=== PATIENT | male | born 1945 | race Caucasian/White ===

== ENCOUNTER → 2022-11-15 14:57 | Outpatient (BNVA) | payer OTHER, SELFPAY | PROVIDERS: PCP Internal Medicine; Visit Provider Psychiatry & Neurology Neurology | DX: G20 Parkinson's disease (principal) ==

== ENCOUNTER → 2023-02-14 16:01 | Outpatient (BNVA) | payer OTHER, SELFPAY | PROVIDERS: PCP Internal Medicine; Visit Provider Psychiatry & Neurology Neurology | DX: Z13.89 Encounter for screening for other disorder (principal) ==

== ENCOUNTER 2023-06-13 15:02 | Outpatient (AMB) | payer OTHER, SELFPAY ==
[2023-06-13 15:06] VITALS: BP 110/74; PULSE 60; O2SAT 99; BMI 26.1
--- NOTE | 2023-06-13 15:06 | MHC.OFFVIS ---
Intake Vital Signs 06/13/23 15:06 Height 5 ft 10 in Weight 182 lb 2 oz BMI 26.1 BP 110/74 Blood Pressure Location Rt brachial Position Sitting Pulse 60 Pulse Source Pulse Oximeter Pulse Oximetry (%) 99 Intake Visit Reasons: 3m f/u parkinsons-confirmed Intake Note: Patient presents for 3 month follow up parkinsons Allergies No Known Allergies Allergy (Mild, Unverified 06/13/23 15:07) N/A Medication List - Last Reconciled 06/13/23 by Raven Cade MD allopurinol 300 mg PO DAILY amantadine HCl 100 mg PO BID apixaban (Eliquis) 5 mg PO BID B-complex with vitamin C 1 cap PO DAILY calcium citrate 200 mg PO DAILY carbidopa-levodopa 25-100 mg 1 tab PO .5 times a day donepezil 1.5 tabs orally daily; finasteride 5 mg PO DAILY flu vac 2020 [id number](PF) 60 mcg (15 mcg x 4)/0.5 mL IM levothyroxine 125 mcg PO DAILY melatonin 3 mg PO BEDTIME PRN melatonin 1 mg PO BEDTIME PRN metoprolol tartrate 25 mg PO BID polyethylene glycol 3350 (Miralax) 17 grams PO DAILY rasagiline 1 mg PO DAILY tamsulosin 0.4 mg PO DAILY HPI HPI Comments History of Present Illness Details 78y/o Right handed male comes for follow up of Parkinsons disease. He is accompanied by his Adele.He is more fatigued . He is exercising 2 days a week and drinking 60 oz per day .His is not sure if amantadine 100 mg bid helped or not. He stopped nuplazid - his did not feel it helped. He has episodes of panic attacks- he talks about not being safe in the house . His plays some music and it helps . He denies visual hallucinations. History-He noticed shuffling about 6 years ago and it has progressively worsened since then and was diagnosed with parkinsons disease by Dr. Judge .He also has tremors are mostly at rest . He reports mild memory issues. Sleep is ok . He frequently talks in his sleep. No screaming or acting out dreams . He takes occasional daytime naps. He has mild depression and less motivated. He speech is softer or he has occasional drooling . He has difficulty with hand writing, using utensils, needs help with dressing , needs help with shower. He has trouble turning in bed, has trouble lifting his legs. He has trouble getting out of car. He goes to [facility] for 2 classes/week His gait is slow and mildly off balance No falls. No dizziness , no double vision . He has loose stools and mild urgency . [facility] Medical History (Updated 06/13/23 @ 15:33 by Raven Cade MD) Anxiety Arthritis Atrial fibrillation Borderline hyperlipidemia Neck pain ODILIA on CPAP Prediabetes Prostate enlargement Spasmodic torticollis Surgical History H/O lithotripsy H/O neck surgery Status post cryoablation Social History Alcohol intake: never Patient Tobacco Use Status: Never used Tobacco Physical Exam Vital Signs: Last Vital Signs Pulse 60 06/13/23 15:06 BP 110/74 06/13/23 15:06 Pulse Ox 99 06/13/23 15:06 BMI result Body Mass Index 26.1 Const Orientation/consciousness: patient oriented x3 Neuro Other: antecollis, right laterocollis, left torticollis Right UE rest tremors Moderately decreased facial expression , blink Tongue movements are slow Cogwheel rigidity 2+ RUE 1 + LUE FFM and foot taps moderately decreased R>L Gait - slow, stooped , tilted to right , decreased arm swings r>L Hypophonia General: patient oriented x3 Cranial nerves: Yes Facial sensation intact/muscles of mastication intact, Yes Bilaterally intact EOM present, Yes Nystagmus not present, Yes Normal facial strength present, Yes Midline tongue present and Yes Symmetric palate elevation present Motor exam (neuro): 5/5 motor strength present throughout Deep tendon reflexes (DTR's): Right triceps reflex intensity grade: 1+, Left triceps reflex intensity grade: 1+, Rt Biceps (C5, C6): 1+, Left biceps reflex intensity grade: 1+, Right brachioradialis reflex intensity grade: 1+, Left brachioradialis reflex intensity grade: 1+, Right patellar reflex intensity grade: 1+ and Left patellar reflex intensity grade: 1+ Coordination: [id number] test normal Psych Affect: Depressed mood present Assessment & Plan Assessment & Plan (1) Parkinson's disease: Code(s): G20 - Parkinson's disease (2) Spasmodic torticollis: Code(s): G24.3 - Spasmodic torticollis (3) Anxiety: Code(s): F41.9 - Anxiety disorder, unspecified Plan Continue sinemet 25/100 1tab 1-2-1-2-1 AMantadine 100mg bid rasagiline 1mg qd donepezil 10mg qd discussed botox for neck Medications: Changed From carbidopa-levodopa 25-100 mg 1 tab PO .5 times a day To carbidopa-levodopa 25-100 mg 1 tab tid and 2 bid ( 1-2-1-2-1) orally 5 TIMES A DAY; 210 tabs 6RF Coding Level of Care Code Est Pt Level 5 (16378) Diagnoses Parkinson's disease G20 Spasmodic torticollis G24.3 Anxiety F41.9 Time Spent (min) 33
== END 2023-06-13 15:43 | disposition home or self-care (01) ==
PROVIDERS: Visit Provider Psychiatry & Neurology Neurology
DX: G20 Parkinson's disease (principal); G24.3 Spasmodic torticollis; F41.9 Anxiety disorder, unspecified
CPT/HCPCS: 99214

== ENCOUNTER → 2023-06-13 15:02 | Outpatient (BNVA) | payer OTHER, SELFPAY | PROVIDERS: Visit Provider Psychiatry & Neurology Neurology | DX: G20 Parkinson's disease (principal); R44.3 Hallucinations, unspecified; G24.3 Spasmodic torticollis ==

== ENCOUNTER 2023-09-04 12:30 | Outpatient (AMB) | payer OTHER, SELFPAY ==
--- NOTE | 2023-09-04 12:40 | A.OFFVIS_ITS ---
Intake Vital Signs 09/04/23 12:41 Height 5 ft 10 in BP 118/68 Blood Pressure Location Rt brachial Position Sitting Respiration 15 Pulse 53 Pulse Source Pulse Oximeter Pulse Oximetry (%) 96 Oxygen Delivery Method Room Air Intake Visit Reasons: Botox appt - LVM Intake Note: Pt presents to the office for Botox injections. 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: No Allergies No Known Allergies Allergy (Mild, Unverified 09/04/23 12:41) N/A Medication List - Last Reconciled 09/04/23 by Raven Cade MD allopurinol 300 mg PO DAILY amantadine HCl 100 mg PO BID apixaban (Eliquis) 5 mg PO BID B-complex with vitamin C 1 cap PO DAILY calcium citrate 200 mg PO DAILY carbidopa-levodopa 25-100 mg 1 tab tid and 2 bid ( 1-2-1-2-1) orally 5 TIMES A DAY; donepezil 1.5 tabs orally daily; finasteride 5 mg PO DAILY flu vac 2020 [id number](PF) 60 mcg (15 mcg x 4)/0.5 mL IM levothyroxine 125 mcg PO DAILY melatonin 3 mg PO BEDTIME PRN melatonin 1 mg PO BEDTIME PRN metoprolol tartrate 25 mg PO BID polyethylene glycol 3350 (Miralax) 17 grams PO DAILY rasagiline 1 mg PO DAILY 90 days tamsulosin 0.4 mg PO DAILY HPI HPI Comments History of Present Illness Details 78Y/o male comes for treatment of his cervical dystonia. ? Side effects including spread of toxin effect, dysphagia, breathing difficulties , bronchitis etc was discussed in detail and the patient agreed to the procedure.An informed consent was obtained ??? Botulinum toxin type A 100units X 1 -was diluted with 2 cc of normal saline at a concentration of 25 units in 0.5cc saline. Lot number [id number] expiration 11/2025 ??? Muscles injected ??? mayur Splenius - 25 units each ??? right levator 25 units each ??? left semispinalis 25units each ??? Total used 100 units PFS Medical History Anxiety Spasmodic torticollis Neck pain ODILIA on CPAP Atrial fibrillation Arthritis Borderline hyperlipidemia Prostate enlargement Prediabetes Surgical History H/O neck surgery Status post cryoablation H/O lithotripsy Social History Alcohol intake: never Patient Tobacco Use Status: Never used Tobacco Physical Exam Vital Signs: Last Vital Signs Pulse 53 09/04/23 12:41 Resp 15 09/04/23 12:41 BP 118/68 09/04/23 12:41 Pulse Ox 96 09/04/23 12:41 Oxygen Delivery Method Room Air 09/04/23 12:41 Const Orientation/consciousness: patient oriented x3 Neuro Other: antecollis, right laterocollis, left torticollis Right UE rest tremors Moderately decreased facial expression , blink Tongue movements are slow Cogwheel rigidity 2+ RUE 1 + LUE FFM and foot taps moderately decreased R>L Gait - slow, stooped , tilted to right , decreased arm swings r>L Hypophonia General: patient oriented x3 Cranial nerves: Yes Facial sensation intact/muscles of mastication intact, Yes Bilaterally intact EOM present, Yes Nystagmus not present, Yes Normal facial strength present, Yes Midline tongue present and Yes Symmetric palate elevation present Motor exam (neuro): 5/5 motor strength present throughout Coordination: [id number] test normal Psych Affect: Depressed mood present Office Procedures Botulinum toxin Injection 88329 - Dystonia Procedure code (CPT) selection complete Office Meds onabotulinumtoxinA 100 unit solution for injection Performing Provider: Raven Cade MD Performing Location: [facility] [place] [facility] Administered by: Raven Cade MD on 09/04/23 13:23 Dose Route Admin Location Dispensed Lot Number Expiration Date [facility] [place] 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 100 unit IM 100 units [id number] 11/29/25 6662-8855-12 ALLERGAN/BOTOX Comments: see HPI Assessment & Plan Assessment & Plan (1) Spasmodic torticollis: Code(s): G24.3 - Spasmodic torticollis (2) Parkinson's disease: Code(s): G20 - Parkinson's disease Plan Patient tolerated the procedure well He will call with any side effects Increase melatonin 10mg qhs add caffiene to improve fatigue Orders: Orders AMB Botulinum toxin Injection Today G24.3 - Spasmodic torticollis Coding Level of Care Code Est Pt Level 1 (51261) Diagnoses Spasmodic torticollis G24.3 Parkinson's disease G20 CPT Codes Botox Injection - Botox 4: 34174 - Dystonia ([id number])
[2023-09-04 12:41] VITALS: BP 118/68; PULSE 53; RESP 15; O2SAT 96
== END 2023-09-04 13:23 | disposition home or self-care (01) ==
PROVIDERS: PCP Internal Medicine; Visit Provider Psychiatry & Neurology Neurology
DX: G24.3 Spasmodic torticollis (principal)
CPT/HCPCS: 64616

== ENCOUNTER → 2023-09-04 12:30 | Outpatient (BNVA) | payer OTHER, SELFPAY | PROVIDERS: PCP Internal Medicine; Visit Provider Psychiatry & Neurology Neurology | DX: G24.3 Spasmodic torticollis (principal); G20.C Parkinsonism, unspecified | CPT/HCPCS: 64616; 99211; J0585 ==

== ENCOUNTER 2023-11-15 11:30 | Emergency (ER) | payer OTHER, SELFPAY ==
[2023-11-15 11:44] VITALS: BP 128/56; PULSE 64; RESP 18; TEMP 37.1; O2SAT 99; BMI 25.1
--- NOTE | 2023-11-15 12:00 | ECG_ITS ---
Test Reason : fall Blood Pressure : / mmHG Vent. Rate : 061 BPM Atrial Rate : 000 BPM P-R Int : 000 ms QRS Dur : 084 ms QT Int : 406 ms P-R-T Axes : 000 -03 001 degrees QTc Int : 408 ms Atrial fibrillation with frequent ventricular-paced complexes Abnormal ECG When compared with ECG of 10-SEP-2018 21:12, Electronic ventricular pacemaker has replaced Atrial fibrillation Vent. rate has decreased BY 47 BPM Referred By: Mai Palmer Electronically Signed By:JUANPABLO MURRY
[2023-11-15 12:23] LABS: MANUAL DIFF FLAG NO
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
[2023-11-15 12:28] LABS: Basophils Percent Auto 1.1 % (0-2); Eosinophils Absolute Auto 0.1 X10*3/uL (0.0-0.4); Eosinophils Percent Auto 3.8 % (0-4); Hematocrit 33.4 % (42.0-52.0); Hemoglobin 11.1 g/dl (14.0-18.0); Imm Gran Abs Auto 0.01 X10*3/uL (0.00-0.03); Imm Gran Pct Auto 0.4 % (0.0-0.4); Lymphocytes Absolute Auto 0.5 X10*3/uL (1.2-4.9); Lymphocytes Percent Auto 17.7 % (20-40); Mean Corpuscular HGB Conc 33.2 g/dl (31.0-36.0); Mean Corpuscular Hemoglobin 33.6 pg (27.0-33.0); Mean Corpuscular Volume 101.2 fL (80.0-98.0); Mean Platelet Volume 8.6 fL (9.4-12.4); Monocytes Absolute Auto 0.3 X10*3/uL (0.1-1.2); Monocytes Percent Auto 11.3 % (2-11); Neutrophils Absolute Auto 1.7 x10*3/uL (2.0-8.3); Neutrophils Percent Auto 65.7 % (45-73); Platelet Count 210 X10*3/uL (160-400); Red Cell Distribution Width 13.2 % (11.0-16.0); White Blood Count 2.7 X10*3/uL (4.8-10.8)
[2023-11-15 12:47] LABS: Troponin-I High Sensitivity 3.3 ng/L (<3.5-35.0)
[2023-11-15 12:50] LABS: Alanine Aminotransferase < 5 U/L (0-40); Albumin Level 3.8 g/dL (3.5-5.0); Alkaline Phosphatase 82 U/L (39-117); Anion Gap 12 (12-20); Aspartate Amino Transferase 17 U/L (5-37); Bilirubin Direct 0.4 mg/dL (0.0-0.5); Blood Urea Nitrogen 18 mg/dL (9-16); Calcium 9.3 mg/dL (8.4-10.2); Carbon Dioxide 27 mmol/L (22-29); Chloride 109 mmol/L (96-108); Creatinine Clr Calc Pharmacy 62.8; Estimated Glomerular Filt Rate > 60; Glucose Random 93 mg/dL (60-115); Lipase 23 U/L (8-78); Magnesium 2.1 mg/dL (1.6-2.6); Potassium 3.5 mmol/L (3.3-5.1); Sodium 144 mmol/L (135-145); Total Protein 6.4 g/dL (6.5-8.0)
[2023-11-15 12:54] LABS: COVID-19 Test Negative (Negative); IDNOW Serial# 9DB6401D
[2023-11-15 14:04] LABS: Free T4 (Free Thyroxine) 1.16 ng/dL (0.71-1.85)
== END 2023-11-15 13:37 | disposition home or self-care (01) ==
PROVIDERS: Emergency Provider Emergency Medicine; PCP Internal Medicine
DX: S80.211A Abrasion, right knee, initial encounter (principal); G20.A1 Parkinson's disease without dyskinesia, without mention of fluctuations; F03.C11 Unspecified dementia, severe, with agitation; F05 Delirium due to known physiological condition; G47.33 Obstructive sleep apnea (adult) (pediatric); F41.1 Generalized anxiety disorder; F43.0 Acute stress reaction; I48.91 Unspecified atrial fibrillation; W01.10XA Fall on same level from slipping, tripping and stumbling with subsequent striking against unspecified object, initial encounter; Y93.9 Activity, unspecified; Y92.000 Kitchen of unspecified non-institutional (private) residence as the place of occurrence of the external cause; Y99.9 Unspecified external cause status; Z79.01 Long term (current) use of anticoagulants; Z79.899 Other long term (current) drug therapy; Z11.52 Encounter for screening for COVID-19; Z20.828 Contact with and (suspected) exposure to other viral communicable diseases
CPT/HCPCS: 80048; 80076; 83690; 83735; 84439; 84443; 84484; 85025; 87635; 93005; 99283; 99284

== ENCOUNTER → 2023-11-15 12:00 | Outpatient (BNV) | payer MEDICARE, SELFPAY | PROVIDERS: Emergency Provider Emergency Medicine; PCP Internal Medicine; Visit Provider Internal Medicine | DX: I48.91 Unspecified atrial fibrillation (principal) | CPT/HCPCS: 93010 ==

== ENCOUNTER 2023-11-23 13:49 | Inpatient (IN) | payer OTHER, MEDICARE, SELFPAY ==
--- NOTE | ~2023-11-23 | XR_ITS ---
EXAMINATION: XR CHEST CLINICAL INFORMATION: Abdominal pain and cough. Rule out pneumonia. COMPARISON: Previous chest x-ray most recent October 2019 TECHNIQUE: Frontal view of the chest was obtained. FINDINGS: The cardiac silhouette is slightly enlarged but stable. There is a left subclavian single chamber pacemaker with tip projecting over the ventricular apex. The lungs are clear. There is slight elevation of the right hemidiaphragm unchanged from previous exam. There is blunting at the right lateral costophrenic angle questionable for small right pleural effusion. No left pleural effusion. No pneumothorax Bony structures are unremarkable. XR/XR chest 1V IMPRESSION: No evidence of pneumonia.
--- NOTE | ~2023-11-23 | US_ITS ---
EXAMINATION: US ABDOMEN LIMITED, limited CLINICAL INFORMATION: Right upper quadrant pain. COMPARISON: 09/11/2018 TECHNIQUE: Real-time imaging of the right upper quadrant abdominal viscera. FINDINGS: The order states only to evaluate for gallstones, cholecystitis, dilated duct, duct stone. Therefore this is a limited exam. The liver and pancreas are not imaged. Right kidney is not imaged The gallbladder does demonstrate a large 2.9 x 1.4 x 2.5 cm gallstone. The gallbladder appears distended. There is some evidence of wall thickening and edema versus pericholecystic fluid at the interface with the liver. The common duct is 4 mm. US/US abdomen limited IMPRESSION: Limited exam as described. Cholelithiasis with gallbladder wall thickening and possible areas of gallbladder wall edema versus pericholecystic fluid. The common duct is not appear dilated. Cholecystitis cannot be excluded. If further evaluation is warranted recommend HIDA scan
--- NOTE | ~2023-11-23 | NM_ITS ---
EXAMINATION: JUANA BILIARY TRACT CLINICAL INFORMATION: Gallstones with wall thickening on ultrasound limited abdomen exam. COMPARISON: 11/23/2023.. TECHNIQUE: Following intravenous administration of 5 mCi of 90 9M technetium mebrofenin, imaging over the right upper quadrant was obtained up to 60 minutes. At 60 minutes 2 mg of CCK was administered and imaging was obtained over 30 minutes FINDINGS: Following injection of mebrofenin there is normal hepatic uptake without focal defects. There is prompt excretion of isotope with visualization of common bile duct by 10 to 12 minutes and gallbladder by 14-16 minutes. Small bowel is visualized by 18 minutes. Post-CCK the gallbladder ejection fraction at 30 minutes shows no emptying. NM/NM hepatobiliary w pharm IMPRESSION: Findings suggestive of dyskinetic gallbladder with no emptying seen post-CCK at 30 minutes. Normal hepatic uptake. Patent CBD and cystic duct.
--- NOTE | 2023-11-23 14:03 | ED.ABDPAIN ---
HPI - Abdominal Pain General Chief Complaint: Abdominal Pain Stated Complaint: ABD PAIN, DIZZINESS Time Seen by Provider: 11/23/23 13:50 Source: patient and EMS Limitations: other (Dementia) History of Present Illness HPI narrative: 78-year-old male with a history of dementia, atrial fibrillation on Eliquis, arthritis, hyperlipidemia, BPH, pre diabetes, anxiety, ODILIA on CPAP who was brought to emergency department by ambulance for evaluation of dyspnea, abdominal pain and low blood pressure. The patient has dementia and is an unreliable informant. Information came from the paramedics. The patient may have history of gallbladder disease and was complaining of abdominal pain which may have been relieved after the patient had a bowel movement. The patient called the patient's PCP. The patient was panting and sounded short of on the phone, therefore the PCP recommended calling an ambulance. The patient had no complaint of abdominal pain when the paramedics arrived but the patient's blood pressure was low 85/50. Patient had just received his metoprolol 1-2 hours prior to getting this blood pressure checked by the paramedics. The paramedics gave the patient normal saline 250 cc IV bolus and the patient's blood pressure on arrival was 110/50. At the time my evaluation the patient has no complaints, does not appear to be dyspneic or tachypneic , he lacks insight as to why he is here in the emergency department. 15:00 Patient's came to the emergency department. She states the patient was seen recently [facility] of her right upper quadrant pain, the patient had CT scan of the abdomen pelvis which revealed a common bile duct and the patient was instructed to get an outpatient ultrasound and return to the emergency department if he developed right upper quadrant pain again. 17:24 CT abdomen pelvis without IV contrast dated 11/16/2023 obtained from [facility]. Findings: Liver: Limited evaluation of the solid organ without IV contrast. Diffuse hepatic steatosis. There is a partially calcified low density lesion seen in segment 6 of the liver series. This measures up to 1.6 x 1.3 cm and is most likely a peripherally calcified hepatic cyst. Gallbladder: Cholelithiasis. No evidence of acute inflammation Bile ducts: Mild prominence of the upper common bile duct up to 1.2 cm. Impression: Cholelithiasis. There is dilatation of the common bile duct up to 1.2 cm which is new from the previous exam of 11/22/2022. No pericholecystic inflammatory stranding or additional findings to indicate acute inflammation. Related Data Home Medications Medication Instructions Recorded Confirmed allopurinol 300 mg tablet 300 mg PO DAILY 11/10/22 09/04/23 finasteride 5 mg tablet 5 mg PO DAILY 11/10/22 09/04/23 flu vacc (65yr IM 11/10/22 09/04/23 up)-[id number](PF) 60 mcg(15 mcgx4)/0.5 mL IM syringe levothyroxine 125 mcg tablet 125 mcg PO DAILY 11/10/22 09/04/23 metoprolol tartrate 25 mg tablet 25 mg PO BID 11/10/22 09/04/23 tamsulosin 0.4 mg capsule 0.4 mg PO DAILY 11/10/22 09/04/23 B-complex with vitamin C 1 cap PO DAILY 11/15/22 09/04/23 apixaban 5 mg tablet (Eliquis) 5 mg PO BID 11/15/22 09/04/23 calcium citrate 200 mg (950 mg) 200 mg PO DAILY 11/15/22 09/04/23 tablet melatonin 1 mg tablet 1 mg PO BEDTIME PRN 11/15/22 09/04/23 melatonin 3 mg capsule 3 mg PO BEDTIME PRN 11/15/22 09/04/23 polyethylene glycol 3350 17 17 g PO DAILY 11/15/22 09/04/23 gram/dose oral powder (Miralax) Previous Rx's Medication Instructions Recorded donepezil 10 mg tablet See Rx Instructions PO DAILY #45 02/14/23 tabs carbidopa 25 mg-levodopa 100 mg See Rx Instructions PO .5 times a 06/13/23 tablet day #210 tabs rasagiline 1 mg tablet 1 mg PO DAILY 90 days #90 tabs 08/26/23 quetiapine 25 mg tablet See Rx Instructions PO BEDTIME #30 10/18/23 tabs Allergies Allergy/AdvReac Type Severity Reaction Status Date / Time No Known Allergies Allergy Mild N/A Verified 11/23/23 14:19 Review of Systems Review of Systems Yes all other systems are reviewed and are negative [facility] Past Medical History [facility] Narrative: Social history: He lives at home with his . He does not smoke cigarettes drink alcohol or use drugs. Medical History Anxiety Spasmodic torticollis Neck pain ODILIA on CPAP Atrial fibrillation Arthritis Borderline hyperlipidemia Prostate enlargement Prediabetes Surgical History H/O neck surgery Status post cryoablation H/O lithotripsy Social History Social History Alcohol intake: current Alcohol intake frequency: holidays/special occasions only Patient Tobacco Use Status: Never used Tobacco Smoked in Last 30 Days: No Use of substances other than those prescribed or required for medical reasons: No Advance Directives: Yes Advance Directives Information Provided: No Advance Directives on File: No Physical Exam ED Vital Signs: Vital Signs - 24 hr 11/23/23 14:19 11/23/23 15:41 Temperature 98.6 F 98.5 F Pulse Rate 73 89 Respiratory Rate 20 15 Blood Pressure 144/69 H 165/63 H Pulse Oximetry 96 92 Oxygen Delivery Method Room Air Room Air BMI result Body Mass Index 25.7 Exam: General: Awake, alert in no distress, oriented to person, lacks insight as to why he is here Head: Normocephalic, atraumatic EENT: PERRL, Lids normal, sclera normal, conjunctiva normal, nose normal , ears normal, throat without erythema or exudates Neck: Supple, no adenopathy Lung: breath sounds symmetric, no wheezing, rales or rhonchi Chest: symmetric movement, nontender Heart: regular rate and rhythm, normal S1, S2 no murmurs or rubs Abdomen: soft, mild diffuse abdominal tenderness, increased tenderness in the right upper quadrant, no rebound, no voluntary or involuntary guarding, normoactive bowel sounds Back: no vertebral tenderness, no CVAT Extremities: no deformities, moves all extremities symmetrically Neuro: Awake, alert, oriented to person, normal speech, cranial nerves intact, moves all extremities symmetrically Psych: Pleasant, cooperative Medical Decision Making Medical Decision Making MDM Narrative: 78-year-old male with a history of dementia, atrial fibrillation on Eliquis, arthritis, hyperlipidemia, BPH, pre diabetes, anxiety, ODILIA on CPAP who was brought to emergency department by ambulance for evaluation of dyspnea, abdominal pain and low blood pressure. Information came from the paramedics, patient was having abdominal pain which may have improved after having a bowel movement, patient has a history of right upper quadrant pain seen at [facility] and CT scan revealed dilatation of the common bile duct 1.2 cm-new compared to 11/22/2022. Patient's was talking the PCP and they were concerned about the patient's presentation and ask the to call an ambulance. Paramedics state that the patient's blood pressure was low 85/50 but the patient had just received his metoprolol 1-2 hours prior to this blood pressure. Examination is consistent with the patient's dementia, he does have mild diffuse abdominal tenderness with increased tenderness in the right upper quadrant, exam is otherwise unremarkable I ordered the following evaluation: CBC, CMP, lipase, PTT, urinalysis, chest x-ray, O2 saturation monitor, laboratory monitor, IV insertion Differential diagnosis includes but is not limited to biliary colic, gallbladder disease, diverticulitis, pancreatitis, urinary tract infection, constipation, pneumonia 17:10 My interpretation patient's laboratory evaluation as follows: Low WBC 2300-chronic. Macrocytic anemia with an H&H of 11 and 33.2 with an MCV of 100.9-chronic BUN elevated 23. LFTs were normal including alk-phos and bilirubin. Lipase was normal. Ultrasound is concerning for acute cholecystitis, common bile duct is normal in size at this time I did discuss the patient's presentation with the covering surgeon, Dr. Kyle. Given the fact that the patient had a dilated common bile duct on the CT scan at [facility] (see my HPI). Dr. Kyle recommended that the patient be admitted to the hospitalist service, patient's Eliquis be stopped, GI consult be obtained to rule out choledocholithiasis. He also recommended treating with Zosyn IV Patient's presentation was discussed over tiger text with the covering hospitalist, physician assistant manager retail Mariza Crowe the patient will be admitted for further management. Admission/Observation Consideration of admission/observation: Escalation of care including admission/observation considered Consult Healthcare Provider Management of the patient was discussed with: Hospitalist and Director Of Category Management (Surgeon on-call, Dr. Kyle) Lab Data MDM Lab Attestation statement: I reviewed the patient's lab results. 11/23/23 14:18 11/23/23 14:18 Labs: Lab Results 11/23/23 11/23/23 Range/Units 14:18 14:58 WBC 2.3 L (4.8-10.8) X10*3/uL RBC 3.29 L (4.60-5.80) X10*6/uL Hgb 11.0 L (14.0-18.0) g/dl Hct 33.2 L (42.0-52.0) % MCV 100.9 H (80.0-98.0) fL MCH 33.4 H (27.0-33.0) pg MCHC 33.1 (31.0-36.0) g/dl RDW 13.2 (11.0-16.0) % Plt Count 188 (160-400) X10*3/uL MPV 8.3 L (9.4-12.4) fL Immature Gran % (Auto) 0.0 (0.0-0.4) % Neut % (Auto) 54.1 (45-73) % Lymph % (Auto) 25.8 (20-40) % [place] % (Auto) 14.0 H (2-11) % Eos % (Auto) 5.2 H (0-4) % Baso % (Auto) 0.9 (0-2) % Lymph # (Auto) 0.6 L (1.2-4.9) X10*3/uL [place] # (Auto) 0.3 (0.1-1.2) X10*3/uL Eos # (Auto) 0.1 (0.0-0.4) X10*3/uL Baso # (Auto) 0.0 (0.0-0.2) X10*3/uL Abs Immat Gran (auto) 0.00 (0.00-0.03) X10*3/uL Absolute Neuts (auto) 1.2 L (2.0-8.3) x10*3/uL Absolute Nucleated RBC 0.000 (0.0-0.012) X10*3/uL Nucleated RBC % (auto) 0.0 (0.0-0.2) /100WBC Sodium 143 (135-145) mmol/L Potassium 3.7 (3.3-5.1) mmol/L Chloride 109 H (96-108) mmol/L Carbon Dioxide 28 (22-29) mmol/L Anion Gap 10 L (12-20) BUN 23 H (9-16) mg/dL Creatinine 1.05 (0.5-1.4) mg/dL Estim Creat Clear Calc 57.9 Estimated GFR > 60 Random Glucose 96 (60-115) mg/dL Calcium 9.4 (8.4-10.2) mg/dL Total Bilirubin 0.9 (0.0-1.0) mg/dL AST 18 (5-37) U/L ALT 7 (0-40) U/L Alkaline Phosphatase 80 (39-117) U/L Total Protein 6.4 L (6.5-8.0) g/dL Albumin 3.8 (3.5-5.0) g/dL Lipase 21 (8-78) U/L Urine Color Yellow Urine Appearance Cloudy Urine pH 6.0 (5.0-9.0) Ur Specific [place] 1.015 (1.005-1.025) Urine Protein 30 (1+) H (Neg-Trace) mg/dL Urine Glucose (UA) Negative (Negative) mg/dL Urine Ketones Negative (Negative) mg/dL Urine Blood Large (3+) H (Negative) Urine Nitrite Negative (Negative) Ur Leukocyte Esterase Moderate (2+) H (Negative) Urine RBC >20 H (0-2) /HPF Urine WBC 11-20 H (0-5) /HPF Ur Squamous Epith Cells 3-5 (0-2) /HPF Calcium Oxalate Crystal Present Urine Bacteria None Seen (None Seen) Hyaline Casts 0-2 (0-2) /LPF Radiology Impression Discussion of test interpretation with radiology: I have reviewed the radiologist's reading. Radiologist Impression: EXAMINATION: US ABDOMEN LIMITED, limited CLINICAL INFORMATION: Right upper quadrant pain. COMPARISON: 09/11/2018 TECHNIQUE: Real-time imaging of the right upper quadrant abdominal viscera. FINDINGS: The order states only to evaluate for gallstones, cholecystitis, dilated duct, duct stone. Therefore this is a limited exam. The liver and pancreas are not imaged. Right kidney is not imaged The gallbladder does demonstrate a large 2.9 x 1.4 x 2.5 cm gallstone. The gallbladder appears distended. There is some evidence of wall thickening and edema versus pericholecystic fluid at the interface with the liver. The common duct is 4 mm. IMPRESSION: Limited exam as described. Cholelithiasis with gallbladder wall thickening and possible areas of gallbladder wall edema versus pericholecystic fluid. The common duct is not appear dilated. Cholecystitis cannot be excluded. If further evaluation is warranted recommend HIDA scan Dictated By: Wojciech Corbin MD Independent Historian Clinical information obtained from an independent historian. History obtained from or confirmed by: Spouse External Record Review External record reviewed: Outpatient record (CT scan from [facility]) Chronic Conditions Patient?s care impacted by: Other (Dementia) Discharge Plan Discharge Patient Disposition: Admitted As Inpatient Prescriptions: No Action rasagiline 1 mg tablet 1 mg PO DAILY 90 Days Qty: 90 0RF quetiapine 25 mg tablet See Rx Instructions PO BEDTIME Qty: 30 3RF Rx Instructions: 1/2 to 1 tab orally bedtime; allopurinol 300 mg tablet 300 mg PO DAILY finasteride 5 mg tablet 5 mg PO DAILY levothyroxine 125 mcg tablet 125 mcg PO DAILY metoprolol tartrate 25 mg tablet 25 mg PO BID tamsulosin 0.4 mg capsule 0.4 mg PO DAILY flu vac 2020 [id number](PF) 60 mcg (15 mcg x 4)/0.5 mL syringe IM Eliquis 5 mg tablet 5 mg PO BID melatonin 3 mg capsule 3 mg PO BEDTIME PRN B-complex with vitamin C Capsule 1 cap PO DAILY calcium citrate 200 mg (950 mg) tablet 200 mg PO DAILY polyethylene glycol 3350 [Miralax] 17 gram/dose powder 17 g PO DAILY melatonin 1 mg tablet 1 mg PO BEDTIME PRN donepezil 10 mg tablet See Rx Instructions PO DAILY Qty: 45 6RF Rx Instructions: 1.5 tabs orally daily; carbidopa-levodopa 25-100 mg tablet See Rx Instructions PO .5 times a day Qty: 210 6RF Rx Instructions: 1 tab tid and 2 bid ( 1-2-1-2-1) orally 5 TIMES A DAY;
[2023-11-23 14:19] VITALS: BP 144/69; PULSE 73; RESP 20; TEMP 37; O2SAT 96; BMI 25.7
[2023-11-23 14:23] LABS: MANUAL DIFF FLAG NO
[2023-11-23 14:26] LABS: Basophils Percent Auto 0.9 % (0-2); Eosinophils Absolute Auto 0.1 X10*3/uL (0.0-0.4); Eosinophils Percent Auto 5.2 % (0-4); Hematocrit 33.2 % (42.0-52.0); Lymphocytes Absolute Auto 0.6 X10*3/uL (1.2-4.9); Lymphocytes Percent Auto 25.8 % (20-40); Mean Corpuscular HGB Conc 33.1 g/dl (31.0-36.0); Mean Corpuscular Hemoglobin 33.4 pg (27.0-33.0); Mean Corpuscular Volume 100.9 fL (80.0-98.0); Mean Platelet Volume 8.3 fL (9.4-12.4); Monocytes Absolute Auto 0.3 X10*3/uL (0.1-1.2); Neutrophils Absolute Auto 1.2 x10*3/uL (2.0-8.3); Neutrophils Percent Auto 54.1 % (45-73); Platelet Count 188 X10*3/uL (160-400); Red Blood Count 3.29 X10*6/uL (4.60-5.80); Red Cell Distribution Width 13.2 % (11.0-16.0); SCAN SMEAR FLAG 1
[2023-11-23 14:29] LABS: White Blood Count 2.3 X10*3/uL (4.8-10.8)
--- NOTE | 2023-11-23 14:34 | PC.NURSE ---
patient a&ox2, c/o abd discomfort, iv previously inserted by ems, labs drawn, check embosser applied-afib with pvcs, vss, pt awaiting provider, call olivarez within reach, will continue to monitor
[2023-11-23 14:42] LABS: Alanine Aminotransferase 7 U/L (0-40); Albumin Level 3.8 g/dL (3.5-5.0); Alkaline Phosphatase 80 U/L (39-117); Anion Gap 10 (12-20); Aspartate Amino Transferase 18 U/L (5-37); Bilirubin Total 0.9 mg/dL (0.0-1.0); Blood Urea Nitrogen 23 mg/dL (9-16); Calcium 9.4 mg/dL (8.4-10.2); Carbon Dioxide 28 mmol/L (22-29); Chloride 109 mmol/L (96-108); Creatinine Clr Calc Pharmacy 57.9; Estimated Glomerular Filt Rate > 60; Glucose Random 96 mg/dL (60-115); Lipase 21 U/L (8-78); Potassium 3.7 mmol/L (3.3-5.1); Sodium 143 mmol/L (135-145); Total Protein 6.4 g/dL (6.5-8.0)
[2023-11-23 15:09] LABS: Appearance Urine Cloudy; Color Urine Yellow; Glucose Urine UA Negative (Negative); Leukocyte Esterase Urine Moderate (2+) (Negative); Nitrite Urine Negative (Negative); Specific Gravity - Urine 1.015 (1.005-1.025); UMIC TRIGGER UACC YES; Urine Blood Large (3+) (Negative); Urine Ketones Negative (Negative); Urine Protein 30 (1+) mg/dL (Neg-Trace)
[2023-11-23 15:24] LABS: Bacteria Urine None Seen (None Seen); Calcium Oxalate Crystals Urine Present; Hyaline Casts Urine 0-2 /LPF (0-2); RBC Urine >20 /HPF (0-2); UACC Culture Trigger YES
[2023-11-23 15:41] VITALS: BP 165/63; PULSE 89; RESP 15; TEMP 36.9; O2SAT 92
--- NOTE | 2023-11-23 17:14 | ECG_ITS ---
Test Reason : ABD PAIN Blood Pressure : / mmHG Vent. Rate : 073 BPM Atrial Rate : 000 BPM P-R Int : 000 ms QRS Dur : 084 ms QT Int : 376 ms P-R-T Axes : 000 -07 001 degrees QTc Int : 414 ms Atrial fibrillation with frequent ventricular-paced complexes Abnormal ECG When compared with ECG of 15-NOV-2023 12:05, Vent. rate has increased BY 12 BPM Referred By: Reggie James Electronically Signed By:Hipolito Shannon
[2023-11-23 18:00] VITALS: BP 143/74; PULSE 67; RESP 14; TEMP 36.8; O2SAT 98
[2023-11-23 18:03] LABS: INTERNATIONAL NORM RATIO 1.3 (0.9-1.1)
[2023-11-23 18:05] LABS: Lactic Acid 1.2 mmol/L (0.5-2.0)
[2023-11-23 18:06] LABS: Partial Thromboplastin Time 34.7 SEC (26.0-36.4)
[2023-11-23] MEDS: Piperacillin Sodium/Tazobactam 4.5 GM in 0.9 % Sodium Chloride 100 ML IV (18:42)
--- NOTE | 2023-11-23 18:51 | PM.IMHP ---
History of Present Illness Date of Service: 11/23/23 Attending physician on admission: Lawrence Florentino Chief Complaint: possible acute cholecystitis 78 y/o M with pmhx atrial fibrillation on Eliquis, arthritis, hyperlipidemia, BPH, pre diabetes, anxiety, ODILIA on CPAP came for abdominal pain and low blood pressure. The patient has dementia and unable to provide much hx. hx was taken from ed physician and patient . The patient may have history of gallbladder disease and was complaining of abdominal pain which may have been relieved after the patient had a bowel movement. said that abdominal pain started after eating ice cream and food. called paramedics-as per are his blood pressure was on borderline to low, he received his metoprolol 1-2 hours prior to getting this blood pressure checked by the paramedics-subsequently received normal saline 250 cc IV bolus and the patient's blood pressure on arrival was 110/50. When we saw the patient and even the ED physician report: Patient was not having any abdominal pain or any low blood pressure on arrival. patient was seen recently [facility] of her right upper quadrant pain,cta bd was done -please see below. labs ,imaging reviewed: Chronic leukopenia, BMP seems fine except BUN is 23 and creatinine is 1.05. Lactic acid 1.2, no fever: Abdominal ultrasound:ILimited exam as described. Cholelithiasis with gallbladder wall thickening and possible areas of gallbladder wall edema versus pericholecystic fluid. The common duct is not appear dilated. Cholecystitis cannot be excluded. he also had ct abd in [facility]: Diffuse hepatic steatosis. There is a partially calcified low density lesion seen in segment 6 of the liver series. This measures up to 1.6 x 1.3 cm and is most likely a peripherally calcified hepatic cyst. Gallbladder: Cholelithiasis. No evidence of acute inflammation,Bile ducts: Mild prominence of the upper common bile duct up to 1.2 cm. ED physician: Discussed the case with surgery recommended admission for possible cholecystitis -IV antibiotics, hold Eliquis for until surgery evaluation. Denies any new complaint of chest pain or shortness of breath or abdominal pain or fever or chills or nausea or vomiting or cough or weakness or numbness. Review of Systems Review of Systems: Yes all other systems are reviewed and are negative [facility] Medical History Anxiety Spasmodic torticollis Neck pain ODILIA on CPAP Atrial fibrillation Arthritis Borderline hyperlipidemia Prostate enlargement Prediabetes Surgical History H/O neck surgery Status post cryoablation H/O lithotripsy Social History Alcohol intake: current Alcohol intake frequency: holidays/special occasions only Patient Tobacco Use Status: Never used Tobacco Smoked in Last 30 Days: No Use of substances other than those prescribed or required for medical reasons: No Advance Directives: Yes Advance Directives Information Provided: No Advance Directives on File: No Meds Allergies Allergy/AdvReac Type Severity Reaction Status Date / Time No Known Allergies Allergy Mild N/A Verified 11/23/23 14:19 Active Medications: Current Medications Piperacillin Sod/Tazobactam (Sod 3.375 gm/ Sodium Chloride) 50 mls @ 100 mls/hr IV Q6H COLLINS Lactated Ringer's (Lr) 1,000 mls @ 80 mls/hr IVCONT .[id number] COLLINS Sodium Chloride (0.9 % Sodium Chloride Flush 3 Ml Syringe) 3 ml IVFLUSH QSHIFT COLLINS Home Medications Medication Instructions Recorded Confirmed Last Taken Type allopurinol 300 mg tablet 300 mg PO DAILY@1030 11/10/22 11/23/23 Unknown History finasteride 5 mg tablet 5 mg PO DAILY@1800 11/10/22 11/23/23 Unknown History levothyroxine 125 mcg tablet 125 mcg PO DAILY@0600 11/10/22 11/23/23 Unknown History metoprolol tartrate 25 mg tablet 37.5 mg PO BID 11/10/22 11/23/23 Unknown History tamsulosin 0.4 mg capsule 0.4 mg PO DAILY@199911/10/22 11/23/23 Unknown History B-complex with vitamin C 1 cap PO DAILY@1800 11/15/22 11/23/23 Unknown History apixaban 5 mg tablet (Eliquis) 5 mg PO BID 11/15/22 11/23/23 Unknown History polyethylene glycol 3350 17 17 g PO DAILY@0830 11/15/22 11/23/23 Unknown History gram/dose oral powder (Miralax) Bifidobacterium infantis 4 mg 4 mg PO BEDTIME 11/23/23 11/23/23 Unknown History capsule (Align) calcium citrate 250 mg PO DAILY@1500 11/23/23 11/23/23 Unknown History carbidopa 25 mg-levodopa 100 mg 1 tab PO BID@1200,1800 11/23/23 11/23/23 Unknown History tablet carbidopa 25 mg-levodopa 100 mg 1 tab PO TID@0900,1500,2100 11/23/23 11/23/23 Unknown History tablet donepezil 10 mg tablet 15 mg PO DAILY 11/23/23 11/23/23 Unknown History melatonin 10 mg tablet 10 mg PO BEDTIME 11/23/23 11/23/23 Unknown History multivitamin with minerals 1 tab PO DAILY@1500 11/23/23 11/23/23 Unknown History potassium chloride 20 mEq/15 mL 20 meq PO BEDTIME 11/23/23 11/23/23 Unknown History oral liquid quetiapine 25 mg tablet 25 mg PO BEDTIME 11/23/23 11/23/23 Unknown History rasagiline 1 mg tablet 1 mg PO DAILY@199911/23/23 11/23/23 Unknown History Physical Exam Vital Signs and Narrative: Vital Signs: Last Vital Signs Temp 98.3 F 11/23/23 18:00 Pulse 67 11/23/23 18:00 Resp 14 11/23/23 18:00 BP 143/74 H 11/23/23 18:00 Pulse Ox 98 11/23/23 18:00 O2 Del Method Room Air 11/23/23 18:00 BMI result Body Mass Index 25.7 Appearance: Alert.? Oriented X3.? not in distress.? Eyes: Pupils equal, round and reactive to light.? Sclera nonicteric.? ENT: Pharynx normal.? Moist mucous membranes. cvs: rrr, [id number] , no murmur res: clear to auscultation ,no rhonchii or wheezing abd: no rebound or guarding ,nt, bs present. ext pulses present , no cyanosis . neuro: axo3 , right laterocollis, left torticollis(please see neuro note from 09/04/23 for detailinfo) Results Labs 11/23/23 14:18 11/23/23 14:18 Labs: Laboratory Results - last 24 hr 11/23/23 11/23/23 11/23/23 14:18 14:58 17:49 MCV 100.9 H MCH 33.4 H MCHC 33.1 RDW 13.2 Plt Count 188 MPV 8.3 L Immature Gran % (Auto) 0.0 Neut % (Auto) 54.1 Lymph % (Auto) 25.8 [place] % (Auto) 14.0 H Eos % (Auto) 5.2 H Baso % (Auto) 0.9 Lymph # (Auto) 0.6 L [place] # (Auto) 0.3 Eos # (Auto) 0.1 Baso # (Auto) 0.0 Abs Immat Gran (auto) 0.00 Absolute Neuts (auto) 1.2 L Absolute Nucleated RBC 0.000 Nucleated RBC % (auto) 0.0 PT 16.0 H INR 1.3 H APTT 34.7 Anion Gap 10 L Estim Creat Clear Calc 57.9 Estimated GFR > 60 Random Glucose 96 Lactic Acid 1.2 Calcium 9.4 Total Bilirubin 0.9 AST 18 ALT 7 Alkaline Phosphatase 80 Total Protein 6.4 L Albumin 3.8 Lipase 21 Urine Color Yellow Urine Appearance Cloudy Urine pH 6.0 Ur Specific [place] 1.015 Urine Protein 30 (1+) H Urine Glucose (UA) Negative Urine Ketones Negative Urine Blood Large (3+) H Urine Nitrite Negative Ur Leukocyte Esterase Moderate (2+) H Urine RBC >20 H Urine WBC 11-20 H Ur Squamous Epith Cells 3-5 Calcium Oxalate Crystal Present Urine Bacteria None Seen Hyaline Casts 0-2 Blood Type Antibody Screen 11/23/23 17:50 MCV MCH MCHC RDW Plt Count MPV Immature Gran % (Auto) Neut % (Auto) Lymph % (Auto) [place] % (Auto) Eos % (Auto) Baso % (Auto) Lymph # (Auto) [place] # (Auto) Eos # (Auto) Baso # (Auto) Abs Immat Gran (auto) Absolute Neuts (auto) Absolute Nucleated RBC Nucleated RBC % (auto) PT INR APTT Anion Gap Estim Creat Clear Calc Estimated GFR Random Glucose Lactic Acid Calcium Total Bilirubin AST ALT Alkaline Phosphatase Total Protein Albumin Lipase Urine Color Urine Appearance Urine pH Ur Specific [place] Urine Protein Urine Glucose (UA) Urine Ketones Urine Blood Urine Nitrite Ur Leukocyte Esterase Urine RBC Urine WBC Ur Squamous Epith Cells Calcium Oxalate Crystal Urine Bacteria Hyaline Casts Blood Type O Positive Antibody Screen NEGATIVE Imaging Radiologist's Impressions: Impressions Chest X-Ray 11/23/23 14:35 IMPRESSION: No evidence of pneumonia. Abdomen Ultrasound 11/23/23 15:42 IMPRESSION: Limited exam as described. Cholelithiasis with gallbladder wall thickening and possible areas of gallbladder wall edema versus pericholecystic fluid. The common duct is not appear dilated. Cholecystitis cannot be excluded. If further evaluation is warranted recommend HIDA scan Assessment and Plan (1) Abdominal pain, acute, right upper quadrant: Status: Acute (2) Nausea: Status: Acute Plan 78 y/o M with pmhx atrial fibrillation on Eliquis, arthritis, hyperlipidemia, BPH, pre diabetes, anxiety, ODILIA on CPAP came for abdominal pain and low blood pressure. Possible acute cholecystitis ? ruq pain -resolved ct abd in [facility] shows cholelithiasis and mild bile ductal dilation NPO hold Eliquis IV hydration, pain management, IV Zosyn, surgery and GI evaluation AFib: Rate controlled Monitor on tele Blood pressure stable Medical reconciliation is pending Borderline blood pressure: Seems to be improved Monitor blood pressure closely, hold blood pressure medications for today. Medication reconciliation still pending BPH: Continue home medication but medical reconciliation is pending ODILIA: Continue CPAP Hyperlipidemia/anxiety: Home medication continue, medication reconciliation still pending DVT prophylaxis with SCD. In in my clinical judgment patient will benefit from 24-48 hour stay due to possible acute cholecystitis-need IV antibiotics, med monitoring clinically as well as need expert opinion. Patient management discussed with the patient in detail she understand and in agreement with the above plan, time spent 70 minute patient is full code. Quality Stroke Does the patient have a stroke diagnosis?: No VTE Prior VTE?: No VTE Risk Level:: Medical - moderate - high VTE Device Contraindication: N/A - Device Ordered VTE Drug Contraindication: N/A - Med Ordered
--- NOTE | 2023-11-23 19:14 | PHA.MEDREC ---
Pharmacy Consult ? Medication Reconciliation Pharmacy has completed the medication reconciliation. Confirmed medication with list brought from home. Dejah Pantoja CPht
[2023-11-23] MEDS: Lactated Ringers 1,000 ML 80 ML IVCONT (19:29)
[2023-11-23 19:32] VITALS: BP 149/80; PULSE 70; RESP 18; TEMP 36.8; O2SAT 98
--- NOTE | 2023-11-23 19:36 | MHC.EDTECH ---
This tech took over care at 1900, hourly rounds and vitals completed, patient is resting comfortably at this time, at bedside. Belonging list completed,and copy placed in chart. Patient urinated 250MLS of yellow urine in urinal. Patient is clean and dry at this time. Call olivarez in reach
--- NOTE | 2023-11-23 20:13 | MHC.EDTECH ---
Patient urinated 100MLS in urinal
[2023-11-23] MEDS: QUEtiapine Fumarate 25 MG TABLET PO (20:58)
[2023-11-23] MEDS: Potassium Chloride Packet 20 MEQ PACKET PO (20:58)
[2023-11-23] MEDS: Metoprolol Tartrate 12.5 MG HALFTAB 37.5 MG PO (20:59)
[2023-11-23] MEDS: Carbidopa/Levodopa 25/100 TABLET 1 TAB PO (20:59)
[2023-11-23] MEDS: Melatonin 3 MG TABLET 9 MG PO (20:59)
--- NOTE | 2023-11-23 21:00 | PC.NURSE ---
pt left bedside to let dogs out at home states will be returning pt increasily anxious and attempting to get out of bed after left bedside. when pt attempts to get up HR increasing to 100-130s hospitalist made aware awaiting home medications to be continued
--- NOTE | 2023-11-23 22:22 | MHC.EDTECH ---
Hourly rounds completed patient urinated 200MLS in urinal,patient is resting comfortably at this time. at bedside and was giving a recliner for comfort. call olivarez in reach
--- NOTE | 2023-11-23 23:00 | PC.NURSE ---
pt returned to bedside. pt states will be staying overnight. provided with recliner. pt calm and cooperative allowed to sleep
[2023-11-24 00:20] VITALS: BP 141/75; PULSE 68; RESP 22; TEMP 36.9; O2SAT 97
--- NOTE | 2023-11-24 00:28 | MHC.EDTECH ---
Hourly rounds and vitals completed,patient urinated 100MLS in urinal, patient is resting st this time no new complaints, at bedside in recliner lights dimmed and call olivarez in reach
[2023-11-24] MEDS: Piperacillin Sodium/Tazobactam 3.375 GM in 0.9 % Sodium Chloride 50 ML IV ×4 (01:53→18:03)
[2023-11-24 04:14] VITALS: BP 150/72; PULSE 74; RESP 20; TEMP 36.8; O2SAT 97
--- NOTE | 2023-11-24 04:17 | MHC.EDTECH ---
Hourly rounds and vitals completed,patient is resting comfortably and is at bedside.call olivarez in reach
[2023-11-24 05:56] VITALS: BP 161/81; PULSE 88; RESP 18; TEMP 36.9; O2SAT 97
--- NOTE | 2023-11-24 05:57 | MHC.EDTECH ---
Hourly rounds and vitals completed, patient urinated 100MLS in urinal,patient was incont. of a large amount of urine,patient was cleaned and repositioned. Call olivarez in reach
[2023-11-24] MEDS: Levothyroxine Sodium 125 MCG TABLET PO (06:14)
[2023-11-24 06:25] LABS: MANUAL DIFF FLAG NO
[2023-11-24 06:35] LABS: Basophils Percent Auto 0.9 % (0-2); Eosinophils Absolute Auto 0.3 X10*3/uL (0.0-0.4); Eosinophils Percent Auto 7.7 % (0-4); Hematocrit 35.7 % (42.0-52.0); Hemoglobin 12.2 g/dl (14.0-18.0); Imm Gran Abs Auto 0.01 X10*3/uL (0.00-0.03); Imm Gran Pct Auto 0.3 % (0.0-0.4); Lymphocytes Absolute Auto 0.9 X10*3/uL (1.2-4.9); Mean Corpuscular HGB Conc 34.2 g/dl (31.0-36.0); Mean Corpuscular Hemoglobin 33.5 pg (27.0-33.0); Mean Corpuscular Volume 98.1 fL (80.0-98.0); Mean Platelet Volume 8.8 fL (9.4-12.4); Monocytes Absolute Auto 0.4 X10*3/uL (0.1-1.2); Neutrophils Absolute Auto 1.6 x10*3/uL (2.0-8.3); Neutrophils Percent Auto 50.1 % (45-73); Platelet Count 210 X10*3/uL (160-400); Red Blood Count 3.64 X10*6/uL (4.60-5.80); Red Cell Distribution Width 12.7 % (11.0-16.0); White Blood Count 3.2 X10*3/uL (4.8-10.8)
[2023-11-24 06:43] LABS: Anion Gap 13 (12-20); Blood Urea Nitrogen 15 mg/dL (9-16); Calcium 9.3 mg/dL (8.4-10.2); Carbon Dioxide 25 mmol/L (22-29); Chloride 110 mmol/L (96-108); Creatinine Clr Calc Pharmacy 57.4; Estimated Glomerular Filt Rate > 60; Glucose Random 95 mg/dL (60-115); Potassium 3.3 mmol/L (3.3-5.1); Sodium 145 mmol/L (135-145)
--- NOTE | 2023-11-24 07:00 | CA_ITS ---
Transthoracic Echocardiogram Patient (Last, First, Middle): Avelino Jay M Gender: Male Date of : 1945 Age: 78 Procedure Date: 11/24/2023 Procedure Type: Transthoracic Echocardiogram Location: ER Height: 175.26 cm Weight: 78.93 kg BSA: 1.95 m2 Heart Rate: 88 bpm BP: 166 / 70 mmHg Nib Finisher: EMMANUEL Referring MD: Lawrence Florentino MD Symptoms: hx of afib/risk starification Study Quality: Fair ECG Rhythm: Atrial Fibrillation Conclusions: - Normal left ventricular size and systolic function. There is mildly increased left ventricular wall thickness. The visually estimated ejection fraction is between 60-65%. There is no evidence of regional wall motion abnormalities. Diastolic function is indeterminate on the basis of available data. - Normal right ventricular cavity size and systolic function. - The left atrium is moderately dilated. The right atrium is mildly dilated. - There is severe calcification of the aortic valve. There is moderate aortic valve stenosis. Findings Left Ventricle Normal left ventricular size and systolic function. There is mildly increased left ventricular wall thickness. The visually estimated ejection fraction is between 60-65%. There is no evidence of regional wall motion abnormalities. Diastolic function is indeterminate on the basis of available data. Right Ventricle Normal right ventricular cavity size and systolic function. Atria The left atrium is moderately dilated. The right atrium is mildly dilated. Aortic Valve There is severe calcification of the aortic valve. There is moderate aortic valve stenosis. The peak aortic velocity is 2.91 m/s. The mean gradient is 21 mmHg. The aortic valve area is 1.08 cm2. There is mild aortic valve regurgitation. Mitral Valve There is moderate mitral annular calcification. There is trace mitral valve regurgitation. There is no mitral valve stenosis. Pulmonic Valve The pulmonic valve is likely normal. Tricuspid Valve Normal tricuspid valve structure. There is trace tricuspid valve regurgitation. Tricuspid regurgitation envelope is inadequate for calculation of right ventricular systolic pressure. Indeterminate right atrial pressure. Great Vessels All visible segments of the aorta are normal in size. The visualized portions of the pulmonary artery and branches are normal. Venous The inferior vena cava was not well visualized. Pericardium/Pleural There is no evidence of pericardial effusion. Prior Study Comparison No prior study available for comparison. Measurements 2D Linear Measurements IVSd: 1.23 0.6-0.9/0.6-1.0 cm LVIDd: 4.76 3.9-5.3/4.2-5.9 cm LVIDd Index: 2.44 2.4-3.2/2.2-3.1 cm/m2 LVIDs: 2.96 2.0-3.6 cm LVPWd: 1.34 0.7-1.1 cm LA Diam: 4.70 2.7-3.8/3.0-4.0 cm LAIDs Index: 2.41 1.5-2.3 cm/m2 LV Mass: 297.42 67-162/88-224 g LV Mass Index: 152.52 43-95/49-115 g/m2 LVOT Diam: 2.00 3.0+(-)1.3 cm 2D Systolic Function EF 4C: 64.50 >55% EF 2C: 61.80 >55% EF BiP: 62.90 >55% Mitral Valve MV Pk E: 1.16 MV PK A: 0.44 MV Decel Time: 139.00 E/A: 2.70 E'Lateral: 8.27 E'Medial: 7.40 E/E' Med: 15.70 E/E' Lat: 14.00 PHT: 41.00 MVA PHT: 5.37 Decel [place]: 8.35 Aortic Valve AoV Pk Jean-Paul: 2.91 AoV Mn Jean-Paul: 1.98 AoV VTI: 0.59 AoV Pk Grad: 34.00 Aov Mn Grad: 21.00 DANNIE Cont.VTI: 1.08 AI Pk Jean-Paul: 3.37 AI [place]: 1.70 LVOT LVOT Pk Jean-Paul: 1.04 LVOT Mn Jean-Paul: 0.76 LVOT VTI: 0.22 LVOT Pk Grad: 4.00 LVOT Mn Grad: 3.00 LVOT Diam: 2.00 LVOT Area: 3.14 Diastolic Function MV Pk E: 1.16 MV Pk A: 0.44 E/A: 2.70 E'Medial: 7.40 E/E' Med: 15.70 E' Laterial: 8.27 E/E' Lat: 14.00 Right Ventricle TAPSE (mm): 18.40 TVS' Jean-Paul: 9.03 Tricuspid Valve TR Pk Jean-Paul: 1.83 TR Pk Grad: 13.00 Great Vessels Aorta Sinus of Valsalva: 3.40 2.0-3.5 cm Ao Asc: 3.30 2.1-3.4 cm Pulmonary Valve PV Pk Jean-Paul: 1.01 Peak PV Grad: 4.00 Updated in Other Vendor System with Status of Final Hipolito Shannon MD electronically signed on 11/24/2023 6:12:02 PM with status of Final
[2023-11-24 07:08] VITALS: BP 166/70; PULSE 92; RESP 29; O2SAT 99
[2023-11-24] MEDS: Lactated Ringers 1,000 ML 80 ML IVCONT (08:19)
[2023-11-24] MEDS: polyethylene glycoL 3350 17 GM POWD.PACK PO (08:19)
[2023-11-24] MEDS: Metoprolol Tartrate 12.5 MG HALFTAB 37.5 MG PO ×2 (08:19→20:41)
[2023-11-24] MEDS: Donepezil HCl 5 MG TABLET 15 MG PO (08:20)
[2023-11-24] MEDS: Carbidopa/Levodopa 25/100 TABLET 1 TAB PO ×4 (08:20→20:41)
[2023-11-24] MEDS: QUEtiapine Fumarate 25 MG TABLET 12.5 MG PO (08:20)
--- NOTE | 2023-11-24 11:18 | PM.CNCAR ---
History of Present Illness History of Present Illness Date of Service: 11/24/23 Requesting physician: Lawrence Florentino Chief complaint: Cholecystitis, preop assessment Narrative: [age] year gentleman was background history of Parkinson disease and atrial fibrillation and follows with Dr. Barone. He has been experiencing some nausea and went to [facility] where a CT scan was performed recently which showed gallstones. He also has kidney stones. As per the who gave most of the history, he has been able to walk independently but gets shortness of breath with walking. There has been some episodes where he chokes on food and there is is clearly some concerns about his fund GI due to Parkinson's disease. Today his blood pressure was low and they brought him to the emergency department. The patient is denying any significant symptoms currently. His workup has shown concern for hematuria and may be UTI as well as some gallstones on ultrasound along with pericholecystic fluid. Discussing with the the patient has been experiencing some shortness of breath with activity. She is saying he walks independently and his gait is stable despite having Parkinson's disease. He has an aortic stenosis murmur by examination and as per the it was never told to her whether this was severe in the past. They have seen Dr. Barone in the last 6 months. No chest discomfort. [facility] Past Medical History Medical History Anxiety Spasmodic torticollis Neck pain ODILIA on CPAP Atrial fibrillation Arthritis Borderline hyperlipidemia Prostate enlargement Prediabetes Surgical History Surgical History H/O neck surgery Status post cryoablation H/O lithotripsy Social History Social History Alcohol intake: current Alcohol intake frequency: holidays/special occasions only Patient Tobacco Use Status: Never used Tobacco Smoked in Last 30 Days: No Use of substances other than those prescribed or required for medical reasons: No Advance Directives: Yes Advance Directives Information Provided: No Advance Directives on File: No Nutrition Risks: No Nutritional Risk Meds Allergies Allergy/AdvReac Type Severity Reaction Status Date / Time No Known Allergies Allergy Mild N/A Verified 11/23/23 14:19 Active Medications: Current Medications Allopurinol (Allopurinol 300 Mg Tablet) 300 mg PO DAILY@1030 [facility] Calcium Carbonate (Calcium Carbonate 500 Mg Tablet) 500 mg PO DAILY@1500 [facility] Carbidopa/Levodopa (Carbidopa/Levodopa 25/100 Tablet) 1 tab PO TID@0900,1500,2100 [facility] Last Admin: 11/24/23 08:20 Dose: 1 tab Carbidopa/Levodopa (Carbidopa/Levodopa 25/100 Tablet) 1 tab PO BID@1200,1800 [facility] Donepezil HCl (Donepezil Hcl 5 Mg Tablet) 15 mg PO DAILY [facility] Last Admin: 11/24/23 08:20 Dose: 15 mg Finasteride (Finasteride 5 Mg Tablet) 5 mg PO DAILY@1800 [facility] Piperacillin Sod/Tazobactam (Sod 3.375 gm/ Sodium Chloride) 50 mls @ 100 mls/hr IV Q6H [facility] Last Infusion: 11/24/23 08:50 Dose: Infused Lactated Ringer's (Lr) 1,000 mls @ 80 mls/hr IVCONT .[id number] [facility] Last Admin: 11/24/23 08:19 Dose: 80 mls/hr Levothyroxine Sodium (Levothyroxine Sodium 125 Mcg Tablet) 125 mcg PO DAILY@0600 [facility] Last Admin: 11/24/23 06:14 Dose: 125 mcg Melatonin (Melatonin 3 Mg Tablet) 9 mg PO BEDTIME [facility] Last Admin: 11/23/23 20:59 Dose: 9 mg Metoprolol Tartrate (Metoprolol Tartrate 12.5 Mg Halftab) 37.5 mg PO BID [facility]; Protocol Last Admin: 11/24/23 08:19 Dose: 37.5 mg Multivitamins/Vitamin C (Multivitamin Tablet) 1 tab PO DAILY@1500 [facility] Pt Own (Rasagiline 1 (Mg Tablet)) 1 mg PO DAILY@2000 [facility] Polyethylene Glycol (Polyethylene Glycol 3350 17 Gm Powd.Pack) 17 gm PO DAILY@0830 [facility] Last Admin: 11/24/23 08:19 Dose: 17 gm Potassium Chloride (Potassium Chloride Packet 20 Meq Packet) 20 meq PO BEDTIME [facility] Last Admin: 11/23/23 20:58 Dose: 20 meq Quetiapine Fumarate (Quetiapine Fumarate 25 Mg Tablet) 12.5 mg PO DAILY [facility] Last Admin: 11/24/23 08:20 Dose: 12.5 mg Quetiapine Fumarate (Quetiapine Fumarate 25 Mg Tablet) 25 mg PO BEDTIME [facility] Last Admin: 11/23/23 20:58 Dose: 25 mg Sodium Chloride (0.9 % Sodium Chloride Flush 3 Ml Syringe) [facility] Last Admin: 11/24/23 08:20 Dose: Not Given Tamsulosin HCl (Tamsulosin Hcl 0.4 Mg Capsule) 0.4 mg PO DAILY@1999 [facility] Home Medications Medication Instructions Recorded Confirmed Last Taken Type allopurinol 300 mg tablet 300 mg PO DAILY@1030 11/10/22 11/23/23 Unknown History finasteride 5 mg tablet 5 mg PO DAILY@179911/10/22 11/23/23 Unknown History levothyroxine 125 mcg tablet 125 mcg PO DAILY@0611/10/22 11/23/23 Unknown History metoprolol tartrate 25 mg tablet 37.5 mg PO BID 11/10/22 11/23/23 Unknown History tamsulosin 0.4 mg capsule 0.4 mg PO DAILY@199911/10/22 11/23/23 Unknown History B-complex with vitamin C 1 cap PO DAILY@1800 11/15/22 11/23/23 Unknown History apixaban 5 mg tablet (Eliquis) 5 mg PO BID 11/15/22 11/23/23 Unknown History polyethylene glycol 3350 17 17 g PO DAILY@0830 11/15/22 11/23/23 Unknown History gram/dose oral powder (Miralax) Bifidobacterium infantis 4 mg 4 mg PO BEDTIME 11/23/23 11/23/23 Unknown History capsule (Align) calcium citrate 250 mg PO DAILY@1500 11/23/23 11/23/23 Unknown History carbidopa 25 mg-levodopa 100 mg 1 tab PO BID@1200,1800 11/23/23 11/23/23 Unknown History tablet carbidopa 25 mg-levodopa 100 mg 1 tab PO TID@0900,1500,2100 11/23/23 11/23/23 Unknown History tablet donepezil 10 mg tablet 15 mg PO DAILY 11/23/23 11/23/23 Unknown History melatonin 10 mg tablet 10 mg PO BEDTIME 11/23/23 11/23/23 Unknown History multivitamin with minerals 1 tab PO DAILY@1500 11/23/23 11/23/23 Unknown History potassium chloride 20 mEq/15 mL 20 meq PO BEDTIME 11/23/23 11/23/23 Unknown History oral liquid quetiapine 25 mg tablet 12.5 mg PO DAILY 11/23/23 11/23/23 Unknown History quetiapine 25 mg tablet 25 mg PO BEDTIME 11/23/23 11/23/23 Unknown History rasagiline 1 mg tablet 1 mg PO DAILY@199911/23/23 11/23/23 Unknown History Physical Exam Vital Signs: Vital Signs: Last Vital Signs Temp 98.5 F 11/24/23 05:56 Pulse 92 11/24/23 07:08 Resp 29 H 11/24/23 07:08 BP 166/70 H 11/24/23 07:08 Pulse Ox 99 11/24/23 07:08 O2 Del Method Room Air 11/24/23 07:08 BMI result Body Mass Index 25.7 GENERAL APPEARANCE: Frail. Tremors left arm. NECK: no carotid bruit, mild jugular venous distention. SKIN: no suspicious lesions, warm and dry. HEART: Ejection systolic murmur with preserved 2nd heart sound, irregular rate and rhythm. LUNGS: clear to auscultation bilaterally. ABDOMEN: soft, nontender. EXTREMITIES: no edema. PERIPHERAL PULSES: equal. NEUROLOGIC: No gross deficits, AAO X 3, left arm tremors due to Parkinson disease. Objective Labs and Meds 11/24/23 06:11 11/24/23 06:11 Lab results: Laboratory Results - last 24 hr 11/23/23 11/23/23 11/23/23 14:18 14:58 17:49 WBC 2.3 L RBC 3.29 L Hgb 11.0 L Hct 33.2 L MCV 100.9 H MCH 33.4 H MCHC 33.1 RDW 13.2 Plt Count 188 MPV 8.3 L Immature Gran % (Auto) 0.0 Neut % (Auto) 54.1 Lymph % (Auto) 25.8 Ware % (Auto) 14.0 H Eos % (Auto) 5.2 H Baso % (Auto) 0.9 Lymph # (Auto) 0.6 L [place] # (Auto) 0.3 Eos # (Auto) 0.1 Baso # (Auto) 0.0 Abs Immat Gran (auto) 0.00 Absolute Neuts (auto) 1.2 L Absolute Nucleated RBC 0.000 Nucleated RBC % (auto) 0.0 PT 16.0 H INR 1.3 H APTT 34.7 Sodium 143 Potassium 3.7 Chloride 109 H Carbon Dioxide 28 Anion Gap 10 L BUN 23 H Creatinine 1.05 Estim Creat Clear Calc 57.9 Estimated GFR > 60 Random Glucose 96 Lactic Acid 1.2 Calcium 9.4 Total Bilirubin 0.9 AST 18 ALT 7 Alkaline Phosphatase 80 Total Protein 6.4 L Albumin 3.8 Lipase 21 Urine Color Yellow Urine Appearance Cloudy Urine pH 6.0 Ur Specific [place] 1.015 Urine Protein 30 (1+) H Urine Glucose (UA) Negative Urine Ketones Negative Urine Blood Large (3+) H Urine Nitrite Negative Ur Leukocyte Esterase Moderate (2+) H Urine RBC >20 H Urine WBC 11-20 H Ur Squamous Epith Cells 3-5 Calcium Oxalate Crystal Present Urine Bacteria None Seen Hyaline Casts 0-2 Blood Type Antibody Screen 11/23/23 11/24/23 17:50 06:11 WBC 3.2 L RBC 3.64 L Hgb 12.2 L Hct 35.7 L MCV 98.1 H MCH 33.5 H MCHC 34.2 RDW 12.7 Plt Count 210 MPV 8.8 L Immature Gran % (Auto) 0.3 Neut % (Auto) 50.1 Lymph % (Auto) 29.0 Ware % (Auto) 12.0 H Eos % (Auto) 7.7 H Baso % (Auto) 0.9 Lymph # (Auto) 0.9 L Ware # (Auto) 0.4 Eos # (Auto) 0.3 Baso # (Auto) 0.0 Abs Immat Gran (auto) 0.01 Absolute Neuts (auto) 1.6 L Absolute Nucleated RBC 0.000 Nucleated RBC % (auto) 0.0 PT INR APTT Sodium 145 Potassium 3.3 Chloride 110 H Carbon Dioxide 25 Anion Gap 13 BUN 15 Creatinine 1.06 Estim Creat Clear Calc 57.4 Estimated GFR > 60 Random Glucose 95 Lactic Acid Calcium 9.3 Total Bilirubin AST ALT Alkaline Phosphatase Total Protein Albumin Lipase Urine Color Urine Appearance Urine pH Ur Specific [place] Urine Protein Urine Glucose (UA) Urine Ketones Urine Blood Urine Nitrite Ur Leukocyte Esterase Urine RBC Urine WBC Ur Squamous Epith Cells Calcium Oxalate Crystal Urine Bacteria Hyaline Casts Blood Type O Positive Antibody Screen NEGATIVE Imaging Radiologist's impression: Impressions Chest X-Ray 11/23/23 14:35 IMPRESSION: No evidence of pneumonia. Abdomen Ultrasound 11/23/23 15:42 IMPRESSION: Limited exam as described. Cholelithiasis with gallbladder wall thickening and possible areas of gallbladder wall edema versus pericholecystic fluid. The common duct is not appear dilated. Cholecystitis cannot be excluded. If further evaluation is warranted recommend HIDA scan Assessment and Plan (1) Cholelithiasis: Status: Acute (2) Atrial fibrillation: Status: Acute (3) Aortic stenosis: Status: Acute Plan 78-year-old gentleman presenting with hypotension and clinical workup has shown concern for cholecystitis. He clearly has cholelithiasis seen on CT scan as well as abdominal ultrasound. He has pericholecystic fluid which is a marker for inflammation around the gallbladder but sometimes also marker for congestive heart failure. He has been experiencing some shortness of breath. Hard to know how robust he is as he seems quite frail but the is saying that he has been walking independently without any issues in the past. He also has aortic stenosis murmur which by examination is moderate as a 2nd heart sound is fairly preserved. He has chronic atrial fibrillation and rate control. He also had a pulmonary embolism in the past and cardiac arrest due to that and has been on Eliquis for atrial fibrillation and previous pulmonary embolism. He had medications interrupted before urological procedures in the past without any issues. Please request records from [facility]. Surgical assessment to confirm diagnosis. If it is felt that this is not cholecystitis then would favor resuming his anticoagulation or at least give him Lovenox in the meantime. We will get an echocardiogram on him today. Thank you for allowing me to participate in the care of your patient. Please feel free to contact me if you have any questions. Procedures Date of Service Date of Service: 11/24/23
--- NOTE | 2023-11-24 11:25 | P.PNIM_ITS ---
Subjective Subjective Date of Service: 11/24/23 Interval History: possible acute cholecystitis Review of Systems Denies any abdominal pain or fever or chills. Physical Exam 2 Vital Signs: Vital Signs: Last Vital Signs Temp 98.5 F 11/24/23 05:56 Pulse 92 11/24/23 07:08 Resp 29 H 11/24/23 07:08 BP 166/70 H 11/24/23 07:08 Pulse Ox 99 11/24/23 07:08 O2 Del Method Room Air 11/24/23 07:08 BMI result Body Mass Index 25.7 Appearance: Alert.? Oriented X3.? not in distress.? cvs: rrr, [id number] . res: clear to auscultation ,no rhonchii or wheezing abd: no rebound or guarding ,nt, bs present. ext pulses present , no cyanosis . neuro: axo3 ,at baseline Objective Data Active Medications Allopurinol (Allopurinol 300 Mg Tablet) 300 mg PO DAILY@1030 [facility] Calcium Carbonate (Calcium Carbonate 500 Mg Tablet) 500 mg PO DAILY@1500 [facility] Carbidopa/Levodopa (Carbidopa/Levodopa 25/100 Tablet) 1 tab PO TID@0900,1500,2100 [facility] Last Admin: 11/24/23 08:20 Dose: 1 tab Documented By: LUIS ENRIQUE Carbidopa/Levodopa (Carbidopa/Levodopa 25/100 Tablet) 1 tab PO BID@1200,1800 [facility] Donepezil HCl (Donepezil Hcl 5 Mg Tablet) 15 mg PO DAILY [facility] Last Admin: 11/24/23 08:20 Dose: 15 mg Documented By: LUIS ENRIQUE Finasteride (Finasteride 5 Mg Tablet) 5 mg PO DAILY@1800 [facility] Piperacillin Sod/Tazobactam (Sod 3.375 gm/ Sodium Chloride) 50 mls @ 100 mls/hr IV Q6H [facility] Last Infusion: 11/24/23 08:50 Dose: Infused Documented By: LUIS ENRIQUE Lactated Ringer's (Lr) 1,000 mls @ 80 mls/hr IVCONT .[id number] [facility] Last Admin: 11/24/23 08:19 Dose: 80 mls/hr Documented By: LUIS ENRIQUE Levothyroxine Sodium (Levothyroxine Sodium 125 Mcg Tablet) 125 mcg PO DAILY@0600 [facility] Last Admin: 11/24/23 06:14 Dose: 125 mcg Documented By: TIERRA Melatonin (Melatonin 3 Mg Tablet) 9 mg PO BEDTIME [facility] Last Admin: 11/23/23 20:59 Dose: 9 mg Documented By: TIERRA Metoprolol Tartrate (Metoprolol Tartrate 12.5 Mg Halftab) 37.5 mg PO BID [facility]; Protocol Last Admin: 11/24/23 08:19 Dose: 37.5 mg Documented By: LUIS ENRIQUE Multivitamins/Vitamin C (Multivitamin Tablet) 1 tab PO DAILY@1500 [facility] Pt Own (Rasagiline 1 (Mg Tablet)) 1 mg PO DAILY@1999 [facility] Polyethylene Glycol (Polyethylene Glycol 3350 17 Gm Powd.Pack) 17 gm PO DAILY@08 [facility] Last Admin: 11/24/23 08:19 Dose: 17 gm Documented By: LUIS ENRIQUE Potassium Chloride (Potassium Chloride Packet 20 Meq Packet) 20 meq PO BEDTIME [facility] Last Admin: 11/23/23 20:58 Dose: 20 meq Documented By: TIERRA Quetiapine Fumarate (Quetiapine Fumarate 25 Mg Tablet) 12.5 mg PO DAILY [facility] Last Admin: 11/24/23 08:20 Dose: 12.5 mg Documented By: LUIS ENRIQUE Quetiapine Fumarate (Quetiapine Fumarate 25 Mg Tablet) 25 mg PO BEDTIME [facility] Last Admin: 11/23/23 20:58 Dose: 25 mg Documented By: TIERRA Sodium Chloride (0.9 % Sodium Chloride Flush 3 Ml Syringe) 3 ml IVFLUSH QSHIFT COUNT [facility]CLUDES [facility] Last Admin: 11/24/23 08:20 Dose: Not Given Documented By: LUIS ENRIQUE Non-Admin Reason: IV Running Tamsulosin HCl (Tamsulosin Hcl 0.4 Mg Capsule) 0.4 mg PO DAILY@1999 [facility] Labs 11/24/23 06:11 11/24/23 06:11 Labs: Laboratory Results - last 24 hr 11/23/23 11/23/23 11/23/23 14:18 14:58 17:49 MCV 100.9 H MCH 33.4 H MCHC 33.1 RDW 13.2 Plt Count 188 MPV 8.3 L Immature Gran % (Auto) 0.0 Neut % (Auto) 54.1 Lymph % (Auto) 25.8 [place] % (Auto) 14.0 H Eos % (Auto) 5.2 H Baso % (Auto) 0.9 Lymph # (Auto) 0.6 L [place] # (Auto) 0.3 Eos # (Auto) 0.1 Baso # (Auto) 0.0 Abs Immat Gran (auto) 0.00 Absolute Neuts (auto) 1.2 L Absolute Nucleated RBC 0.000 Nucleated RBC % (auto) 0.0 PT 16.0 H INR 1.3 H APTT 34.7 Anion Gap 10 L Estim Creat Clear Calc 57.9 Estimated GFR > 60 Random Glucose 96 Lactic Acid 1.2 Calcium 9.4 Total Bilirubin 0.9 AST 18 ALT 7 Alkaline Phosphatase 80 Total Protein 6.4 L Albumin 3.8 Lipase 21 Urine Color Yellow Urine Appearance Cloudy Urine pH 6.0 Ur Specific [place] 1.015 Urine Protein 30 (1+) H Urine Glucose (UA) Negative Urine Ketones Negative Urine Blood Large (3+) H Urine Nitrite Negative Ur Leukocyte Esterase Moderate (2+) H Urine RBC >20 H Urine WBC 11-20 H Ur Squamous Epith Cells 3-5 Calcium Oxalate Crystal Present Urine Bacteria None Seen Hyaline Casts 0-2 Blood Type Antibody Screen 11/23/23 11/24/23 17:50 06:11 MCV 98.1 H MCH 33.5 H MCHC 34.2 RDW 12.7 Plt Count 210 MPV 8.8 L Immature Gran % (Auto) 0.3 Neut % (Auto) 50.1 Lymph % (Auto) 29.0 [place] % (Auto) 12.0 H Eos % (Auto) 7.7 H Baso % (Auto) 0.9 Lymph # (Auto) 0.9 L [place] # (Auto) 0.4 Eos # (Auto) 0.3 Baso # (Auto) 0.0 Abs Immat Gran (auto) 0.01 Absolute Neuts (auto) 1.6 L Absolute Nucleated RBC 0.000 Nucleated RBC % (auto) 0.0 PT INR APTT Anion Gap 13 Estim Creat Clear Calc 57.4 Estimated GFR > 60 Random Glucose 95 Lactic Acid Calcium 9.3 Total Bilirubin AST ALT Alkaline Phosphatase Total Protein Albumin Lipase Urine Color Urine Appearance Urine pH Ur Specific [place] Urine Protein Urine Glucose (UA) Urine Ketones Urine Blood Urine Nitrite Ur Leukocyte Esterase Urine RBC Urine WBC Ur Squamous Epith Cells Calcium Oxalate Crystal Urine Bacteria Hyaline Casts Blood Type O Positive Antibody Screen NEGATIVE Assessment and Plan (1) Abdominal pain, acute, right upper quadrant: Status: Acute Plan 78 y/o M with pmhx atrial fibrillation on Eliquis, arthritis, hyperlipidemia, BPH, pre diabetes, anxiety, ODILIA on CPAP came for abdominal pain and low blood pressure. Possible acute cholecystitis ? ruq pain -resolved ct abd in [facility] shows cholelithiasis and mild bile ductal dilation cultures pending NPO hold Eliquis IV hydration, IV Zosyn(started on 11/23/23), pain management. surgery eval -planing for surgery -cholecystectmy -added cardiology clearence for above. AFib: Rate controlled Monitor on tele Blood pressure stable continue metoprolol Borderline blood pressure: Seems to be improved. Monitor blood pressure closely BPH: Continue home medication but medical reconciliation is pending ODILIA: Continue CPAP Hyperlipidemia/anxiety: Home medication continue. DVT prophylaxis with SCD. In in my clinical judgment ongoing hospitlisation need : due to possible acute cholecystitis-need IV antibiotics,need Quality Stroke Does the patient have a stroke diagnosis?: No VTE Prior VTE?: No VTE Risk Level:: Medical - moderate - high VTE Device Contraindication: N/A - Device Ordered VTE Drug Contraindication: N/A - Med Ordered
[2023-11-24] MEDS: allopurinoL 300 MG TABLET PO (11:51)
--- NOTE | 2023-11-24 12:24 | PC.NURSE ---
spoke with Jaja confirmed pt has been NPO since yesterday
[2023-11-24 12:43] LABS: Alanine Aminotransferase 10 U/L (0-40); Albumin Level 3.8 g/dL (3.5-5.0); Alkaline Phosphatase 80 U/L (39-117); Aspartate Amino Transferase 18 U/L (5-37); Bilirubin Direct 0.5 mg/dL (0.0-0.5); Bilirubin Total 1.3 mg/dL (0.0-1.0); Total Protein 6.6 g/dL (6.5-8.0)
--- NOTE | 2023-11-24 13:34 | P.EN_ITS ---
Event Note Date of Service: 11/24/23 Event Note: GI consult requested on this 78 YM admitted with RUQ pain since abd CT scan at [facility] [place] showed a dilated CBD. Pt had an Abd US at [facility] [place] which showed a normal CBD. Pt had normal LFTs in admission. RECOMMENDATION: 1. Proceed with HIDA scan as scheduled No indicated for ERCP at present 11/23/23 ABD US: The gallbladder does demonstrate a large 2.9 x 1.4 x 2.5 cm gallstone. The gallbladder appears distended. There is some evidence of wall thickening and edema versus pericholecystic fluid at the interface with the liver. The common duct is 4 mm.a normal CBD of 4 mm 11/16/23 CT abdomen pelvis without IV contrast Findings: Liver: Limited evaluation of the solid organ without IV contrast. Diffuse hepatic steatosis. There is a partially calcified low density lesion seen in segment 6 of the liver series. This measures up to 1.6 x 1.3 cm and is most likely a peripherally calcified hepatic cyst. Gallbladder: Cholelithiasis. No evidence of acute inflammation Bile ducts: Mild prominence of the upper common bile duct up to 1.2 cm. Impression: Cholelithiasis. There is dilatation of the common bile duct up to 1.2 cm which is new from the previous exam of 11/22/2022. No pericholecystic inflammatory stranding or additional findings to indicate acute inflammation. Time Spent With Patient Time: Total time managing care of this patient today ____ minutes.
[2023-11-24] MEDS: Enoxaparin Sodium 80 MG/0.8 ML SYRINGE SUBCUT (13:48)
--- NOTE | 2023-11-24 14:36 | P.CONGS_ITS ---
History of Present Illness Consult details Consult date: 11/24/23 Narrative: Patient is a 78-year-old male with many many comorbidities and intercurrent medical problems who presents here for a variety of complaints. Patient has had an extensive hospitalization at [facility]. Patient was evaluated presence of his who is very attentive and documenting all conversation I had with her. Very limited exam could be obtained from patient secondary to his dementia. His offered collateral history. At present, she states his abdominal symptoms have resolved. Chart was reviewed and patient evaluated; patient on Eliquis pre hospitalization. CT scan and labs reviewed. LFTs essentially normal. [facility] Past Medical History Medical History Anxiety Spasmodic torticollis Neck pain ODILIA on CPAP Atrial fibrillation Arthritis Borderline hyperlipidemia Prostate enlargement Prediabetes Surgical History Surgical History H/O neck surgery Status post cryoablation H/O lithotripsy Social History Social History Alcohol intake: current Alcohol intake frequency: holidays/special occasions only Patient Tobacco Use Status: Never used Tobacco Smoked in Last 30 Days: No Use of substances other than those prescribed or required for medical reasons: No Advance Directives: Yes Advance Directives Information Provided: No Advance Directives on File: No Nutrition Risks: No Nutritional Risk Meds Allergies Allergy/AdvReac Type Severity Reaction Status Date / Time No Known Allergies Allergy Mild N/A Verified 11/23/23 14:19 Active Medications: Current Medications Allopurinol (Allopurinol 300 Mg Tablet) 300 mg PO DAILY@1030 [facility] Last Admin: 11/24/23 11:51 Dose: 300 mg Calcium Carbonate (Calcium Carbonate 500 Mg Tablet) 500 mg PO DAILY@1500 [facility] Carbidopa/Levodopa (Carbidopa/Levodopa 25/100 Tablet) 1 tab PO TID@0900,1500,2100 [facility] Last Admin: 11/24/23 08:20 Dose: 1 tab Carbidopa/Levodopa (Carbidopa/Levodopa 25/100 Tablet) 1 tab PO BID@1200,1800 [facility] Last Admin: 11/24/23 11:51 Dose: 1 tab Donepezil HCl (Donepezil Hcl 5 Mg Tablet) 15 mg PO DAILY [facility] Last Admin: 11/24/23 08:20 Dose: 15 mg Enoxaparin Sodium (Enoxaparin Sodium 80 Mg/0.8 Ml Syringe) 80 mg SUBCUT Q12H [facility] Last Admin: 11/24/23 13:48 Dose: 80 mg Finasteride (Finasteride 5 Mg Tablet) 5 mg PO DAILY@1800 [facility] Piperacillin Sod/Tazobactam (Sod 3.375 gm/ Sodium Chloride) 50 mls @ 100 mls/hr IV Q6H [facility] Last Infusion: 11/24/23 14:35 Dose: Infused Lactated Ringer's (Lr) 1,000 mls @ 80 mls/hr IVCONT .[id number] [facility] Last Admin: 11/24/23 08:19 Dose: 80 mls/hr Levothyroxine Sodium (Levothyroxine Sodium 125 Mcg Tablet) 125 mcg PO DAILY@0600 [facility] Last Admin: 11/24/23 06:14 Dose: 125 mcg Melatonin (Melatonin 3 Mg Tablet) 9 mg PO BEDTIME [facility] Last Admin: 11/23/23 20:59 Dose: 9 mg Metoprolol Tartrate (Metoprolol Tartrate 12.5 Mg Halftab) 37.5 mg PO BID [facility]; Protocol Last Admin: 11/24/23 08:19 Dose: 37.5 mg Multivitamins/Vitamin C (Multivitamin Tablet) 1 tab PO DAILY@1500 [facility] Pt Own (Rasagiline 1 (Mg Tablet)) 1 mg PO DAILY@2000 [facility] Polyethylene Glycol (Polyethylene Glycol 3350 17 Gm Powd.Pack) 17 gm PO DAILY@0830 [facility] Last Admin: 11/24/23 08:19 Dose: 17 gm Potassium Chloride (Potassium Chloride Packet 20 Meq Packet) 20 meq PO BEDTIME [facility] Last Admin: 11/23/23 20:58 Dose: 20 meq Quetiapine Fumarate (Quetiapine Fumarate 25 Mg Tablet) 12.5 mg PO DAILY [facility] Last Admin: 11/24/23 08:20 Dose: 12.5 mg Quetiapine Fumarate (Quetiapine Fumarate 25 Mg Tablet) 25 mg PO BEDTIME [facility] Last Admin: 11/23/23 20:58 Dose: 25 mg Sodium Chloride (0.9 % Sodium Chloride Flush 3 Ml Syringe) 3 ml IVFLUSH QSHIFT [facility] Last Admin: 11/24/23 08:20 Dose: Not Given Tamsulosin HCl (Tamsulosin Hcl 0.4 Mg Capsule) 0.4 mg PO DAILY@1999 [facility] Home Medications Medication Instructions Recorded Confirmed Last Taken Type allopurinol 300 mg tablet 300 mg PO DAILY@1030 11/10/22 11/23/23 Unknown History finasteride 5 mg tablet 5 mg PO DAILY@1800 11/10/22 11/23/23 Unknown History levothyroxine 125 mcg tablet 125 mcg PO DAILY@0600 11/10/22 11/23/23 Unknown History metoprolol tartrate 25 mg tablet 37.5 mg PO BID 11/10/22 11/23/23 Unknown History tamsulosin 0.4 mg capsule 0.4 mg PO DAILY@199911/10/22 11/23/23 Unknown History B-complex with vitamin C 1 cap PO DAILY@1800 11/15/22 11/23/23 Unknown History apixaban 5 mg tablet (Eliquis) 5 mg PO BID 11/15/22 11/23/23 Unknown History polyethylene glycol 3350 17 17 g PO DAILY@0830 11/15/22 11/23/23 Unknown History gram/dose oral powder (Miralax) Bifidobacterium infantis 4 mg 4 mg PO BEDTIME 11/23/23 11/23/23 Unknown History capsule (Align) calcium citrate 250 mg PO DAILY@1500 11/23/23 11/23/23 Unknown History carbidopa 25 mg-levodopa 100 mg 1 tab PO BID@1200,1800 11/23/23 11/23/23 Unknown History tablet carbidopa 25 mg-levodopa 100 mg 1 tab PO TID@0900,1500,2100 11/23/23 11/23/23 Unknown History tablet donepezil 10 mg tablet 15 mg PO DAILY 11/23/23 11/23/23 Unknown History melatonin 10 mg tablet 10 mg PO BEDTIME 11/23/23 11/23/23 Unknown History multivitamin with minerals 1 tab PO DAILY@1500 11/23/23 11/23/23 Unknown History potassium chloride 20 mEq/15 mL 20 meq PO BEDTIME 11/23/23 11/23/23 Unknown History oral liquid quetiapine 25 mg tablet 12.5 mg PO DAILY 11/23/23 11/23/23 Unknown History quetiapine 25 mg tablet 25 mg PO BEDTIME 11/23/23 11/23/23 Unknown History rasagiline 1 mg tablet 1 mg PO DAILY@199911/23/23 11/23/23 Unknown History Physical Exam 2 Vital Signs: Vital Signs: Last Vital Signs Temp 98.5 F 11/24/23 05:56 Pulse 92 11/24/23 07:08 Resp 29 H 11/24/23 07:08 BP 166/70 H 11/24/23 07:08 Pulse Ox 99 11/24/23 07:08 O2 Del Method Room Air 11/24/23 07:08 BMI result Body Mass Index 25.7 GI: Other: Abdomen soft, benign. No evidence of any guarding, rebound, or rigidity. No obvious Mccallum's sign. Results Labs 11/24/23 06:11 11/24/23 06:11 Labs: Abnormal lab results 11/23/23 11/23/23 11/23/23 Range/Units 14:18 14:58 17:49 WBC (4.8-10.8) X10*3/uL RBC (4.60-5.80) X10*6/uL Hgb (14.0-18.0) g/dl Hct (42.0-52.0) % MCV (80.0-98.0) fL MCH (27.0-33.0) pg MPV (9.4-12.4) fL [place] % (Auto) (2-11) % Eos % (Auto) (0-4) % Lymph # (Auto) (1.2-4.9) X10*3/uL Absolute Neuts (auto) (2.0-8.3) x10*3/uL PT 16.0 H (11.1-13.3) SEC INR 1.3 H (0.9-1.1) Chloride 109 H (96-108) mmol/L Anion Gap 10 L (12-20) BUN 23 H (9-16) mg/dL Total Bilirubin (0.0-1.0) mg/dL Total Protein 6.4 L (6.5-8.0) g/dL Urine Protein 30 (1+) H (Neg-Trace) mg/dL Urine Blood Large (3+) H (Negative) Ur Leukocyte Esterase Moderate (2+) H (Negative) Urine RBC >20 H (0-2) /HPF Urine WBC 11-20 H (0-5) /HPF 11/24/23 Range/Units 06:11 WBC 3.2 L (4.8-10.8) X10*3/uL RBC 3.64 L (4.60-5.80) X10*6/uL Hgb 12.2 L (14.0-18.0) g/dl Hct 35.7 L (42.0-52.0) % MCV 98.1 H (80.0-98.0) fL MCH 33.5 H (27.0-33.0) pg MPV 8.8 L (9.4-12.4) fL [place] % (Auto) 12.0 H (2-11) % Eos % (Auto) 7.7 H (0-4) % Lymph # (Auto) 0.9 L (1.2-4.9) X10*3/uL Absolute Neuts (auto) 1.6 L (2.0-8.3) x10*3/uL PT (11.1-13.3) SEC INR (0.9-1.1) Chloride 110 H (96-108) mmol/L Anion Gap (12-20) BUN (9-16) mg/dL Total Bilirubin 1.3 H (0.0-1.0) mg/dL Total Protein (6.5-8.0) g/dL Urine Protein (Neg-Trace) mg/dL Urine Blood (Negative) Ur Leukocyte Esterase (Negative) Urine RBC (0-2) /HPF Urine WBC (0-5) /HPF Short CBC 11/24/23 Range/Units 06:11 WBC 3.2 L (4.8-10.8) X10*3/uL Hgb 12.2 L (14.0-18.0) g/dl Hct 35.7 L (42.0-52.0) % Plt Count 210 (160-400) X10*3/uL BMP 11/23/23 11/24/23 14:18 06:11 Sodium 143 145 Potassium 3.7 3.3 Chloride 109 H 110 H Carbon Dioxide 28 25 BUN 23 H 15 Creatinine 1.05 1.06 Calcium 9.4 9.3 Liver Function 11/23/23 11/24/23 Range/Units 14:18 06:11 Total Bilirubin 0.9 1.3 H (0.0-1.0) mg/dL Direct Bilirubin 0.5 (0.0-0.5) mg/dL AST 18 18 (5-37) U/L ALT 7 10 (0-40) U/L Alkaline Phosphatase 80 80 (39-117) U/L Albumin 3.8 3.8 (3.5-5.0) g/dL Urine 11/23/23 Range/Units 14:58 Urine Color Yellow Urine Appearance Cloudy Urine pH 6.0 (5.0-9.0) Ur Specific [place] 1.015 (1.005-1.025) Urine Protein 30 (1+) H (Neg-Trace) mg/dL Urine Glucose (UA) Negative (Negative) mg/dL All other labs normal. Assessment and Plan (1) Abdominal pain, acute, right upper quadrant: Status: Acute (2) Cholelithiasis: Status: Acute Plan Patient is a very suboptimal surgical candidate. He is tentatively scheduled for HIDA scan. Should this be positive, patient would be more ideally suited for interventional radiologic gallbladder drainage should this be required. Plan was tentatively discussed with patient's , and with Dr. Florentino hospitalist. Procedures Date of Service Date of Service: 11/24/23
--- NOTE | 2023-11-24 15:15 | PC.NURSE ---
Pt bedside echo completed, pt being brought to [facility] before being brought to floor
[2023-11-24] MEDS: Finasteride 5 MG TABLET PO (17:52)
[2023-11-24] MEDS: 0.9 % Sodium Chloride Flush 3 ML SYRINGE IVFLUSH (17:53)
[2023-11-24 19:31] VITALS: BP 135/63; PULSE 96; RESP 16; TEMP 36.8; O2SAT 94
[2023-11-24] MEDS: RASAGILINE 1 MG 1 EACH PO (20:40)
[2023-11-24] MEDS: Tamsulosin HCL 0.4 MG CAPSULE PO (20:40)
[2023-11-24] MEDS: Melatonin 3 MG TABLET 9 MG PO (20:41)
[2023-11-24] MEDS: Potassium Chloride Packet 20 MEQ PACKET PO (20:42)
[2023-11-24] MEDS: QUEtiapine Fumarate 25 MG TABLET PO (20:43)
[2023-11-24 23:03] VITALS: BP 117/62; PULSE 64; RESP 16; TEMP 36.3; O2SAT 97
[2023-11-25] VITALS (7 sets, daily range): BP systolic 144–164; BP diastolic 65–87; PULSE 66–84; RESP 16–20; TEMP 36.2–37.6; O2SAT 95–98
[2023-11-25] MEDS: Enoxaparin Sodium 80 MG/0.8 ML SYRINGE SUBCUT ×2 (00:30→13:09)
[2023-11-25] MEDS: Lactated Ringers 1,000 ML 80 ML IVCONT (00:39)
[2023-11-25] MEDS: Piperacillin Sodium/Tazobactam 3.375 GM in 0.9 % Sodium Chloride 50 ML IV ×4 (00:40→18:29)
[2023-11-25] MEDS: Levothyroxine Sodium 125 MCG TABLET PO (06:30)
[2023-11-25] MEDS: polyethylene glycoL 3350 17 GM POWD.PACK PO (08:30)
[2023-11-25] MEDS: QUEtiapine Fumarate 25 MG TABLET 12.5 MG PO (08:30)
[2023-11-25] MEDS: Donepezil HCl 5 MG TABLET 15 MG PO (08:31)
[2023-11-25] MEDS: Metoprolol Tartrate 12.5 MG HALFTAB 37.5 MG PO ×2 (08:31→19:52)
[2023-11-25] MEDS: Carbidopa/Levodopa 25/100 TABLET 1 TAB PO ×5 (08:31→19:53)
[2023-11-25 09:16] LABS: Alanine Aminotransferase 11 U/L (0-40); Albumin Level 3.6 g/dL (3.5-5.0); Alkaline Phosphatase 72 U/L (39-117); Anion Gap 15 (12-20); Aspartate Amino Transferase 21 U/L (5-37); Bilirubin Total 1.8 mg/dL (0.0-1.0); Blood Urea Nitrogen 14 mg/dL (9-16); Calcium 9.1 mg/dL (8.4-10.2); Carbon Dioxide 25 mmol/L (22-29); Chloride 108 mmol/L (96-108); Creatinine Clr Calc Pharmacy 66.1; Estimated Glomerular Filt Rate > 60; Glucose Random 92 mg/dL (60-115); Potassium 3.5 mmol/L (3.3-5.1); Sodium 144 mmol/L (135-145); Total Protein 6.4 g/dL (6.5-8.0)
--- NOTE | 2023-11-25 10:20 | P.PNGS_ITS ---
Subjective Subjective Date of Service: 11/25/23 Interval history: Patient evaluate with his present. She actually gives collateral history as the patient has significant dementia. He had no issues or complaints of abdominal pain. Tolerated clear liquids. HIDA scan demonstrates ?biliary dyskinesia ? Physical Exam 2 Vital Signs: Vital Signs: Last Vital Signs Temp 98.0 F 11/25/23 08:00 Pulse 84 11/25/23 08:00 Resp 20 11/25/23 08:00 BP 164/82 H 11/25/23 08:00 Pulse Ox 98 11/25/23 08:00 O2 Del Method Room Air 11/25/23 08:00 O2 Flow Rate 97 11/25/23 08:00 BMI result Body Mass Index 25.7 GI: Other: Abdomen soft, corpulent, benign. No right upper quadrant tenderness. Otherwise within normal limits. Objective Data Active Medications Allopurinol (Allopurinol 300 Mg Tablet) 300 mg PO DAILY@1030 [facility] Last Admin: 11/24/23 11:51 Dose: 300 mg Documented By: LUIS ENRIQUE Calcium Carbonate (Calcium Carbonate 500 Mg Tablet) 500 mg PO DAILY@1500 [facility] Last Admin: 11/24/23 18:02 Dose: Not Given Documented By: SUZI Non-Admin Reason: hold per Carbidopa/Levodopa (Carbidopa/Levodopa 25/100 Tablet) 1 tab PO TID@0900,1500,2100 [facility] Last Admin: 11/25/23 08:31 Dose: 1 tab Documented By: BREANN Carbidopa/Levodopa (Carbidopa/Levodopa 25/100 Tablet) 1 tab PO BID@1200,1800 [facility] Last Admin: 11/24/23 17:52 Dose: 1 tab Documented By: SUZI Donepezil HCl (Donepezil Hcl 5 Mg Tablet) 15 mg PO DAILY [facility] Last Admin: 11/25/23 08:31 Dose: 15 mg Documented By: BREANN Enoxaparin Sodium (Enoxaparin Sodium 80 Mg/0.8 Ml Syringe) 80 mg SUBCUT Q12H [facility] Last Admin: 11/25/23 00:30 Dose: 80 mg Documented By: SAVITA Finasteride (Finasteride 5 Mg Tablet) 5 mg PO DAILY@1800 [facility] Last Admin: 11/24/23 17:52 Dose: 5 mg Documented By: SUZI Piperacillin Sod/Tazobactam (Sod 3.375 gm/ Sodium Chloride) 50 mls @ 100 mls/hr IV Q6H [facility] Last Infusion: 11/25/23 07:14 Dose: Infused Documented By: SAVITA Lactated Ringer's (Lr) 1,000 mls @ 80 mls/hr IVCONT .[id number] [facility] Last Admin: 11/25/23 08:24 Dose: Not Given Documented By: BREANN Non-Admin Reason: IV Running Levothyroxine Sodium (Levothyroxine Sodium 125 Mcg Tablet) 125 mcg PO DAILY@0600 [facility] Last Admin: 11/25/23 06:30 Dose: 125 mcg Documented By: SAVITA Melatonin (Melatonin 3 Mg Tablet) 9 mg PO BEDTIME [facility] Last Admin: 11/24/23 20:41 Dose: 9 mg Documented By: SAVITA Metoprolol Tartrate (Metoprolol Tartrate 12.5 Mg Halftab) 37.5 mg PO BID [facility]; Protocol Last Admin: 11/25/23 08:31 Dose: 37.5 mg Documented By: BREANN Multivitamins/Vitamin C (Multivitamin Tablet) 1 tab PO DAILY@1500 [facility] Last Admin: 11/24/23 18:03 Dose: Not Given Documented By: SUZI Non-Admin Reason: hold per Pt Own (Rasagiline 1 (Mg Tablet)) 1 mg PO DAILY@2000 [facility] Last Admin: 11/24/23 20:40 Dose: 1 mg Documented By: SAVITA Polyethylene Glycol (Polyethylene Glycol 3350 17 Gm Powd.Pack) 17 gm PO DAILY@0830 [facility] Last Admin: 11/25/23 08:30 Dose: 17 gm Documented By: BREANN Potassium Chloride (Potassium Chloride Packet 20 Meq Packet) 20 meq PO BEDTIME [facility] Last Admin: 11/24/23 20:42 Dose: 20 meq Documented By: SAVITA Quetiapine Fumarate (Quetiapine Fumarate 25 Mg Tablet) 12.5 mg PO DAILY [facility] Last Admin: 11/25/23 08:30 Dose: 12.5 mg Documented By: BREANN Quetiapine Fumarate (Quetiapine Fumarate 25 Mg Tablet) 25 mg PO BEDTIME [facility] Last Admin: 11/24/23 20:43 Dose: 25 mg Documented By: SAVITA Sodium Chloride (0.9 % Sodium Chloride Flush 3 Ml Syringe) 3 ml IVFLUSH QSHIFT [facility] Last Admin: 11/25/23 07:40 Dose: Not Given Documented By: BREANN Non-Admin Reason: IV Running Tamsulosin HCl (Tamsulosin Hcl 0.4 Mg Capsule) 0.4 mg PO DAILY@1999 [facility] Last Admin: 11/24/23 20:40 Dose: 0.4 mg Documented By: SAVITA Labs 11/24/23 06:11 11/25/23 08:22 Labs: Laboratory Results - last 24 hr 11/24/23 11/25/23 06:11 08:22 Anion Gap 15 Estim Creat Clear Calc 66.1 Estimated GFR > 60 Random Glucose 92 Calcium 9.1 Total Bilirubin 1.3 H 1.8 H Direct Bilirubin 0.5 AST 18 21 ALT 10 11 Alkaline Phosphatase 80 72 Total Protein 6.6 6.4 L Albumin 3.8 3.6 Microbiology Microbiology Results: Microbiology 11/23/23 18:05 Blood Culture - Preliminary Blood - Venous No growth after 24 hours. 11/23/23 17:49 Blood Culture - Preliminary Blood - Venous No growth after 24 hours. 11/23/23 15:25 Urine Culture - Final Urine clean catch - Urine roblero top No growth. Procedures Date of Service Date of Service: 11/25/23 Progress Note: A&P Assessment and plan (1) Cholelithiasis: Status: Acute Plan At present, no acute surgical issues. Would advance diet as tolerated, out of bed, incentive spirometry, and will follow-up p.r.n.. Time Spent With Patient Time: Total time managing care of this patient today ____ minutes. Quality Stroke Does the patient have a stroke diagnosis?: No VTE Prior VTE?: No VTE Risk Level:: Medical - moderate - high VTE Device Contraindication: N/A - Device Ordered VTE Drug Contraindication: N/A - Med Ordered
[2023-11-25] MEDS: allopurinoL 300 MG TABLET PO (10:49)
--- NOTE | 2023-11-25 11:53 | PM.PNCARD ---
Subjective Subjective Date of Service: 11/25/23 Interval history: Seen examined at bedside. Workup so far has not pointing towards cholecystitis and surgery has recommended to advanced diet. Echocardiography reserve was reviewed with the family and patient. Physical Exam Vital Signs: Last Vital Signs Temp 99.6 F 11/25/23 11:41 Pulse 66 11/25/23 11:41 Resp 16 11/25/23 11:41 BP 155/80 H 11/25/23 11:41 Pulse Ox 95 11/25/23 11:41 O2 Del Method Room Air 11/25/23 11:41 O2 Flow Rate 97 11/25/23 08:00 BMI result Body Mass Index 25.7 GENERAL APPEARANCE: Frail. Tremors due to Parkinson disease. NECK: no carotid bruit, no significant jugular venous distention. SKIN: no suspicious lesions, warm and dry. HEART: Ejection systolic murmur with preserved 2nd heart sound, irregular rate and rhythm. LUNGS: clear to auscultation bilaterally. ABDOMEN: soft, nontender. EXTREMITIES: no edema. PERIPHERAL PULSES: equal. NEUROLOGIC: No gross deficits, AAO X 3, arm tremors due to Parkinson disease. Objective Labs and Meds 11/24/23 06:11 11/25/23 08:22 Lab results: Laboratory Results - last 24 hr 11/24/23 11/25/23 06:11 08:22 Sodium 144 Potassium 3.5 Chloride 108 Carbon Dioxide 25 Anion Gap 15 BUN 14 Creatinine 0.92 Estim Creat Clear Calc 66.1 Estimated GFR > 60 Random Glucose 92 Calcium 9.1 Total Bilirubin 1.3 H 1.8 H Direct Bilirubin 0.5 AST 18 21 ALT 10 11 Alkaline Phosphatase 80 72 Total Protein 6.6 6.4 L Albumin 3.8 3.6 Imaging Radiologist's impression: Impressions Hepatobiliary Scan Nuclear Medicine 11/24/23 17:15 IMPRESSION: Findings suggestive of dyskinetic gallbladder with no emptying seen post-CCK at 30 minutes. Normal hepatic uptake. Patent CBD and cystic duct. Progress Note: A&P Assessment and plan (1) Aortic stenosis: Status: Acute (2) Cholelithiasis: Status: Acute (3) Atrial fibrillation: Status: Acute Plan 78-year-old gentleman with permanent atrial fibrillation on apixaban and metoprolol. He also has moderate aortic valve stenosis. He presented with abdominal discomfort and low blood pressure. He had some pericholecystic fluid but no obvious signs of cholecystitis otherwise. HIDA scan suggestive of dyskinetic gallbladder with no emptying seen post CCK at 30 minutes. Normal hepatic uptake. Patent CBD and cystic duct. Surgery has recommended to advance diet and no indication for surgery at this point. Blood pressure has been up and down which could be related to Parkinson disease which appears to be advanced. He also had some dysphagia as per the . Overall clinically stable. Intermediate to high risk for surgical procedures which was discussed with the patient and , also explained that currently there is no plan to do surgery. Follow-up with Dr. Avelino Barone after discharge. Thank you for allowing me to participate in the care of your patient. Please feel free to contact me if you have any questions. Time Spent With Patient Time: Total time managing care of this patient today ____ minutes. Progress Note: Quality Stroke Does the patient have a stroke diagnosis?: No Procedures Date of Service Date of Service: 11/25/23
--- NOTE | 2023-11-25 14:17 | P.PNIM_ITS ---
Subjective Subjective Date of Service: 11/25/23 Interval History: ?biliary dyskinesia Review of Systems denies any abd pain or chest pain or sob or fevers Physical Exam 2 Vital Signs: Vital Signs: Last Vital Signs Temp 99.6 F 11/25/23 12:00 Pulse 66 11/25/23 12:00 Resp 16 11/25/23 12:00 BP 155/80 H 11/25/23 12:00 Pulse Ox 95 11/25/23 12:00 O2 Del Method Room Air 11/25/23 12:00 O2 Flow Rate 97 11/25/23 08:00 BMI result Body Mass Index 25.7 Objective Data Active Medications Allopurinol (Allopurinol 300 Mg Tablet) 300 mg PO DAILY@1030 [facility] Last Admin: 11/25/23 10:49 Dose: 300 mg Documented By: BREANN Calcium Carbonate (Calcium Carbonate 500 Mg Tablet) 500 mg PO DAILY@1500 [facility] Last Admin: 11/24/23 18:02 Dose: Not Given Documented By: SUZI Non-Admin Reason: hold per Carbidopa/Levodopa (Carbidopa/Levodopa 25/100 Tablet) 1 tab PO TID@0900,1500,2100 [facility] Last Admin: 11/25/23 08:31 Dose: 1 tab Documented By: BREANN Carbidopa/Levodopa (Carbidopa/Levodopa 25/100 Tablet) 1 tab PO BID@1200,1800 [facility] Last Admin: 11/25/23 13:09 Dose: 1 tab Documented By: BREANN Donepezil HCl (Donepezil Hcl 5 Mg Tablet) 15 mg PO DAILY [facility] Last Admin: 11/25/23 08:31 Dose: 15 mg Documented By: BREANN Enoxaparin Sodium (Enoxaparin Sodium 80 Mg/0.8 Ml Syringe) 80 mg SUBCUT Q12H [facility] Last Admin: 11/25/23 13:09 Dose: 80 mg Documented By: BREANN Finasteride (Finasteride 5 Mg Tablet) 5 mg PO DAILY@1800 [facility] Last Admin: 11/24/23 17:52 Dose: 5 mg Documented By: SUZI Piperacillin Sod/Tazobactam (Sod 3.375 gm/ Sodium Chloride) 50 mls @ 100 mls/hr IV Q6H [facility] Last Infusion: 11/25/23 13:40 Dose: Infused Documented By: BREANN Levothyroxine Sodium (Levothyroxine Sodium 125 Mcg Tablet) 125 mcg PO DAILY@0600 [facility] Last Admin: 11/25/23 06:30 Dose: 125 mcg Documented By: SAVITA Melatonin (Melatonin 3 Mg Tablet) 9 mg PO BEDTIME [facility] Last Admin: 11/24/23 20:41 Dose: 9 mg Documented By: SAVITA Metoprolol Tartrate (Metoprolol Tartrate 12.5 Mg Halftab) 37.5 mg PO BID [facility]; Protocol Last Admin: 11/25/23 08:31 Dose: 37.5 mg Documented By: BREANN Multivitamins/Vitamin C (Multivitamin Tablet) 1 tab PO DAILY@1500 [facility] Last Admin: 11/24/23 18:03 Dose: Not Given Documented By: SUZI Non-Admin Reason: hold per Pt Own (Rasagiline 1 (Mg Tablet)) 1 mg PO DAILY@1999 [facility] Last Admin: 11/24/23 20:40 Dose: 1 mg Documented By: SAVITA Polyethylene Glycol (Polyethylene Glycol 3350 17 Gm Powd.Pack) 17 gm PO DAILY@0830 [facility] Last Admin: 11/25/23 08:30 Dose: 17 gm Documented By: BREANN Potassium Chloride (Potassium Chloride Packet 20 Meq Packet) 20 meq PO BEDTIME [facility] Last Admin: 11/24/23 20:42 Dose: 20 meq Documented By: SAVITA Quetiapine Fumarate (Quetiapine Fumarate 25 Mg Tablet) 12.5 mg PO DAILY [facility] Last Admin: 11/25/23 08:30 Dose: 12.5 mg Documented By: BREANN Quetiapine Fumarate (Quetiapine Fumarate 25 Mg Tablet) 25 mg PO BEDTIME [facility] Last Admin: 11/24/23 20:43 Dose: 25 mg Documented By: SAVITA Sodium Chloride (0.9 % Sodium Chloride Flush 3 Ml Syringe) 3 ml IVFLUSH [facility] Last Admin: 11/25/23 07:40 Dose: Not Given Documented By: BREANN Non-Admin Reason: IV Running Tamsulosin HCl (Tamsulosin Hcl 0.4 Mg Capsule) 0.4 mg PO DAILY@1999 [facility] Last Admin: 11/24/23 20:40 Dose: 0.4 mg Documented By: SAVITA Labs 11/24/23 06:11 11/25/23 08:22 Labs: Laboratory Results - last 24 hr 11/25/23 08:22 Anion Gap 15 Estim Creat Clear Calc 66.1 Estimated GFR > 60 Random Glucose 92 Calcium 9.1 Total Bilirubin 1.8 H AST 21 ALT 11 Alkaline Phosphatase 72 Total Protein 6.4 L Albumin 3.6 Microbiology Microbiology Results: Microbiology 11/23/23 18:05 Blood Culture - Preliminary Blood - Venous No growth after 24 hours. 11/23/23 17:49 Blood Culture - Preliminary Blood - Venous No growth after 24 hours. 11/23/23 15:25 Urine Culture - Final Urine clean catch - Urine roblero top No growth. Assessment and Plan (1) Biliary dyskinesia: Status: Acute Plan 78 y/o M with pmhx atrial fibrillation on Eliquis, arthritis, hyperlipidemia, BPH, pre diabetes, anxiety, ODILIA on CPAP came for abdominal pain and low blood pressure. Possible bilary diskinesia no pain mild elevated bilirubin ,other lfts normal ct abd in [facility] shows cholelithiasis and mild bile ductal dilation blood cultures pending hida scan:Findings suggestive of dyskinetic gallbladder with no emptying seen post-CCK at 30 minutes.Normal hepatic uptake. surgery reviewed hida scan - possible biliary dyskinesia IV Zosyn(started on 11/23/23) until blood cultures negative ,advanced diet Gieval pending AFib, hx of pulm embolism: Rate controlled Monitor on tele Blood pressure stable continue metoprolol,lovenox. Borderline blood pressure: Seems to be improved. Monitor blood pressure closely BPH: Continue home medication but medical reconciliation is pending ODILIA: Continue CPAP( says he does not use it) Hyperlipidemia/anxiety: Home medication continue. generlaised weak: need pT eval. DVT prophylaxis with SCD. In in my clinical judgment ongoing hospitlisation need : due to possible Possible bilary diskinesia -seems improving , bp monitering,Gi consultation. Quality Stroke Does the patient have a stroke diagnosis?: No VTE Prior VTE?: No VTE Risk Level:: Medical - moderate - high VTE Device Contraindication: N/A - Device Ordered VTE Drug Contraindication: N/A - Med Ordered
[2023-11-25] MEDS: Multivitamin TABLET 1 TAB PO (15:40)
[2023-11-25] MEDS: 0.9 % Sodium Chloride Flush 3 ML SYRINGE IVFLUSH (15:40)
--- NOTE | 2023-11-25 16:28 | MHC.CM.PN ---
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
[2023-11-25] MEDS: Finasteride 5 MG TABLET PO (18:29)
[2023-11-25] MEDS: Melatonin 3 MG TABLET 9 MG PO (19:52)
[2023-11-25] MEDS: RASAGILINE 1 MG 1 EACH PO (19:52)
[2023-11-25] MEDS: QUEtiapine Fumarate 25 MG TABLET PO (19:53)
[2023-11-25] MEDS: Tamsulosin HCL 0.4 MG CAPSULE PO (19:53)
[2023-11-25] MEDS: Potassium Chloride Packet 20 MEQ PACKET PO (19:53)
[2023-11-26] VITALS (7 sets, daily range): BP systolic 126–139; BP diastolic 65–97; PULSE 65–92; RESP 19–22; TEMP 36.2–37.1; O2SAT 95–99
[2023-11-26] MEDS: Enoxaparin Sodium 80 MG/0.8 ML SYRINGE SUBCUT (00:12)
[2023-11-26] MEDS: 0.9 % Sodium Chloride Flush 3 ML SYRINGE IVFLUSH ×3 (00:12→16:44)
[2023-11-26] MEDS: Piperacillin Sodium/Tazobactam 3.375 GM in 0.9 % Sodium Chloride 50 ML IV ×2 (01:24→06:01)
[2023-11-26] MEDS: Acetaminophen 325 MG TABLET 975 MG PO (05:58)
[2023-11-26] MEDS: Levothyroxine Sodium 125 MCG TABLET PO (05:58)
[2023-11-26 08:11] LABS: Alanine Aminotransferase 7 U/L (0-40); Albumin Level 3.6 g/dL (3.5-5.0); Alkaline Phosphatase 76 U/L (39-117); Anion Gap 14 (12-20); Aspartate Amino Transferase 18 U/L (5-37); Bilirubin Total 1.5 mg/dL (0.0-1.0); Blood Urea Nitrogen 13 mg/dL (9-16); Calcium 9.1 mg/dL (8.4-10.2); Carbon Dioxide 25 mmol/L (22-29); Chloride 107 mmol/L (96-108); Creatinine Clr Calc Pharmacy 64.7; Estimated Glomerular Filt Rate > 60; Glucose Random 106 mg/dL (60-115); Potassium 3.3 mmol/L (3.3-5.1); Sodium 143 mmol/L (135-145); Total Protein 6.3 g/dL (6.5-8.0)
[2023-11-26] MEDS: Carbidopa/Levodopa 25/100 TABLET 1 TAB PO ×5 (08:45→16:52)
[2023-11-26] MEDS: allopurinoL 300 MG TABLET PO (08:45)
[2023-11-26] MEDS: Donepezil HCl 5 MG TABLET 15 MG PO (08:45)
[2023-11-26] MEDS: polyethylene glycoL 3350 17 GM POWD.PACK PO (08:46)
[2023-11-26] MEDS: Metoprolol Tartrate 12.5 MG HALFTAB 37.5 MG PO ×2 (08:46→20:13)
[2023-11-26] MEDS: QUEtiapine Fumarate 25 MG TABLET 12.5 MG PO (08:46)
--- NOTE | 2023-11-26 11:00 | MHC.CM.PN ---
Per ROUNDS discussion, Patient is waiting on PT eval to assist with disposition, GI & Surgery. CM will follow.
--- NOTE | 2023-11-26 12:41 | P.DS_ITS ---
DS: Providers Provider Date of Service: 11/26/23 Date of admission: 11/23/23 18:42 Date of discharge: 11/26/23 Primary care physician: Alex Mitchell MD Consults: 11/23/23 19:12 Consult to Gastroenterology Routine Consulting Provider: [facility] Reason for consultation: acute cholecytitis Has provider been notified: No Consult to General Surgery Routine Consulting Provider: [facility] General Surgeons Reason for consultation: acute cholecystitis Has provider been notified: No 11/24/23 11:13 Consult to Cardiology Routine Consulting Provider: [facility] Cardiovascular Services Reason for consultation: risk startification for cholecytectomy Has provider been notified: No Attending physician on discharge: Lawrence Florentino Discharging clinician: Lawrence Florentino DS: Diagnosis Discharge Diagnosis (1) Biliary dyskinesia: Status: Acute DS: Summary Hospital Course Hospital Course: 78 y/o M with pmhx pulm embolism, atrial fibrillation on Eliquis, arthritis, hyperlipidemia, BPH, pre diabetes, anxiety, ODILIA on CPAP came for abdominal pain and low blood pressure. The patient has dementia and unable to provide much hx. (please see h&p note for further information). hx was taken from ed physician and patient . The patient may have history of gallbladder disease and was complaining of abdominal pain which may have been relieved after the patient had a bowel movement. said that abdominal pain started after eating ice cream and food. called paramedics-as per are his blood pressure was on borderline to low, he received his metoprolol 1-2 hours prior to getting this blood pressure checked by the paramedics- subsequently received normal saline 250 cc IV bolus and the patient's blood pressure on arrival was 110/50. When we saw the patient and even the ED physician report: Patient was not having any abdominal pain or any low blood pressure on arrival. patient was seen recently [facility] of her right upper quadrant pain,cta bd was done -please see below. labs ,imaging reviewed: Chronic leukopenia, BMP seems fine except BUN is 23 and creatinine is 1.05. Lactic acid 1.2, no fever: Abdominal ultrasound:ILimited exam as described. Cholelithiasis with gallbladder wall thickening and possible areas of gallbladder wall edema versus pericholecystic fluid. The common duct is not appear dilated. Cholecystitis cannot be excluded. Hopsital course: Patient was admitted to the hospital because of question of abdominal pain initially, as well as softer blood pressure: Ever since hospitalized did not had any abdominal pain, total bilirubin seems to be improving, patient also had further workup with abdominal ultrasound and HIDA scan: Patient has c holelithiasis, and possible biliary dyskinesia: Seen by surgery and GI-patient is asymptomatic, bilirubin improving, no acute intervention recommended. Borderline BP likely due to dehydration: Improved with hydration, p.o. intake improving. Encouraged for hydration outpatient. Patient will be going home with services, patient's declined for PT she said the she does not want her to go to rehab. plan: Follow-up LFT out patiently. Follow-up with PCP and further management outpatient as per PCP. Assessment and plan coordination time spent 50 minute, above management discussed with the patient and his in detail length they both understand and in agreement with the plan. Time Attestation Discharge coordination time: Greater than 30 minutes Quality: Safe Use of Opioids Does Pt have an Active Cancer Diagnosis on the Problem List?: No Quality: Stroke Does the patient have a stroke diagnosis?: No Physical Exam Vital Signs: Vital Signs: Last Vital Signs Temp 97.9 F 11/26/23 12:00 Pulse 92 11/26/23 12:00 Resp 19 11/26/23 12:00 BP 132/82 11/26/23 12:00 Pulse Ox 96 11/26/23 12:00 O2 Del Method Room Air 11/26/23 12:00 O2 Flow Rate 97 11/25/23 08:00 BMI result Body Mass Index 25.7 Appearance: Alert.? Oriented X3.? not in distress.? cvs: rrr, [id number] . res: clear to auscultation ,no rhonchii or wheezing abd: no rebound or guarding ,nt, bs present. ext pulses present , no cyanosis . neuro: axo3 ,at baseline DS: Data Data Completed and Pending Labs on day of discharge: Laboratory Results - last 24 hr 11/23/23 11/26/23 14:18 06:52 Smear Path Review SEE NOTE Hold Purple Top SEE NOTE Sodium 143 Potassium 3.3 Chloride 107 Carbon Dioxide 25 Anion Gap 14 BUN 13 Creatinine 0.94 Estim Creat Clear Calc 64.7 Estimated GFR > 60 Random Glucose 106 Calcium 9.1 Total Bilirubin 1.5 H AST 18 ALT 7 Alkaline Phosphatase 76 Total Protein 6.3 L Albumin 3.6 Preliminary micro results at discharge 11/23/23 18:05 Blood Culture - Preliminary Blood - Venous No growth after 48 hours. 11/23/23 17:49 Blood Culture - Preliminary Blood - Venous No growth after 48 hours. Imaging Chest x-ray: Radiologist's impression: ITS Impressions Chest X-Ray 11/23/23 14:35 IMPRESSION: No evidence of pneumonia. Abdomen Ultrasound 11/23/23 15:42 IMPRESSION: Limited exam as described. Cholelithiasis with gallbladder wall thickening and possible areas of gallbladder wall edema versus pericholecystic fluid. The common duct is not appear dilated. Cholecystitis cannot be excluded. If further evaluation is warranted recommend HIDA scan Hepatobiliary Scan Nuclear Medicine 11/24/23 17:15 IMPRESSION: Findings suggestive of dyskinetic gallbladder with no emptying seen post-CCK at 30 minutes. Normal hepatic uptake. Patent CBD and cystic duct. Discharge Plan Discharge Anticipated Discharge Date/Time: 11/26/23 12:33 Patient Disposition: Home, Self-Care Discharge Diagnosis: Possible Biliary dyskinesia Referrals: Alex Mitchell MD [Primary Care Provider] - 1 Week Discharge Medications: Continued Men's One Daily Tablet 1 tab PO DAILY@1500 carbidopa-levodopa 25-100 mg tablet 1 tab PO BID@1200,1800 calcium citrate 250 mg calcium Tablet 250 mg PO DAILY@1500 melatonin 10 mg Tablet 10 mg PO BEDTIME quetiapine 25 mg tablet 25 mg PO BEDTIME donepezil 10 mg tablet 15 mg PO DAILY carbidopa-levodopa 25-100 mg tablet 1 tab PO TID@0900,1500,2100 rasagiline 1 mg tablet 1 mg PO DAILY@2000 potassium chloride 20 mEq/15 mL Liquid 20 meq PO BEDTIME Align 4 mg Capsule 4 mg PO BEDTIME quetiapine 25 mg Tablet 12.5 mg PO DAILY allopurinol 300 mg tablet 300 mg PO DAILY@1030 finasteride 5 mg tablet 5 mg PO DAILY@1800 levothyroxine 125 mcg tablet 125 mcg PO DAILY@0600 metoprolol tartrate 25 mg tablet 37.5 mg PO BID tamsulosin 0.4 mg capsule 0.4 mg PO DAILY@2000 Eliquis 5 mg tablet 5 mg PO BID B-complex with vitamin C Capsule 1 cap PO DAILY@1800 polyethylene glycol 3350 [Miralax] 17 gram/dose powder 17 g PO DAILY@0830 Diet: Advance to usual diet Activity on Discharge: As tolerated Stand Alone Forms: Patient Portal Discharge page Care Plan Goals: Patient was admitted to the hospital because of question of abdominal pain initially, as well as softer blood pressure: Ever since hospitalized did not had any abdominal pain, total bilirubin seems to be improving, patient also had further workup with abdominal ultrasound and HIDA scan: Patient has cholelithiasis, and possible biliary dyskinesia: Seen by surgery and GI-patient is asymptomatic, bilirubin improving, no acute intervention recommended. Health Concerns: As above. Plan of Treatment: As above. Assessment: As above.
[2023-11-26] MEDS: Multivitamin TABLET 1 TAB PO (14:15)
--- NOTE | 2023-11-26 16:24 | MHC.CM.PN ---
Per pt is medically cleared for D/C home with new VNA. Referrals sent in [facility] and pt has been accepted by [facility] the [facility]. This CM met with pts to discuss and she asked if he can go home tomorrow am instead of this evening so she can set everything up for him. stated we can plan for tomorrow D/C home. Pts and VNA updated. Pts plans to transport him home.
--- NOTE | 2023-11-26 16:30 | HO.PM.IMPN ---
Subjective Subjective Date of Service: 11/26/23 Interval History: Biliary dyskinesia Review of Systems Patient seems to be near his baseline Physical Exam Vital Signs: Vital Signs: Last Vital Signs Temp 97.8 F 11/26/23 15:19 Pulse 75 11/26/23 15:19 Resp 22 H 11/26/23 15:19 BP 126/65 11/26/23 15:19 Pulse Ox 96 11/26/23 15:19 O2 Del Method Room Air 11/26/23 15:19 O2 Flow Rate 97 11/25/23 08:00 BMI result Body Mass Index 25.7 Appearance: Alert.? Oriented .? not in distress.? cvs: rrr, [id number] . res: clear to auscultation ,no rhonchii or wheezing abd: no rebound or guarding ,nt, bs present. ext pulses present , no cyanosis . neuro: axo3 ,at baseline Objective Data Active Medications Acetaminophen (Acetaminophen 325 Mg Tablet) 975 mg PO Q6H PRN PRN Reason: Pain, Mild (Pain Scale 1-3) Last Admin: 11/26/23 05:58 Dose: 975 mg Documented By: MARIO Allopurinol (Allopurinol 300 Mg Tablet) 300 mg PO DAILY@1030 [facility] Last Admin: 11/26/23 08:45 Dose: 300 mg Documented By: JOANNE Calcium Carbonate (Calcium Carbonate 500 Mg Tablet) 500 mg PO DAILY@1500 [facility] Last Admin: 11/26/23 14:15 Dose: 500 mg Documented By: JOANNE Carbidopa/Levodopa (Carbidopa/Levodopa 25/100 Tablet) 1 tab PO TID@0900,1500,2100 [facility] Last Admin: 11/26/23 14:15 Dose: 1 tab Documented By: JOANNE Carbidopa/Levodopa (Carbidopa/Levodopa 25/100 Tablet) 1 tab PO BID@1200,1800 [facility] Last Admin: 11/26/23 11:19 Dose: 1 tab Documented By: JOANNE Donepezil HCl (Donepezil Hcl 5 Mg Tablet) 15 mg PO DAILY [facility] Last Admin: 11/26/23 08:45 Dose: 15 mg Documented By: JOANNE Enoxaparin Sodium (Enoxaparin Sodium 80 Mg/0.8 Ml Syringe) 80 mg SUBCUT Q12H [facility] Last Admin: 11/26/23 11:19 Dose: Not Given Documented By: JOANNE Non-Admin Reason: Med Not Available Finasteride (Finasteride 5 Mg Tablet) 5 mg PO DAILY@1800 [facility] Last Admin: 11/25/23 18:29 Dose: 5 mg Documented By: BREANN Levothyroxine Sodium (Levothyroxine Sodium 125 Mcg Tablet) 125 mcg PO DAILY@0600 [facility] Last Admin: 11/26/23 05:58 Dose: 125 mcg Documented By: BELGICATEKMichael Melatonin (Melatonin 3 Mg Tablet) 9 mg PO BEDTIME [facility] Last Admin: 11/25/23 19:52 Dose: 9 mg Documented By: ROSA Metoprolol Tartrate (Metoprolol Tartrate 12.5 Mg Halftab) 37.5 mg PO BID [facility]; Protocol Last Admin: 11/26/23 08:46 Dose: 37.5 mg Documented By: JOANNE Multivitamins/Vitamin C (Multivitamin Tablet) 1 tab PO DAILY@1500 [facility] Last Admin: 11/26/23 14:15 Dose: 1 tab Documented By: JOANNE Pt Own (Rasagiline 1 (Mg Tablet)) 1 mg PO DAILY@2000 [facility] Last Admin: 11/25/23 19:52 Dose: 1 mg Documented By: ROSA Omeprazole (Omeprazole 20 Mg Capsule.) 20 mg PO DAILY@0630 [facility] Polyethylene Glycol (Polyethylene Glycol 3350 17 Gm Powd.Pack) 17 gm PO DAILY@0830 [facility] Last Admin: 11/26/23 08:46 Dose: 17 gm Documented By: JOANNE Potassium Chloride (Potassium Chloride Packet 20 Meq Packet) 20 meq PO BEDTIME [facility] Last Admin: 11/25/23 19:53 Dose: 20 meq Documented By: ROSA Quetiapine Fumarate (Quetiapine Fumarate 25 Mg Tablet) 12.5 mg PO DAILY [facility] Last Admin: 11/26/23 08:46 Dose: 12.5 mg Documented By: JOANNE Quetiapine Fumarate (Quetiapine Fumarate 25 Mg Tablet) 25 mg PO BEDTIME [facility] Last Admin: 11/25/23 19:53 Dose: 25 mg Documented By: ROSA Sodium Chloride (0.9 % Sodium Chloride Flush 3 Ml Syringe) 3 ml IVFLUSH QSHIFT [facility] Last Admin: 11/26/23 08:48 Dose: 3 ml Documented By: JOANNE Tamsulosin HCl (Tamsulosin Hcl 0.4 Mg Capsule) 0.4 mg PO DAILY@1999 [facility] Last Admin: 11/25/23 19:53 Dose: 0.4 mg Documented By: ROSA Labs 11/24/23 06:11 11/26/23 06:52 Labs: Laboratory Results - last 24 hr 11/23/23 11/26/23 14:18 06:52 Smear Path Review SEE NOTE Hold Purple Top SEE NOTE Anion Gap 14 Estim Creat Clear Calc 64.7 Estimated GFR > 60 Random Glucose 106 Calcium 9.1 Total Bilirubin 1.5 H AST 18 ALT 7 Alkaline Phosphatase 76 Total Protein 6.3 L Albumin 3.6 Microbiology Microbiology Results: Microbiology 11/23/23 18:05 Blood Culture - Preliminary Blood - Venous No growth after 48 hours. 11/23/23 17:49 Blood Culture - Preliminary Blood - Venous No growth after 48 hours. Assessment and Plan (1) Biliary dyskinesia: Status: Acute Plan 78 y/o M with pmhx atrial fibrillation on Eliquis, arthritis, hyperlipidemia, BPH, pre diabetes, anxiety, ODILIA on CPAP came for abdominal pain and low blood pressure. Possible bilary diskinesia no pain mild elevated bilirubin ,other lfts normal ct abd in [facility] shows cholelithiasis and mild bile ductal dilation blood cultures pending hida scan:Findings suggestive of dyskinetic gallbladder with no emptying seen post-CCK at 30 minutes.Normal hepatic uptake. surgery reviewed hida scan - possible biliary dyskinesia IV Zosyn(started on 11/23/23) until blood cultures negative ,advanced diet Gi follow up -added omeprazole. AFib, hx of pulm embolism: Rate controlled Monitor on tele Blood pressure stable continue metoprolol,lovenox. Borderline blood pressure: Seems to be improved. Monitor blood pressure closely BPH: Continue home medication but medical reconciliation is pending ODILIA: Continue CPAP( says he does not use it) Hyperlipidemia/anxiety: Home medication continue. generlaised weak: need pT eval. DVT prophylaxis with SCD. In in my clinical judgment ongoing hospitlisation need : due to possible Possible bilary diskinesia -seems improving , bp monitering,Gi followup, also need Pt eval. Quality Stroke Does the patient have a stroke diagnosis?: No VTE Prior VTE?: No VTE Risk Level:: Medical - moderate - high VTE Device Contraindication: N/A - Device Ordered VTE Drug Contraindication: N/A - Med Ordered
[2023-11-26] MEDS: Finasteride 5 MG TABLET PO (16:44)
[2023-11-26] MEDS: Omeprazole 20 MG CAPSULE.DR PO (16:44)
[2023-11-26] MEDS: Potassium Chloride Packet 20 MEQ PACKET PO (20:11)
[2023-11-26] MEDS: RASAGILINE 1 MG 1 EACH PO (20:12)
[2023-11-26] MEDS: QUEtiapine Fumarate 25 MG TABLET PO (20:15)
[2023-11-26] MEDS: Melatonin 3 MG TABLET 9 MG PO (20:15)
[2023-11-26] MEDS: Tamsulosin HCL 0.4 MG CAPSULE PO (20:16)
[2023-11-27] MEDS: Enoxaparin Sodium 80 MG/0.8 ML SYRINGE SUBCUT ×3 (02:00→23:37)
[2023-11-27] MEDS: 0.9 % Sodium Chloride Flush 3 ML SYRINGE IVFLUSH ×4 (02:00→23:38)
[2023-11-27 03:11] VITALS: BP 166/71; PULSE 59; RESP 20; TEMP 36.1; O2SAT 98
[2023-11-27] MEDS: Levothyroxine Sodium 125 MCG TABLET PO (06:10)
[2023-11-27 07:06] VITALS: BP 110/64; PULSE 64; RESP 18; TEMP 37.1; O2SAT 96
[2023-11-27] MEDS: Donepezil HCl 5 MG TABLET 15 MG PO (09:49)
[2023-11-27] MEDS: Carbidopa/Levodopa 25/100 TABLET 1 TAB PO ×5 (09:49→20:58)
[2023-11-27] MEDS: allopurinoL 300 MG TABLET PO (09:50)
[2023-11-27] MEDS: Metoprolol Tartrate 12.5 MG HALFTAB 37.5 MG PO ×2 (09:50→20:58)
[2023-11-27] MEDS: QUEtiapine Fumarate 25 MG TABLET 12.5 MG PO (09:50)
[2023-11-27] MEDS: polyethylene glycoL 3350 17 GM POWD.PACK PO (09:51)
--- NOTE | 2023-11-27 10:25 | MHC.CM.PN ---
Per ROUNDS discussion, Patient will be medically cleared for dc to home today, with services. [facility] has accepted Patient and they have been made aware of today's dc. Last IMM addressed on 11/25/2023.
[2023-11-27 11:30] VITALS: BP 111/56; PULSE 78; RESP 17; TEMP 36.5; O2SAT 96
[2023-11-27 12:04] LABS: Anion Gap 8 (12-20); Blood Urea Nitrogen 18 mg/dL (9-16); Calcium 9.3 mg/dL (8.4-10.2); Carbon Dioxide 31 mmol/L (22-29); Chloride 108 mmol/L (96-108); Creatinine Clr Calc Pharmacy 54.8; Estimated Glomerular Filt Rate > 60; Glucose Random 131 mg/dL (60-115); Potassium 3.5 mmol/L (3.3-5.1); Sodium 143 mmol/L (135-145)
--- NOTE | 2023-11-27 12:17 | MHC.CM.PN ---
CM met with Patient and his at bedside to discuss dc planning.PT is now recommending STR unless additional support/services are available to Patient's , as the primary Caregiver. Patient's is actively looking for privately hired assistance and CM provided Patient with additional resources, including [facility]. Meanwhile, Patient/ are agreeable to the initiation of a [facility] SNF search, should it take a while to secure additional home services. [facility] has accepted Patient also. CM will follow.
--- NOTE | 2023-11-27 12:42 | HO.PM.IMPN ---
Subjective Subjective Date of Service: 11/27/23 Interval History: diarrhae Review of Systems seems improving denies any other new symptoms or fever or abd pain Physical Exam Vital Signs: Vital Signs: Last Vital Signs Temp 97.7 F 11/27/23 11:30 Pulse 78 11/27/23 11:30 Resp 17 11/27/23 11:30 BP 111/56 L 11/27/23 11:30 Pulse Ox 96 11/27/23 11:30 O2 Del Method Room Air 11/27/23 11:30 O2 Flow Rate 97 11/25/23 08:00 BMI result Body Mass Index 25.7 Appearance: Alert.? Oriented .? not in distress.? cvs: rrr, [id number] . res: clear to auscultation ,no rhonchii or wheezing abd: no rebound or guarding ,nt, bs present. ext pulses present , no cyanosis . neuro: axo3 ,at baseline Objective Data Active Medications Acetaminophen (Acetaminophen 325 Mg Tablet) 975 mg PO Q6H PRN PRN Reason: Pain, Mild (Pain Scale 1-3) Last Admin: 11/26/23 05:58 Dose: 975 mg Documented By: MARIO Allopurinol (Allopurinol 300 Mg Tablet) 300 mg PO DAILY@1030 [facility] Last Admin: 11/27/23 09:50 Dose: 300 mg Documented By: JOANNE Calcium Carbonate (Calcium Carbonate 500 Mg Tablet) 500 mg PO DAILY@1500 [facility] Last Admin: 11/26/23 14:15 Dose: 500 mg Documented By: JOANNE Carbidopa/Levodopa (Carbidopa/Levodopa 25/100 Tablet) 1 tab PO TID@0900,1500,2100 [facility] Last Admin: 11/27/23 09:49 Dose: 1 tab Documented By: JOANNE Carbidopa/Levodopa (Carbidopa/Levodopa 25/100 Tablet) 1 tab PO BID@1200,1800 [facility] Last Admin: 11/27/23 11:46 Dose: 1 tab Documented By: JOANNE Donepezil HCl (Donepezil Hcl 5 Mg Tablet) 15 mg PO DAILY [facility] Last Admin: 11/27/23 09:49 Dose: 15 mg Documented By: JOANNE Enoxaparin Sodium (Enoxaparin Sodium 80 Mg/0.8 Ml Syringe) 80 mg SUBCUT Q12H [facility] Last Admin: 11/27/23 11:46 Dose: 80 mg Documented By: JOANNE Finasteride (Finasteride 5 Mg Tablet) 5 mg PO DAILY@1800 [facility] Last Admin: 11/26/23 16:44 Dose: 5 mg Documented By: JOANNE Levothyroxine Sodium (Levothyroxine Sodium 125 Mcg Tablet) 125 mcg PO DAILY@0600 [facility] Last Admin: 11/27/23 06:10 Dose: 125 mcg Documented By: MARGO Melatonin (Melatonin 3 Mg Tablet) 9 mg PO BEDTIME [facility] Last Admin: 11/26/23 20:15 Dose: 9 mg Documented By: SHANNAN Metoprolol Tartrate (Metoprolol Tartrate 12.5 Mg Halftab) 37.5 mg PO BID [facility]; Protocol Last Admin: 11/27/23 09:50 Dose: 37.5 mg Documented By: JOANNE Multivitamins/Vitamin C (Multivitamin Tablet) 1 tab PO DAILY@1500 [facility] Last Admin: 11/26/23 14:15 Dose: 1 tab Documented By: JOANNE Pt Own (Rasagiline 1 (Mg Tablet)) 1 mg PO DAILY@2000 [facility] Last Admin: 11/26/23 20:12 Dose: 1 mg Documented By: SHANNAN Omeprazole (Omeprazole 20 Mg Capsule.Dr) 20 mg PO DAILY@0630 [facility] Last Admin: 11/27/23 06:08 Dose: Not Given Documented By: MARGO Non-Admin Reason: pt refused. Polyethylene Glycol (Polyethylene Glycol 3350 17 Gm Powd.Pack) 17 gm PO DAILY@0830 [facility] Last Admin: 11/27/23 09:51 Dose: 17 gm Documented By: JONANE Potassium Chloride (Potassium Chloride Packet 20 Meq Packet) 20 meq PO BEDTIME [facility] Last Admin: 11/26/23 20:11 Dose: 20 meq Documented By: SHANNAN Quetiapine Fumarate (Quetiapine Fumarate 25 Mg Tablet) 12.5 mg PO DAILY [facility] Last Admin: 11/27/23 09:50 Dose: 12.5 mg Documented By: JOANNE Quetiapine Fumarate (Quetiapine Fumarate 25 Mg Tablet) 25 mg PO BEDTIME [facility] Last Admin: 11/26/23 20:15 Dose: 25 mg Documented By: SHANNAN Sodium Chloride (0.9 % Sodium Chloride Flush 3 Ml Syringe) 3 ml IVFLUSH QSHIFT [facility] Last Admin: 11/27/23 09:51 Dose: 3 ml Documented By: JOANNE Tamsulosin HCl (Tamsulosin Hcl 0.4 Mg Capsule) 0.4 mg PO DAILY@1999 [facility] Last Admin: 11/26/23 20:16 Dose: 0.4 mg Documented By: SHANNAN Labs 11/24/23 06:11 11/27/23 11:42 Labs: Laboratory Results - last 24 hr 11/27/23 11:42 Anion Gap 8 L Estim Creat Clear Calc 54.8 Estimated GFR > 60 Random Glucose 131 H Calcium 9.3 Assessment and Plan (1) Biliary dyskinesia: Status: Acute Plan 78 y/o M with pmhx atrial fibrillation on Eliquis, arthritis, hyperlipidemia, BPH, pre diabetes, anxiety, ODILIA on CPAP came for abdominal pain and low blood pressure. Possible bilary diskinesia no pain mild elevated bilirubin ,other lfts normal ct abd in [facility] shows cholelithiasis and mild bile ductal dilation blood cultures pending hida scan:Findings suggestive of dyskinetic gallbladder with no emptying seen post-CCK at 30 minutes.Normal hepatic uptake. surgery reviewed hida scan - possible biliary dyskinesia off Zosyn(started on 11/23/23) until blood cultures negative ,advanced diet Gi follow up -added omeprazole. Diarrhae: no abd pain or fever added gip panel if neg doesnot want to use loperamide. prerenal azotemia: added ivf Lr@ 80 ml/hr moniter bmp AFib, hx of pulm embolism: Rate controlled Monitor on tele Blood pressure stable continue metoprolol,lovenox. Borderline blood pressure: Seems to be improved. Monitor blood pressure closely BPH: Continue home medication but medical reconciliation is pending ODILIA: Continue CPAP( says he does not use it) Hyperlipidemia/anxiety: Home medication continue. generlaised weak: pT eval-rehab placement . DVT prophylaxis with SCD. In in my clinical judgment ongoing hospitlisation need : due to possible Possible bilary diskinesia -seems improving, diarrhae -workup pending , prerenal azotemia need IV fluids, bp monitering,Gi followup, also need Pt eval.rehab placement Quality Stroke Does the patient have a stroke diagnosis?: No VTE Prior VTE?: No VTE Risk Level:: Medical - moderate - high VTE Device Contraindication: N/A - Device Ordered VTE Drug Contraindication: N/A - Med Ordered
[2023-11-27] MEDS: Lactated Ringers 1,000 ML 80 ML IVCONT ×2 (13:14→23:37)
--- NOTE | 2023-11-27 13:53 | MHC.CM.PN ---
Patient has been accepted by [facility]; Patient and his are agreeable and [facility] is initiating [facility] auth. CM will follow.
[2023-11-27] MEDS: Multivitamin TABLET 1 TAB PO (15:32)
[2023-11-27 15:57] VITALS: BP 133/71; PULSE 75; RESP 19; TEMP 36.6; O2SAT 97
--- NOTE | 2023-11-27 17:53 | PC.NURSE ---
Ambulated on the hallway 75 feet with walker , RN and FINISHED GOODS STOCK CLERK assisted for safety . Pt ambulated with low shuffling gait , cooperative during ambulation , sitting on the recliner now
[2023-11-27] MEDS: Tamsulosin HCL 0.4 MG CAPSULE PO (18:37)
[2023-11-27] MEDS: Finasteride 5 MG TABLET PO (18:37)
[2023-11-27 19:36] VITALS: BP 111/59; PULSE 68; RESP 20; TEMP 36.4; O2SAT 98
[2023-11-27] MEDS: RASAGILINE 1 MG 1 EACH PO (19:39)
[2023-11-27] MEDS: QUEtiapine Fumarate 25 MG TABLET PO (20:58)
[2023-11-27] MEDS: Melatonin 3 MG TABLET 9 MG PO (20:58)
[2023-11-27] MEDS: Potassium Chloride Packet 20 MEQ PACKET PO (20:59)
[2023-11-27 23:55] VITALS: BP 115/75; PULSE 69; RESP 16; TEMP 36.3; O2SAT 96
[2023-11-28 03:16] VITALS: BP 156/75; PULSE 66; RESP 15; TEMP 36.3; O2SAT 97
[2023-11-28 07:26] VITALS: BP 143/96; PULSE 76; RESP 16; TEMP 36.9; O2SAT 92
[2023-11-28] MEDS: polyethylene glycoL 3350 17 GM POWD.PACK PO (08:01)
[2023-11-28] MEDS: Levothyroxine Sodium 125 MCG TABLET PO (08:01)
[2023-11-28] MEDS: 0.9 % Sodium Chloride Flush 3 ML SYRINGE IVFLUSH (08:01)
[2023-11-28] MEDS: Carbidopa/Levodopa 25/100 TABLET 1 TAB PO ×3 (08:01→11:52)
[2023-11-28] MEDS: Metoprolol Tartrate 12.5 MG HALFTAB 37.5 MG PO (08:02)
[2023-11-28] MEDS: Donepezil HCl 5 MG TABLET 15 MG PO (08:02)
[2023-11-28] MEDS: QUEtiapine Fumarate 25 MG TABLET 12.5 MG PO (08:03)
[2023-11-28 10:03] LABS: Hematocrit 32.7 % (42.0-52.0); Hemoglobin 11.1 g/dl (14.0-18.0); Mean Corpuscular HGB Conc 33.9 g/dl (31.0-36.0); Mean Corpuscular Hemoglobin 33.7 pg (27.0-33.0); Mean Corpuscular Volume 99.4 fL (80.0-98.0); Mean Platelet Volume 9.1 fL (9.4-12.4); Platelet Count 177 X10*3/uL (160-400); Red Blood Count 3.29 X10*6/uL (4.60-5.80); White Blood Count 2.7 X10*3/uL (4.8-10.8)
[2023-11-28 10:22] LABS: Alanine Aminotransferase 7 U/L (0-40); Albumin Level 3.3 g/dL (3.5-5.0); Alkaline Phosphatase 64 U/L (39-117); Anion Gap 10 (12-20); Aspartate Amino Transferase 43 U/L (5-37); Bilirubin Total 0.7 mg/dL (0.0-1.0); Blood Urea Nitrogen 18 mg/dL (9-16); Calcium 8.7 mg/dL (8.4-10.2); Carbon Dioxide 27 mmol/L (22-29); Chloride 110 mmol/L (96-108); Creatinine Clr Calc Pharmacy 72.4; Estimated Glomerular Filt Rate > 60; Glucose Random 98 mg/dL (60-115); Potassium 3.1 mmol/L (3.3-5.1); Sodium 144 mmol/L (135-145); Total Protein 5.5 g/dL (6.5-8.0)
[2023-11-28 11:22] VITALS: BP 101/56; PULSE 71; RESP 18; TEMP 36.4; O2SAT 98
--- NOTE | 2023-11-28 11:27 | MHC.CM.PN ---
[facility] has received [facility] auth (Not VA connected, per SNF)and CM spoke with Patient and his multiple times this morning regarding dc planning. /HCP/Teresita was under the impression from our conversations yesterday that CM was working with the [facility] to set up [facility] [place]. CM reminded Teresita that it was she who told CM that the VA had offered to work with her toward getting services and we discussed that this can be a lengthy process and CM was of the understanding that STR @ [facility] was the plan until Teresita has sufficient time to get additional home services. Teresita insists that Patient will go home today by her own car (refused BLS several times)and that she is certain she can manage to get Patient from the car to the house. Teresita is agreeable to [facility], who has been notified of today's dc. NINA has relayed this information to the MD. IMM addressed at bedside, in detail, with Teresita and she was provided the original and a copy has been placed on the chart. NINA attempted to involve Patient in the dc planning process but his responses did not appear as though he was understanding. CM will follow per MD orders.
[2023-11-28] MEDS: Enoxaparin Sodium 80 MG/0.8 ML SYRINGE SUBCUT (11:43)
[2023-11-28] MEDS: allopurinoL 300 MG TABLET PO (11:44)
[2023-11-28] MEDS: Potassium Chloride Packet 20 MEQ PACKET 40 MEQ PO (11:44)
[2023-11-28 11:52] LABS: C Reactive Protein 0.28 mg/dL (< or = 0.50)
--- NOTE | 2023-11-28 13:18 | P.F2F_ITS ---
Service Date Service Date: 11/28/23 Encounter Date of encounter: 11/28/23 Reasons for Services Signs and symptoms assessed: Gross Deconditioning, Impaired Bed Mobility, Impaired Cognition, Impaired Gait Pattern, Impaired Joint ROM,Impaired Safety,Impaired Transfer Ability,Muscle Weakness,Pain Reason for physical therapy: home safety and mobility, therapeutic exercises, gait/transfer training, assess need for DME, ADL training and energy conservation MD Overseeing Care: Alex Mitchell Homebound: Leaving the home is medically contraindicated at this time without the asist of a device and/or another person due th the listed conditions above and below. Reason homebound: unsteady gait / fall risk and cognitively impaired / unsafe Homebound supporting statement: Bed Mobility, Transfer Training,Gait Training, Therapeutic Activities, T herapeutic Exercise, Patient Education, Safety,Balance Certification: Based on the above findings, I certify that this patient is confined to the home and needs intermittent intermediate care, physical therapy and/or speech therapy, or continues to need occupational therapy. The patient is under my care, and I have initiated the establishment of the plan of care. The patient will be followed by a physician who will periodically review the plan of care. Time Spent With Patient Time: Total time managing care of this patient today ____ minutes.
--- NOTE | 2023-11-28 13:27 | MHC.CM.PN ---
Patient has been medically cleared for dc to home today with services. [facility] has been notified of today's dc. IMM addressed earlier today. declined BLS transport and insisting to drive Patient home herself. Yesterday when CM entered the room, was speaking on the phone with someone she told CM was a possible privately pier hand helper opportunity. states that the VA has offered to assist and she was aware of the [facility] [place] and [facility] services (offers 21/05 live -in care for < $300.00/day).
--- NOTE | 2023-11-28 13:50 | P.DS_ITS ---
DS: Providers Provider Date of Service: 11/28/23 Date of admission: 11/23/23 18:42 Date of discharge: 11/28/23 Primary care physician: Alex Mitchell MD Consults: 11/23/23 19:12 Consult to Gastroenterology Routine Consulting Provider: [facility] [place] Gastroenterology Services Reason for consultation: acute cholecytitis Has provider been notified: No Consult to General Surgery Routine Consulting Provider: [facility] [place] General Surgeons Reason for consultation: acute cholecystitis Has provider been notified: No 11/24/23 11:13 Consult to Cardiology Routine Consulting Provider: [facility] [place] Cardiovascular Services Reason for consultation: risk startification for cholecytectomy Has provider been notified: No DS: Diagnosis Discharge Diagnosis (1) Biliary dyskinesia: Status: Acute (2) Hypokalemia: Status: Acute DS: Summary Hospital Course Hospital Course: From admission H+P by hospitalist Lanre Chadd, 11/23/23: 78 y/o M with pmhx atrial fibrillation on Eliquis, arthritis, hyperlipidemia, BPH, pre diabetes, anxiety, ODILIA on CPAP came for abdominal pain and low blood pressure. The patient has dementia and unable to provide much hx. hx was taken from ed physician and patient . The patient may have history of gallbladder disease and was complaining of abdominal pain which may have been relieved after the patient had a bowel movement. said that abdominal pain started after eating ice cream and food. called paramedics-as per are his blood pressure was on borderline to low, he received his metoprolol 1-2 hours prior to getting this blood pressure checked by the paramedics- subsequently received normal saline 250 cc IV bolus and the patient's blood pressure on arrival was 110/50. When we saw the patient and even the ED physician report: Patient was not having any abdominal pain or any low blood pressure on arrival. patient was seen recently [facility] of her right upper quadrant pain,cta bd was done -please see below. labs ,imaging reviewed: Chronic leukopenia, BMP seems fine except BUN is 23 and creatinine is 1.05. Lactic acid 1.2, no fever: Abdominal ultrasound:ILimited exam as described. Cholelithiasis with gallbladder wall thickening and possible areas of gallbladder wall edema versus pericholecystic fluid. The common duct is not appear dilated. Cholecystitis cannot be excluded. he also had ct abd in [facility]: Diffuse hepatic steatosis. There is a partially calcified low density lesion seen in segment 6 of the liver series. This measures up to 1.6 x 1.3 cm and is most likely a peripherally calcified hepatic cyst. Gallbladder: Cholelithiasis. No evidence of acute inflammation,Bile ducts: Mild prominence of the upper common bile duct up to 1.2 cm. ED physician: Discussed the case with surgery recommended admission for possible cholecystitis -IV antibiotics, hold Eliquis for until surgery evaluation. Denies any new complaint of chest pain or shortness of breath or abdominal pain or fever or chills or nausea or vomiting or cough or weakness or numbness. He was admitted to the hospitalist service. Total bilirubin normalized and he did not have any further abdominal pain. Abdominal US showed cholielithiasis without cholecystitis. HIDA scan was suggestive of biliary dyskinesia. He was seen by GI and Surgery and no surgical intervention was deemed necessary. Blood pressure improved with IV hydration and his PO intake improved. STR was recommended but his declined and he was sent home with [facility] services. He will need repeat BMP in 1 week. Time Attestation Discharge coordination time: Greater than 30 minutes Quality: Safe Use of Opioids Does Pt have an Active Cancer Diagnosis on the Problem List?: No Quality: Stroke Does the patient have a stroke diagnosis?: No Physical Exam Vital Signs: Vital Signs: Last Vital Signs Temp 97.5 F 11/28/23 11:22 Pulse 71 11/28/23 11:22 Resp 18 11/28/23 11:22 BP 101/56 L 11/28/23 11:22 Pulse Ox 98 11/28/23 11:22 O2 Del Method Room Air 11/28/23 11:22 O2 Flow Rate 97 11/25/23 08:00 BMI result Body Mass Index 25.7 Gen: in no acute distress HEENT: sclera anicteric, moist mucus membranes Neck: supple Lungs: clear to auscultation bilaterally Heart: regular rate and rhythm, no murmurs Abd: soft, non-tender, non-distended Ext: no edema Skin: warm/well-perfused Neuro: alert and oriented x3, masked facies, rest tremor Psych: appropriate affect DS: Data Data Completed and Pending Completed studies during hospitalization [Text1]: Laboratory Results WBC 2.7 X10*3/uL (4.8-10.8) L 11/28/23 09:16 RBC 3.29 X10*6/uL (4.60-5.80) L 11/28/23 09:16 Hgb 11.1 g/dl (14.0-18.0) L 11/28/23 09:16 Hct 32.7 % (42.0-52.0) L 11/28/23 09:16 MCV 99.4 fL (80.0-98.0) H 11/28/23 09:16 MCH 33.7 pg (27.0-33.0) H 11/28/23 09:16 MCHC 33.9 g/dl (31.0-36.0) 11/28/23 09:16 RDW 13.0 % (11.0-16.0) 11/28/23 09:16 Plt Count 177 X10*3/uL (160-400) 11/28/23 09:16 MPV 9.1 fL (9.4-12.4) L 11/28/23 09:16 Immature Gran % (Auto) 0.3 % (0.0-0.4) 11/24/23 06:11 Neut % (Auto) 50.1 % (45-73) 11/24/23 06:11 Lymph % (Auto) 29.0 % (20-40) 11/24/23 06:11 [place] % (Auto) 12.0 % (2-11) H 11/24/23 06:11 Eos % (Auto) 7.7 % (0-4) H 11/24/23 06:11 Baso % (Auto) 0.9 % (0-2) 11/24/23 06:11 Lymph # (Auto) 0.9 X10*3/uL (1.2-4.9) L 11/24/23 06:11 [place] # (Auto) 0.4 X10*3/uL (0.1-1.2) 11/24/23 06:11 Eos # (Auto) 0.3 X10*3/uL (0.0-0.4) 11/24/23 06:11 Baso # (Auto) 0.0 X10*3/uL (0.0-0.2) 11/24/23 06:11 Abs Immat Gran (auto) 0.01 X10*3/uL (0.00-0.03) 11/24/23 06:11 Absolute Neuts (auto) 1.6 x10*3/uL (2.0-8.3) L 11/24/23 06:11 Absolute Nucleated RBC 0.000 X10*3/uL (0.0-0.012) 11/28/23 09:16 Nucleated RBC % (auto) 0.0 /100WBC (0.0-0.2) 11/28/23 09:16 Smear Path Review SEE NOTE 11/23/23 14:18 Hold Purple Top SEE NOTE 11/26/23 06:52 PT 16.0 SEC (11.1-13.3) H 11/23/23 17:49 INR 1.3 (0.9-1.1) H 11/23/23 17:49 APTT 34.7 SEC (26.0-36.4) 11/23/23 17:49 Sodium 144 mmol/L (135-145) 11/28/23 09:16 Potassium 3.1 mmol/L (3.3-5.1) L 11/28/23 09:16 Chloride 110 mmol/L (96-108) H 11/28/23 09:16 Carbon Dioxide 27 mmol/L (22-29) 11/28/23 09:16 Anion Gap 10 (12-20) L 11/28/23 09:16 BUN 18 mg/dL (9-16) H 11/28/23 09:16 Creatinine 0.84 mg/dL (0.5-1.4) 11/28/23 09:16 Estim Creat Clear Calc 72.4 11/28/23 09:16 Estimated GFR > 60 11/28/23 09:16 Random Glucose 98 mg/dL (60-115) 11/28/23 09:16 Lactic Acid 1.2 mmol/L (0.5-2.0) 11/23/23 17:49 Calcium 8.7 mg/dL (8.4-10.2) D 11/28/23 09:16 Total Bilirubin 0.7 mg/dL (0.0-1.0) 11/28/23 09:16 Direct Bilirubin 0.5 mg/dL (0.0-0.5) 11/24/23 06:11 AST 43 U/L (5-37) H 11/28/23 09:16 ALT 7 U/L (0-40) 11/28/23 09:16 Alkaline Phosphatase 64 U/L (39-117) 11/28/23 09:16 C-Reactive Protein 0.28 mg/dL (< or = 0.50) 11/28/23 09:16 Total Protein 5.5 g/dL (6.5-8.0) L 11/28/23 09:16 Albumin 3.3 g/dL (3.5-5.0) L 11/28/23 09:16 Lipase 21 U/L (8-78) 11/23/23 14:18 Urine Color Yellow 11/23/23 14:58 Urine Appearance Cloudy 11/23/23 14:58 Urine pH 6.0 (5.0-9.0) 11/23/23 14:58 Ur Specific [place] 1.015 (1.005-1.025) 11/23/23 14:58 Urine Protein 30 (1+) mg/dL (Neg-Trace) H 11/23/23 14:58 Urine Glucose (UA) Negative mg/dL (Negative) 11/23/23 14:58 Urine Ketones Negative mg/dL (Negative) 11/23/23 14:58 Urine Blood Large (3+) (Negative) H 11/23/23 14:58 Urine Nitrite Negative (Negative) 11/23/23 14:58 Ur Leukocyte Esterase Moderate (2+) (Negative) H 11/23/23 14:58 Urine RBC >20 /HPF (0-2) H 11/23/23 14:58 Urine WBC 11-20 /HPF (0-5) H 11/23/23 14:58 Ur Squamous Epith Cells 3-5 /HPF (0-2) 11/23/23 14:58 Calcium Oxalate Crystal Present 11/23/23 14:58 Urine Bacteria None Seen (None Seen) 11/23/23 14:58 Hyaline Casts 0-2 /LPF (0-2) 11/23/23 14:58 Blood Type O Positive 11/23/23 17:50 Antibody Screen NEGATIVE 11/23/23 17:50 Impressions Chest X-Ray 11/23/23 14:35 IMPRESSION: No evidence of pneumonia. Abdomen Ultrasound 11/23/23 15:42 IMPRESSION: Limited exam as described. Cholelithiasis with gallbladder wall thickening and possible areas of gallbladder wall edema versus pericholecystic fluid. The common duct is not appear dilated. Cholecystitis cannot be excluded. If further evaluation is warranted recommend HIDA scan Hepatobiliary Scan Nuclear Medicine 11/24/23 17:15 IMPRESSION: Findings suggestive of dyskinetic gallbladder with no emptying seen post-CCK at 30 minutes. Normal hepatic uptake. Patent CBD and cystic duct. Discharge Plan Discharge Anticipated Discharge Date/Time: 11/26/23 12:33 Patient Disposition: Home Health Service Discharge Diagnosis: Possible Biliary dyskinesia Referrals: [facility] [Outside] - 1 Week Alex Mitchell MD [Primary Care Provider] - 1 Week Discharge Medications: New omeprazole 20 mg Capsule,Delayed Release(Dr/Ec) 20 mg PO DAILY@0630 Qty: 30 0RF Continued multivitamin with minerals Tablet 1 tab PO DAILY@1500 carbidopa-levodopa 25-100 mg tablet 1 tab PO BID@1200,1800 calcium citrate 250 mg calcium Tablet 250 mg PO DAILY@1500 melatonin 10 mg Tablet 10 mg PO BEDTIME quetiapine 25 mg tablet 25 mg PO BEDTIME donepezil 10 mg tablet 15 mg PO DAILY carbidopa-levodopa 25-100 mg tablet 1 tab PO TID@0900,1500,2100 rasagiline 1 mg tablet 1 mg PO DAILY@2000 potassium chloride 20 mEq/15 mL Liquid 20 meq PO BEDTIME Align 4 mg Capsule 4 mg PO BEDTIME quetiapine 25 mg Tablet 12.5 mg PO DAILY allopurinol 300 mg tablet 300 mg PO DAILY@1030 finasteride 5 mg tablet 5 mg PO DAILY@1800 levothyroxine 125 mcg tablet 125 mcg PO DAILY@0600 metoprolol tartrate 25 mg tablet 37.5 mg PO BID tamsulosin 0.4 mg capsule 0.4 mg PO DAILY@2000 Eliquis 5 mg tablet 5 mg PO BID B-complex with vitamin C Capsule 1 cap PO DAILY@1800 polyethylene glycol 3350 [Miralax] 17 gram/dose powder 17 g PO DAILY@0830 Discharge Orders: Discharge Order (Routine); Ordered 11/28/23 Ordered By: Rocio Sherman Diet: Advance to usual diet Activity on Discharge: As tolerated Stand Alone Forms: Patient Portal Discharge page Other Ambulatory Orders: Comprehensive Met. Panel (Routine) Timeframe: 1 Week Facility: [facility] - Location: Laboratory Ordered By: Rocio Sherman Care Plan Goals: Patient was admitted to the hospital because of question of abdominal pain initially, as well as softer blood pressure: Ever since hospitalized did not had any abdominal pain, total bilirubin seems to be improving, patient also had further workup with abdominal ultrasound and HIDA scan: Patient has cholelithiasis, and possible biliary dyskinesia: Seen by surgery and GI-patient is asymptomatic, bilirubin improving, no acute intervention recommended. Short-term rehabilitation recommended but declined; discharging home with [facility] services. Repeat CMP in 1 week ,please. Health Concerns: As above. Plan of Treatment: As above. Assessment: As above.
== END 2023-11-28 15:14 | disposition home health service (06) | DRG 445 ==
LOC: HO.ED 17:30 → HO.EDOVER 19:00 → HO.S3 19:43 → HO.EDOVER 20:04 → HO.IMC 11-24 14:01
PROVIDERS: Admitting Provider Internal Medicine; Emergency Provider Emergency Medicine Emergency Medical Services; PCP Internal Medicine; Visit Provider Family Medicine
DX: K82.8 Other specified diseases of gallbladder (principal); I48.21 Permanent atrial fibrillation; K80.20 Calculus of gallbladder without cholecystitis without obstruction; G47.33 Obstructive sleep apnea (adult) (pediatric); N40.0 Benign prostatic hyperplasia without lower urinary tract symptoms; K76.0 Fatty (change of) liver, not elsewhere classified; G20.A1 Parkinson's disease without dyskinesia, without mention of fluctuations; F02.80 Dementia in other diseases classified elsewhere, unspecified severity, without behavioral disturbance, psychotic disturbance, mood disturbance, and anxiety; E87.6 Hypokalemia; I35.0 Nonrheumatic aortic (valve) stenosis; E78.5 Hyperlipidemia, unspecified; F41.9 Anxiety disorder, unspecified; Z86.711 Personal history of pulmonary embolism; Z79.01 Long term (current) use of anticoagulants; Z79.890 Hormone replacement therapy; Z79.899 Other long term (current) drug therapy
CPT/HCPCS: 36415; 71045; 76705; 78227; 80048; 80053; 80076; 81001; 83605; 83690; 85025; 85027; 85610; 85730; 86140; 86850; 86900; 86901; 87040; 87086; 93005; 93306; 97116; 97162; 97530; 99285; A9537; J1650; J2543; J2805; J7120; Q9957

== ENCOUNTER 2023-11-23 18:42 | Outpatient (BNV) | payer OTHER, MEDICARE, SELFPAY | END 2023-11-24 07:00 | PROVIDERS: Admitting Provider Internal Medicine; Emergency Provider Emergency Medicine Emergency Medical Services; PCP Internal Medicine; Visit Provider Internal Medicine Cardiovascular Disease | DX: I48.91 Unspecified atrial fibrillation (principal) | CPT/HCPCS: 93306 ==

== ENCOUNTER → 2023-11-23 18:42 | Outpatient (BNV) | payer OTHER, MEDICARE, SELFPAY | PROVIDERS: Admitting Provider Internal Medicine; Emergency Provider Emergency Medicine Emergency Medical Services; PCP Internal Medicine; Visit Provider Surgery | DX: K80.20 Calculus of gallbladder without cholecystitis without obstruction (principal) | CPT/HCPCS: 99223; 99232 ==

== ENCOUNTER → 2023-11-23 18:42 | Outpatient (BNV) | payer OTHER, MEDICARE, SELFPAY | PROVIDERS: Admitting Provider Internal Medicine; Emergency Provider Emergency Medicine Emergency Medical Services; PCP Internal Medicine; Visit Provider Internal Medicine Cardiovascular Disease | DX: K80.20 Calculus of gallbladder without cholecystitis without obstruction (principal); I48.91 Unspecified atrial fibrillation; I35.0 Nonrheumatic aortic (valve) stenosis | CPT/HCPCS: 93010; 99223; 99232 ==

== ENCOUNTER → 2023-11-23 18:42 | Outpatient (BNV) | payer OTHER, MEDICARE, SELFPAY | PROVIDERS: Admitting Provider Internal Medicine; Emergency Provider Emergency Medicine Emergency Medical Services; PCP Internal Medicine; Visit Provider Internal Medicine | DX: K82.8 Other specified diseases of gallbladder (principal); E87.6 Hypokalemia | CPT/HCPCS: 99222; 99231; 99232; 99239; G0180 ==

== ENCOUNTER 2023-12-03 08:31 | Outpatient (AMB) | payer OTHER, MEDICARE, SELFPAY ==
--- NOTE | 2023-12-03 08:31 | A.OFFVIS_ITS ---
Intake Intake Visit Reasons: 2 mo/f/u- Parkinson - CONF Intake Note: Pt presents for 2 month follow up for Parkinsons via telehealth. . Allergies No Known Allergies Allergy (Mild, Verified 11/23/23 14:19) N/A Medication List - Last Reconciled 12/03/23 by Raven Cade MD allopurinol 300 mg PO DAILY@1030 apixaban (Eliquis) 5 mg PO BID B-complex with vitamin C 1 cap PO DAILY@1800 calcium citrate 250 mg PO DAILY@1500 carbidopa-levodopa 25-100 mg 1 tab PO BID@1200,1800 carbidopa-levodopa 25-100 mg 1 tab PO TID@0900,1500,2100 donepezil 15 mg PO DAILY finasteride 5 mg PO DAILY@1800 levothyroxine 125 mcg PO DAILY@0600 melatonin 10 mg PO BEDTIME metoprolol tartrate 37.5 mg PO BID multivitamin with minerals 1 tab PO DAILY@1500 polyethylene glycol 3350 (Miralax) 17 grams PO DAILY@0830 potassium chloride 20 mEq PO BEDTIME quetiapine 25 mg PO BEDTIME quetiapine 12.5 mg PO DAILY rasagiline 1 mg PO DAILY@2000 tamsulosin 0.4 mg PO DAILY@2000 HPI HPI Comments History of Present Illness Details 78y/o Right handed male calls for follow up of Parkinsons disease.He was hospitalized last week for Gall bladder issues . He is more fatigued and dizzy.2 days go his BP 67/41. This morning 156/81. He is accompanied by his Adele. He is exercising 2 days a week and drinking 70 oz per day . He stopped nuplazid - his did not feel it helped. He has episodes of panic attacks- he talks about not being safe in the house . His plays some music and it helps . 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 History-He noticed shuffling about 6 years ago and it has progressively worsened since then and was diagnosed with parkinsons disease by Dr. Judge .He also has tremors are mostly at rest . He reports mild memory issues. Sleep is ok . He frequently talks in his sleep. No screaming or acting out dreams . He takes occasional daytime naps. He has mild depression and less motivated. He speech is softer or he has occasional drooling . He has difficulty with hand writing, using utensils, needs help with dressing , needs help with shower. He has trouble turning in bed, has trouble lifting his legs. He has trouble getting out of car. He goes to [facility] for 2 classes/week His gait is slow and mildly off balance No falls. No dizziness , no double vision . He has loose stools and mild urgency . [facility] Medical History (Updated 12/03/23 @ 09:04 by Raven Cade MD) Parkinson's disease with fluctuating manifestations Anxiety Spasmodic torticollis Neck pain ODILIA on CPAP Atrial fibrillation Arthritis Borderline hyperlipidemia Prostate enlargement Prediabetes Surgical History H/O neck surgery Status post cryoablation H/O lithotripsy Social History Household Members: Spouse Housing: House Alcohol intake: current Alcohol intake frequency: holidays/special occasions only Patient Tobacco Use Status: Never used Tobacco Advance Directives Date on File: 11/24/23 service: Yes Physical Exam Const Other: ALert and oriented Mild hypophonia Assessment & Plan Assessment & Plan (1) Parkinson's disease with fluctuating manifestations: Code(s): G20.A2 - Parkinson's disease without dyskinesia, with fluctuations (2) Spasmodic torticollis: Code(s): G24.3 - Spasmodic torticollis (3) Anxiety: Code(s): F41.9 - Anxiety disorder, unspecified Plan Continue sinemet 25/100 1tab 5 times a day Increase quetiapine 12.5 mg bid and 25 mg qhs Maintain fluids and monitor BP. donepezil 20mg qd Telehealth Telehealth Location of provider rendering services: practice address Location of patient: address on file Patient Identification confirmed using: Name, : Yes Telehealth method: voice only Patient verbally consented to treatment: Yes Patient verbally consented to billing insurance company: Yes Patient informed of any privacy concerns related to visit: Yes Minutes spent on Phone/Video with Pt.: 18 Coding Level of Care Code Tele Est Pt Level 4 (04286) Diagnoses Parkinson's disease with fluctuating manifestations G20.A2 Spasmodic torticollis G24.3 Anxiety F41.9 Time Spent (min) 20
== END 2023-12-05 08:17 | disposition home or self-care (01) ==
LOC: HO.HSMS 08:31
PROVIDERS: PCP Internal Medicine; Visit Provider Psychiatry & Neurology Neurology
DX: G20.A2 Parkinson's disease without dyskinesia, with fluctuations (principal); G24.3 Spasmodic torticollis; F41.9 Anxiety disorder, unspecified
CPT/HCPCS: 99214

== ENCOUNTER → 2023-12-03 08:31 | Outpatient (BNVA) | payer OTHER, MEDICARE, SELFPAY | PROVIDERS: PCP Internal Medicine; Visit Provider Psychiatry & Neurology Neurology ==

== ENCOUNTER 2024-01-02 14:48 | Outpatient (AMB) | payer OTHER, SELFPAY ==
--- NOTE | 2024-01-02 14:55 | A.OFFVIS_ITS ---
Intake Vital Signs 01/02/24 14:58 Height 5 ft 10 in Weight 169 lb 12.095 oz BMI 24.4 BP 127/59 L Blood Pressure Location Lt brachial Position Sitting Pulse 71 Intake Visit Reasons: Abd Distention, Nausea Intake Note: Avelino presents in the office as a new patient for abdominal distention and nausea. CC: States that he was in [facility] ED for a week and there was a HIDA scan, US and other testing. Allergies cat dander Allergy (Mild, Verified 01/09/24 14:48) Unknown HPI HPI Comments History of Present Illness Details 78 y.o M with PMH of Parkinsons dementia , Afib on eliquis, remote hx of renal cell ca, who is here for intermittent RUQ pain. Pt's offers most of the history - reports multiple episode of intermittent RUQ pain since December, which became more frequent from August 2023 onwards. Was hospitalised to [facility] in Oct 2023 after severe abd pain and chills that started after pt had food including ice cream. US Abd showed a large 2.9 x 1.4 x 2.5 cm gallstone a/w GB wall thickening and some fluid around the GB with decompressed bile ducts. Pt was seen by gen surg and deemed high risk for surgery. Advised HIDA to inform decision for perc drainage which was ABNORMAL with cck. Pt's is quite overwhelmed and upset by pt's daily symptoms and lack of appetite due to pain erlinda after eating. She is wondering if there are other options for his cholelithiasis. PFSH Medical History Parkinson's disease with fluctuating manifestations Anxiety Spasmodic torticollis Neck pain ODILIA on CPAP Atrial fibrillation Arthritis Borderline hyperlipidemia Prostate enlargement Prediabetes Surgical History Hx of colonoscopy H/O neck surgery Status post cryoablation H/O lithotripsy Social History Household Members: Spouse Housing: House Alcohol intake: current Alcohol intake frequency: holidays/special occasions only Patient Tobacco Use Status: Never used Tobacco Advance Directives Date on File: 11/24/23 service: Yes Review of Systems Const All systems reviewed & are unremarkable except as noted in HPI and below Physical Exam Vital Signs: Last Vital Signs Pulse 71 01/02/24 14:58 BP 127/59 L 01/02/24 14:58 BMI result Body Mass Index 24.4 Elderly frail gent Masked facies abd soft, mild tenderness diffusely, no guarding Assessment & Plan Assessment & Plan (1) Cholelithiasis: Code(s): K80.20 - Calculus of gallbladder without cholecystitis without obstruction (2) Chronic cholecystitis: Code(s): K81.1 - Chronic cholecystitis Plan Reviewed in detail with pt and his that appears to have chronic cholecystitis based on sx and imaging including HIDA. Has a large stone measuring almost 3 cm based on the most recent US which portends high risk for perforation and fistulization. Recommendations: - Second opinion with surgery at a tertiary care hospital - Should also see advanced GI at [facility] for EUS guided GB drainage if nto an operative candidate - either as a primary procedure or to internalise the drainage if perc-sondra done. - In the meantime Rocio 250 TID Rxed - although will not be surprised if not effective given the size of the stone Pt's tells me she has already secured an appt with GI at [facility] for next month - unsure of MD's name. A follow up appt is not being scheduled today but they were encouraged to call the office for follow up as needed. Medications: New ursodiol 250 mg PO TID 270 tabs 1RF 90 days Coding Level of Care Code New Pt Level 4 (18512) Diagnoses Cholelithiasis K80.20 Chronic cholecystitis K81.1
[2024-01-02 14:58] VITALS: BP 127/59; PULSE 71; BMI 24.4
== END 2024-01-02 15:58 | disposition home or self-care (01) ==
PROVIDERS: PCP Internal Medicine; Visit Provider Internal Medicine
DX: K80.10 Calculus of gallbladder with chronic cholecystitis without obstruction (principal)
CPT/HCPCS: 99204

== ENCOUNTER → 2024-01-02 14:48 | Outpatient (BNVA) | payer OTHER, SELFPAY | PROVIDERS: PCP Internal Medicine; Visit Provider Internal Medicine ==

== ENCOUNTER 2024-01-09 14:34 | Outpatient (AMB) | payer OTHER, SELFPAY ==
[2024-01-09 14:41] VITALS: BP 88/58; PULSE 58; RESP 15; O2SAT 97; BMI 23.7
--- NOTE | 2024-01-09 14:41 | MHC.OFFVIS ---
Intake Vital Signs 01/09/24 14:41 01/09/24 15:14 Height 5 ft 10 in Weight 165 lb 6 oz BMI 23.7 BP 88/58 L 98/68 Blood Pressure Location Rt brachial Rt brachial Position Sitting Semi Andrade's Respiration 15 Pulse 58 Pulse Source Pulse Oximeter Pulse Oximetry (%) 97 Oxygen Delivery Method Room Air Intake Visit Reasons: Botox-Confirmed Intake Note: Pt presents to the office for his Botox injections. Dispatcher Radio Required: No Allergies cat dander Allergy (Mild, Verified 01/09/24 14:48) Unknown Medication List - Last Reconciled 01/09/24 by Raven Cade MD allopurinol 300 mg PO DAILY@1030 apixaban (Eliquis) 5 mg PO BID B-complex with vitamin C 1 cap PO DAILY@1800 calcium citrate 250 mg PO DAILY@1500 carbidopa-levodopa 25-100 mg 1 tab PO BID@1200,1800 carbidopa-levodopa 25-100 mg 1 tab PO TID@0900,1500,2100 donepezil 15 mg PO DAILY finasteride 5 mg PO DAILY@1800 levothyroxine 125 mcg PO DAILY@0600 melatonin 10 mg PO BEDTIME metoprolol tartrate 37.5 mg PO BID midodrine 2.5 mg PO BID multivitamin with minerals 1 tab PO DAILY@1500 omeprazole 20 mg PO DAILY polyethylene glycol 3350 (Miralax) 17 grams PO DAILY@0830 potassium chloride 20 mEq PO BEDTIME quetiapine 12.5 mg PO DAILY quetiapine 1/2 tab bid orally bid rasagiline 1 mg PO DAILY@2000 tamsulosin 0.4 mg PO DAILY@2000 ursodiol 250 mg PO TID 90 days HPI HPI Comments History of Present Illness Details 78Y/o male comes for treatment of his cervical dystonia. ? Side effects including spread of toxin effect, dysphagia, breathing difficulties , bronchitis etc was discussed in detail and the patient agreed to the procedure.An informed consent was obtained ??? Botulinum toxin type A 100units X 1 -was diluted with 2 cc of normal saline at a concentration of 25 units in 0.5cc saline. Lot number [id number] expiration 01/2026 ??? Muscles injected ??? mayur Splenius - 25 units each ??? right levator 25 units each ??? left semispinalis 25units each ??? Total used 100 units PFSH Medical History Parkinson's disease with fluctuating manifestations Anxiety Spasmodic torticollis Neck pain ODILIA on CPAP Atrial fibrillation Arthritis Borderline hyperlipidemia Prostate enlargement Prediabetes Surgical History Hx of colonoscopy H/O neck surgery Status post cryoablation H/O lithotripsy Social History Household Members: Spouse Housing: House Alcohol intake: current Alcohol intake frequency: holidays/special occasions only Patient Tobacco Use Status: Never used Tobacco Advance Directives Date on File: 11/24/23 service: Yes Physical Exam Vital Signs: Last Vital Signs Pulse 58 01/09/24 14:41 Resp 15 01/09/24 14:41 BP 88/58 L 01/09/24 14:41 Pulse Ox 97 01/09/24 14:41 Oxygen Delivery Method Room Air 01/09/24 14:41 BMI result Body Mass Index 23.7 Const Other: ALert and oriented Mild hypophonia Neuro Other: antecollis Office Procedures Botulinum toxin Injection 14758 - Dystonia Procedure code (CPT) selection complete Office Meds onabotulinumtoxinA 100 unit solution for injection Performing Provider: Raven Cade MD Performing Location: [facility] Administered by: Raven Cade MD on 01/09/24 15:22 Dose Route Admin Location Dispensed Lot Number Expiration Date [facility] [place] [employer] 100 unit IM 100 units [id number] 01/27/26 9202-3388-03 [employer] Comments: see HPI Assessment & Plan Assessment & Plan (1) Spasmodic torticollis: Code(s): G24.3 - Spasmodic torticollis (2) Parkinson's disease: Code(s): G20 - Parkinson's disease Plan Patient tolerated the procedure well He will call with any side effects melatonin 10mg qhs add caffiene to improve fatigue Orders: Orders AMB Botulinum toxin Injection Today G24.3 - Spasmodic torticollis Medications: Changed From quetiapine 25 mg PO BEDTIME To quetiapine 1/2 tab bid orally bid 180 tabs 6RF Coding Level of Care Code Est Pt Level 1 (84266) Diagnoses Spasmodic torticollis G24.3 Parkinson's disease G20 CPT Codes Botox Injection - Botox 4: 93949 - Dystonia ([id number])
[2024-01-09 15:14] VITALS: BP 98/68
== END 2024-01-09 15:41 | disposition home or self-care (01) ==
PROVIDERS: PCP Internal Medicine; Visit Provider Psychiatry & Neurology Neurology
DX: G24.3 Spasmodic torticollis (principal)
CPT/HCPCS: 64616

== ENCOUNTER → 2024-01-09 14:34 | Outpatient (BNVA) | payer MEDICARE, SELFPAY | PROVIDERS: PCP Internal Medicine; Visit Provider Psychiatry & Neurology Neurology | DX: G24.3 Spasmodic torticollis (principal); G20.A1 Parkinson's disease without dyskinesia, without mention of fluctuations; Z79.899 Other long term (current) drug therapy | CPT/HCPCS: 64616; 99211; J0585 ==

== ENCOUNTER 2024-01-22 11:48 | Emergency (ER) | payer OTHER, SELFPAY ==
--- NOTE | ~2024-01-22 | CT_ITS ---
EXAMINATION: CT abdomen pelvis w IV con CLINICAL INFORMATION: Reason for Exam Right sided abdominal pain COMPARISON: Prior CT 2018 TECHNIQUE: Multidetector volumetric imaging was performed from the superior aspect of the liver through the pubic symphysis , 85 mL Omnipaque 350 injected. Sagittal and coronal reformatted images were obtained on the technologist's workstation. This CT examination was performed using dose optimization techniques as appropriate, variously including the following: *Automated exposure control *Adjustment of mA and/or kV according to patient size (this includes techniques or standardized protocols for targeted exams where dose is matched to indication/reason for exam; i.e. extremities or head) *Use of iterative reconstruction technique DLP: 1138 mGy-cm FINDINGS: LOWER THORAX: Included lung bases are clear. HEPATOBILIARY: There is a simple cyst in the area liver measure 1.5 cm image 32 series of 3. GALLBLADDER: There is a large gallstone in the gallbladder measure up to 3 cm. SPLEEN: Spleen is normal in size. PANCREAS: No focal mass or ductal dilatation. STOMACH AND GASTROINTESTINAL TRACT: Stomach is unopacified decompressed. Mildly dilated sigmoid colon concerning for sigmoid volvulus. Excess amount of stool in the colon likely underlying baseline of constipation. ADRENALS: No adrenal nodules. KIDNEYS/URETERS: There is a complex cystic and solid structure protruding from the upper pole of the right kidney measure 3.9 x 3.4 cm, the solid component of which at the periphery about 1.2 cm, there are also some calcifications. Since prior exam this complex cyst has developed calcification which was not present on prior CT from 2018. Bosniak class III, there are bilateral multiple nonobstructing kidney stones the largest on the right measure up to 8mm, the largest on the left measure up to 9 mm. URINARY BLADDER: Urinary bladder is nondistended, there are stones floating in the bladder largest 7 mm. PELVIC VISCERA: There are prostatomegaly, prostate is impinging on the bladder floor, there are prostatic calcification. PERITONEUM: No free air or fluid. LYMPH NODES: No lymphadenopathy. VASCULAR:Abdominal aorta normal in size, no aneurysm found. BONES, ABDOMINAL WALL AND SOFT TISSUES: Age-appropriate changes of the spine and skeletal system, no destructive osteolytic or osteosclerotic bone lesion found CT/CT abdomen pelvis w IV con IMPRESSION: 1. Mildly dilated sigmoid colon concerning for sigmoid volvulus. 2. Excess amount of stool in the colon likely underlying constipation. Would recommend clinical correlation, May consider surgical evaluation, patient may benefit from decompression with enema and follow-up x-ray. 3. Complex cystic and solid structure protruding from the upper pole of the right kidney measure up to 3.9 cm, the solid component of which at the periphery about 1.2 cm. This has developed calcification which was not present on prior CT from 2018. Cannot rule out neoplasm,, recommend correlation with follow-up CT scan in 6 months. 4. Bilateral nonobstructing kidney stones. 5. There are stones in the urinary bladder. 6. Cholelithiasis. 7. Prostatomegaly, prostate impinging on the bladder floor.
[2024-01-22 11:55] VITALS: BP 107/55; PULSE 67; RESP 18; TEMP 37.2; O2SAT 98; BMI 24.0
--- NOTE | 2024-01-22 12:03 | ED.GENADULT ---
HPI - General Adult General Chief complaint: Abdominal Pain Stated complaint: Gallbladder issues Time Seen by Provider: 01/22/24 16:05 History of Present Illness HPI narrative: Patient is a 70-year-old male who presents emergency department with his who provides primary history. She reports ongoing issues with gallbladder for which she is being evaluated by [facility] and was referred to [facility]. reports that 4 days ago in the morning while having a bowel movement he had a single episode of bright red blood per rectum with no further episodes after this. She denies any melena. Yesterday and the day prior he had a few hours of abdominal pain primarily to the right side and pacing around. Today he has not reported any pain to his lower seemed uncomfortable by her account. Denies fevers, chills, nausea, vomiting. Reports compliance with low-fat diet. She does state that he has been having coffee and tea once in the morning by recommendation of his neurologist due to episodes of hypotension despite midodrine, she has not certain whether this is exacerbating his gallbladder issues. Related Data Home Medications Medication Instructions Recorded Confirmed allopurinol 300 mg tablet 300 mg PO DAILY@1030 11/10/22 01/09/24 finasteride 5 mg tablet 5 mg PO DAILY@179911/10/22 01/09/24 levothyroxine 125 mcg tablet 125 mcg PO DAILY@0600 11/10/22 01/09/24 metoprolol tartrate 25 mg tablet 37.5 mg PO BID 11/10/22 01/09/24 tamsulosin 0.4 mg capsule 0.4 mg PO DAILY@199911/10/22 01/09/24 B-complex with vitamin C 1 cap PO DAILY@1800 11/15/22 01/09/24 apixaban 5 mg tablet (Eliquis) 5 mg PO BID 11/15/22 01/09/24 polyethylene glycol 3350 17 17 g PO DAILY@0830 11/15/22 01/09/24 gram/dose oral powder (Miralax) calcium citrate 250 mg PO DAILY@1500 11/23/23 01/09/24 carbidopa 25 mg-levodopa 100 mg 1 tab PO BID@1200,1800 11/23/23 01/09/24 tablet carbidopa 25 mg-levodopa 100 mg 1 tab PO TID@0900,1500,2100 11/23/23 01/09/24 tablet donepezil 10 mg tablet 15 mg PO DAILY 11/23/23 01/09/24 melatonin 10 mg tablet 10 mg PO BEDTIME 11/23/23 01/09/24 multivitamin with minerals 1 tab PO DAILY@149911/23/23 01/09/24 potassium chloride 20 mEq/15 mL 20 meq PO BEDTIME 11/23/23 01/09/24 oral liquid quetiapine 25 mg tablet 12.5 mg PO DAILY 11/23/23 01/09/24 rasagiline 1 mg tablet 1 mg PO DAILY@199911/23/23 01/09/24 omeprazole 20 mg capsule,delayed 20 mg PO DAILY 01/02/24 01/09/24 release Previous Rx's Medication Instructions Recorded ursodiol 250 mg tablet 250 mg PO TID 90 days #270 tabs 01/02/24 midodrine 2.5 mg tablet 2.5 mg PO BID #60 tabs 01/08/24 quetiapine 25 mg tablet See Rx Instructions PO .COMPLEX 01/09/24 #180 tabs Allergies Allergy/AdvReac Type Severity Reaction Status Date / Time cat dander Allergy Mild Unknown Verified 01/09/24 14:48 [facility] Past Medical History Medical History Parkinson's disease with fluctuating manifestations Anxiety Spasmodic torticollis Neck pain ODILIA on CPAP Atrial fibrillation Arthritis Borderline hyperlipidemia Prostate enlargement Prediabetes Surgical History Hx of colonoscopy H/O neck surgery Status post cryoablation H/O lithotripsy Social History Social History Household Members: Spouse Housing: House Alcohol intake: current Alcohol intake frequency: holidays/special occasions only Patient Tobacco Use Status: Never used Tobacco Advance Directives: Yes Advance Directives on File: Yes Advance Directives Date on File: 11/29/23 service: Yes Physical Exam ED Vital Signs: Vital Signs - 24 hr 01/22/24 19:27 01/22/24 20:32 Temperature 97.4 F 97.8 F Pulse Rate 82 71 Respiratory Rate 21 H 16 Blood Pressure 140/70 H 159/71 H Pulse Oximetry 99 Oxygen Delivery Method Room Air BMI result Body Mass Index 24.0 Course Course Course Narrative: RME: 78-year-old male with pmh of biliary dyskinesia sent from [facility] GI clinic for concern of right-sided abdominal pain radiating to the umbilicus for the past 2 days. Patient today is asymptomatic but was sent to the ED for evaluation. Abdominal exam benign. Labs UA ordered. [facility] GI clinic when evaluated for possible sigmoid colon dilation versus cancer. states weight loss. Patient presently denies any symptom. Charge nurse informed to bring patient into the ED. Reevaluation(s) Reevaluation #1: CT of the abdomen and pelvis reveals mildly dilated sigmoid colon concerning for sigmoid volvulus, excess stool likely underlying constipation, last bowel movement was 3 days ago as per HPI, his reports he does typically have very loose stools and he is taking MiraLax daily. He may additionally need a stool softener to help loosen this stool burden, will add docusate. Reviewed CT with ED attending, Dr. rivas, suspect that this is unlikely a volvulus and would anticipate marked distention of the sigmoid colon, as discussed & MDM, his prior CT modalities from outpatient radiology reports reveal a stricture within the sigmoid colon which is anticipated to be what the radiologist is visualizing as reported area of concern. He has no pain in the left lower abdomen. Complex cystic and solid structure protruding from the upper pole of the right kidney measuring up to 3.9 cm with developing calcification, in comparison to his outpatient radiology reports from [facility], the most recent size proportions I am able to determine is from November of 2021 where it measures approximately 1.6 x 1.3 cm, I did discuss this with patient's as he has a history of renal cell carcinoma, and reports prior ? Cryoablation and stability moving forward, she verbalizes understanding that this may be increased in size and she should follow-up further outpatient with specialists for further comparison. At this time patient reports feeling overall well, has no abdominal pain, is tolerating oral intake, and feel that he is stable for discharge home and outpatient follow-up. Time: 20:11 Medications Administered Discontinued Medications Generic Name Dose Route Start Last Admin Trade Name Freq PRN Reason Stop Dose Admin Sodium Chloride 1,000 mls @ 999 mls/hr 01/22/24 16:45 01/22/24 19:45 Ns IV 01/22/24 17:45 Infused .Q1H1M COLLINS Infusion Iohexol 100 ml 01/22/24 16:54 01/22/24 16:55 Iohexol 350 Mg/Ml 100 Ml Infus..Btl IV 01/22/24 16:55 85 ml ONCE ONE Administration Medical Decision Making Medical Decision Making [facility] Narrative: Patient is a 78-year-old male with past medical history of atrial fibrillation, arthritis, hyperlipidemia, BPH, glucose intolerance, ODILIA on CPAP, dementia, BPH, renal mass, renal cell cancer, Parkinson's, sick sinus syndrome with pacemaker, chronic cholecystitis, biliary dyskinesia presenting to emergency department his for evaluation of prior episodes of abdominal pain, and hematochezia as per HPI. Reviewed outpatient records from gastroenterology; December [address] Diop; appears to have chronic cholecystitis based on symptoms and imaging including HIDA. Has a large stone measuring almost 3 cm based on the most recent US which portends high risk for perforation and fistulization. Seen by General surgery here and deemed a high-risk candidate for surgery. Recommendations from GI include: 1. Second opinion with surgery at a tertiary care hospital 2.Should also see advanced GI at [facility] for EUS guided GB drainage if not an operative candidate - either as a primary procedure or to internalize the drainage if perc-sondra done. 3. In the meantime Rocio 250 TID prescribed but concern for efficacy given the size of the stone Patient's reports that he was evaluated at [facility] by Dr. Arshad who recommends patient having an MRI for further evaluation and determination as to whether there are any CBD stones this is not yet been scheduled. She called him yesterday to advise him of the symptoms he was experienced over the weekend and was advised to come back to the emergency department which is why she is here today. Reportedly Dr. Arshad expressed concern about his sigmoid colon; his presents to me to [facility] Radiology impressions from CTs of the abdomen and pelvis including November of 2021 and October of 2022 revealing a distended sigmoid colon most recently of 7 cm with presence of stricture. She reports he had a colonoscopy which she believes was in 2019 and was normal to her recollection. Overall he appears well, is acting consistent with baseline per . Vitals are stable. Afebrile, no tachycardia, tachypnea, or hypoxia. Rectal examination without evidence of external hemorrhoids or fissures, no active hematochezia visualized. Abdominal examination is benign. Will obtain CBC to evaluate for leukocytosis/ anemia, CMP and lipase to evaluate for abnormal electrolytes /abnormal renal function/ abnormal hepatic/biliary function, CT of the abdomen and pelvis, occult stool, and Urinalysis. Differential Diagnosis Differential Diagnoses: The differential diagnosis associated with the presentation includes (Acute on chronic cholecystitis, biliary obstruction, pancreatitis, enteritis, IBD, IBS, diverticulitis) Admission/Observation Consideration of admission/observation: Escalation of care including admission/observation considered (See narrative above in course narrative for further detail) Lab Data MDM Lab Attestation statement: I reviewed the patient's lab results. Leukopenia and macrocytic anemia without thrombocytopenia consistent with baseline. Overall unremarkable CMP. Lipase within normal limits. Urinalysis with microscopic hematuria as seen previously in October 2023 without reported gross hematuria, does not appear consistent with urinary tract infection 01/22/24 12:39 01/22/24 12:38 Labs: Lab Results 01/22/24 01/22/24 01/22/24 Range/Units 12:38 12:39 16:09 WBC 2.4 L (4.8-10.8) X10*3/uL RBC 3.53 L (4.60-5.80) X10*6/uL Hgb 11.9 L (14.0-18.0) g/dl Hct 34.3 L (42.0-52.0) % MCV 97.2 (80.0-98.0) fL MCH 33.7 H (27.0-33.0) pg MCHC 34.7 (31.0-36.0) g/dl RDW 13.3 (11.0-16.0) % Plt Count 184 (160-400) X10*3/uL MPV 9.1 L (9.4-12.4) fL Immature Gran % (Auto) 0.0 (0.0-0.4) % Neut % (Auto) 54.8 (45-73) % Lymph % (Auto) 31.4 (20-40) % Sharkey % (Auto) 9.6 (2-11) % Eos % (Auto) 3.8 (0-4) % Baso % (Auto) 0.4 (0-2) % Lymph # (Auto) 0.8 L (1.2-4.9) X10*3/uL Sharkey # (Auto) 0.2 (0.1-1.2) X10*3/uL Eos # (Auto) 0.1 (0.0-0.4) X10*3/uL Baso # (Auto) 0.0 (0.0-0.2) X10*3/uL Abs Immat Gran (auto) 0.00 (0.00-0.03) X10*3/uL Absolute Neuts (auto) 1.3 L (2.0-8.3) x10*3/uL Absolute Nucleated RBC 0.000 (0.0-0.012) X10*3/uL Nucleated RBC % (auto) 0.0 (0.0-0.2) /100WBC Smear Tech's Comments VERIFIED PT 20.2 H D (11.1-13.3) SEC INR 1.7 H (0.9-1.1) APTT 37.2 H (26.0-36.8) SEC Sodium 143 (135-145) mmol/L Potassium 3.4 (3.3-5.1) mmol/L Chloride 110 H (96-108) mmol/L Carbon Dioxide 26 (22-29) mmol/L Anion Gap 10 L (12-20) BUN 26 H (9-16) mg/dL Creatinine 0.92 (0.5-1.4) mg/dL Estim Creat Clear Calc 66.1 Estimated GFR > 60 Random Glucose 121 H (60-115) mg/dL Calcium 9.5 D (8.4-10.2) mg/dL Total Bilirubin 0.7 (0.0-1.0) mg/dL AST 16 (5-37) U/L ALT < 5 (0-40) U/L Alkaline Phosphatase 88 (39-117) U/L Total Protein 6.6 (6.5-8.0) g/dL Albumin 3.9 (3.5-5.0) g/dL Lipase 19 (8-78) U/L Urine Color Yellow Urine Appearance Clear Urine pH 6.0 (5.0-9.0) Ur Specific [place] 1.020 (1.005-1.025) Urine Protein 30 (1+) H (Neg-Trace) mg/dL Urine Glucose (UA) Negative (Negative) mg/dL Urine Ketones Negative (Negative) mg/dL Urine Blood Large (3+) H (Negative) Urine Nitrite Negative (Negative) Ur Leukocyte Esterase Small (1+) H (Negative) Urine RBC >20 H (0-2) /HPF Urine WBC 11-20 (0-5) /HPF Ur Squamous Epith Cells 3-5 (0-2) /HPF Calcium Oxalate Crystal Present Urine Bacteria None Seen (None Seen) Hyaline Casts 0-2 (0-2) /LPF Stool Occult Blood (NEGATIVE) 01/22/24 Range/Units 16:59 WBC (4.8-10.8) X10*3/uL RBC (4.60-5.80) X10*6/uL Hgb (14.0-18.0) g/dl Hct (42.0-52.0) % MCV (80.0-98.0) fL MCH (27.0-33.0) pg MCHC (31.0-36.0) g/dl RDW (11.0-16.0) % Plt Count (160-400) X10*3/uL MPV (9.4-12.4) fL Immature Gran % (Auto) (0.0-0.4) % Neut % (Auto) (45-73) % Lymph % (Auto) (20-40) % Sharkey % (Auto) (2-11) % Eos % (Auto) (0-4) % Baso % (Auto) (0-2) % Lymph # (Auto) (1.2-4.9) X10*3/uL Sharkey # (Auto) (0.1-1.2) X10*3/uL Eos # (Auto) (0.0-0.4) X10*3/uL Baso # (Auto) (0.0-0.2) X10*3/uL Abs Immat Gran (auto) (0.00-0.03) X10*3/uL Absolute Neuts (auto) (2.0-8.3) x10*3/uL Absolute Nucleated RBC (0.0-0.012) X10*3/uL Nucleated RBC % (auto) (0.0-0.2) /100WBC Smear Tech's Comments PT (11.1-13.3) SEC INR (0.9-1.1) APTT (26.0-36.8) SEC Sodium (135-145) mmol/L Potassium (3.3-5.1) mmol/L Chloride (96-108) mmol/L Carbon Dioxide (22-29) mmol/L Anion Gap (12-20) BUN (9-16) mg/dL Creatinine (0.5-1.4) mg/dL Estim Creat Clear Calc Estimated GFR Random Glucose (60-115) mg/dL Calcium (8.4-10.2) mg/dL Total Bilirubin (0.0-1.0) mg/dL AST (5-37) U/L ALT (0-40) U/L Alkaline Phosphatase (39-117) U/L Total Protein (6.5-8.0) g/dL Albumin (3.5-5.0) g/dL Lipase (8-78) U/L Urine Color Urine Appearance Urine pH (5.0-9.0) Ur Specific [place] (1.005-1.025) Urine Protein (Neg-Trace) mg/dL Urine Glucose (UA) (Negative) mg/dL Urine Ketones (Negative) mg/dL Urine Blood (Negative) Urine Nitrite (Negative) Ur Leukocyte Esterase (Negative) Urine RBC (0-2) /HPF Urine WBC (0-5) /HPF Ur Squamous Epith Cells (0-2) /HPF Calcium Oxalate Crystal Urine Bacteria (None Seen) Hyaline Casts (0-2) /LPF Stool Occult Blood NEGATIVE (NEGATIVE) Radiology Impression Discussion of test interpretation with radiology: I have reviewed the radiologist's reading. Radiologist Impression: CT/CT abdomen pelvis w IV con IMPRESSION: 1. Mildly dilated sigmoid colon concerning for sigmoid volvulus. 2. Excess amount of stool in the colon likely underlying constipation. Would recommend clinical correlation, May consider surgical evaluation, patient may benefit from decompression with enema and follow-up x-ray. 3. Complex cystic and solid structure protruding from the upper pole of the right kidney measure up to 3.9 cm, the solid component of which at the periphery about 1.2 cm. This has developed calcification which was not present on prior CT from 2018. Cannot rule out neoplasm,, recommend correlation with follow-up CT scan in 6 months. 4. Bilateral nonobstructing kidney stones. 5. There are stones in the urinary bladder. 6. Cholelithiasis. 7. Prostatomegaly, prostate impinging on the bladder floor. External Record Review External record reviewed: Inpatient record (See narrative above), Outpatient record (See narrative above) and Prior outpatient radiology (See narrative above) Discharge Plan Discharge Clinical Impression: Abdominal pain Patient Disposition: Home, Self-Care Additional Instructions: As discussed, it is possible that the structure on the right kidney may have increased in size, it is measuring approximately 3.9 x 3.4 cm, based on review of your documents regarding his prior CT scans last reviewable measurements were in November of 2021 and has increased when compared to this, please follow-up closely with your outpatient provider for further evaluation of this. Additionally, it is important that you follow-up closely with Gastroenterology at [facility] as previously planned for further management these ongoing symptoms. You may return back to emergency department with any new or worsening symptoms or concerns. Prescriptions: No Action midodrine 2.5 mg tablet 2.5 mg PO BID Qty: 60 2RF Rx Instructions: 1 tab qama nd after 4 hrs multivitamin with minerals Tablet 1 tab PO DAILY@1500 carbidopa-levodopa 25-100 mg tablet 1 tab PO BID@1200,1800 calcium citrate 250 mg calcium Tablet 250 mg PO DAILY@1500 melatonin 10 mg Tablet 10 mg PO BEDTIME donepezil 10 mg tablet 15 mg PO DAILY carbidopa-levodopa 25-100 mg tablet 1 tab PO TID@0900,1500,2100 rasagiline 1 mg tablet 1 mg PO DAILY@2000 potassium chloride 20 mEq/15 mL Liquid 20 meq PO BEDTIME quetiapine 25 mg Tablet 12.5 mg PO DAILY allopurinol 300 mg tablet 300 mg PO DAILY@1030 finasteride 5 mg tablet 5 mg PO DAILY@1800 levothyroxine 125 mcg tablet 125 mcg PO DAILY@0600 metoprolol tartrate 25 mg tablet 37.5 mg PO BID tamsulosin 0.4 mg capsule 0.4 mg PO DAILY@2000 Eliquis 5 mg tablet 5 mg PO BID B-complex with vitamin C Capsule 1 cap PO DAILY@1800 polyethylene glycol 3350 [Miralax] 17 gram/dose powder 17 g PO DAILY@0830 quetiapine 25 mg tablet See Rx Instructions PO .COMPLEX Qty: 180 6RF Rx Instructions: 1/2 tab bid orally bid omeprazole 20 mg capsule,delayed release(DR/EC) 20 mg PO DAILY ursodiol 250 mg tablet 250 mg PO TID 90 Days Qty: 270 1RF Referrals: Alex Mitchell MD [Primary Care Provider] - Interventions: ED Discharge Assessment Last Done: 01/22/24 20:32 Discharge Date/Time: 01/22/24 20:33
[2024-01-22 12:45] LABS: Basophils Percent Auto 0.4 % (0-2); Eosinophils Absolute Auto 0.1 X10*3/uL (0.0-0.4); Eosinophils Percent Auto 3.8 % (0-4); Hematocrit 34.3 % (42.0-52.0); Hemoglobin 11.9 g/dl (14.0-18.0); Lymphocytes Absolute Auto 0.8 X10*3/uL (1.2-4.9); Lymphocytes Percent Auto 31.4 % (20-40); MANUAL DIFF FLAG SCAN; Mean Corpuscular HGB Conc 34.7 g/dl (31.0-36.0); Mean Corpuscular Hemoglobin 33.7 pg (27.0-33.0); Mean Corpuscular Volume 97.2 fL (80.0-98.0); Mean Platelet Volume 9.1 fL (9.4-12.4); Monocytes Absolute Auto 0.2 X10*3/uL (0.1-1.2); Monocytes Percent Auto 9.6 % (2-11); Neutrophils Absolute Auto 1.3 x10*3/uL (2.0-8.3); Neutrophils Percent Auto 54.8 % (45-73); Platelet Count 184 X10*3/uL (160-400); Red Blood Count 3.53 X10*6/uL (4.60-5.80); Red Cell Distribution Width 13.3 % (11.0-16.0); SCAN SMEAR FLAG 1
[2024-01-22 12:53] LABS: INTERNATIONAL NORM RATIO 1.7 (0.9-1.1); Prothrombin Time 20.2 SEC (11.1-13.3)
[2024-01-22 12:56] LABS: Partial Thromboplastin Time 37.2 SEC (26.0-36.8)
[2024-01-22 13:00] LABS: White Blood Count 2.4 X10*3/uL (4.8-10.8)
[2024-01-22 13:02] LABS: Alanine Aminotransferase < 5 U/L (0-40); Albumin Level 3.9 g/dL (3.5-5.0); Alkaline Phosphatase 88 U/L (39-117); Anion Gap 10 (12-20); Aspartate Amino Transferase 16 U/L (5-37); Bilirubin Total 0.7 mg/dL (0.0-1.0); Blood Urea Nitrogen 26 mg/dL (9-16); Calcium 9.5 mg/dL (8.4-10.2); Carbon Dioxide 26 mmol/L (22-29); Chloride 110 mmol/L (96-108); Creatinine Clr Calc Pharmacy 66.1; Estimated Glomerular Filt Rate > 60; Glucose Random 121 mg/dL (60-115); Lipase 19 U/L (8-78); Potassium 3.4 mmol/L (3.3-5.1); Sodium 143 mmol/L (135-145); Total Protein 6.6 g/dL (6.5-8.0)
[2024-01-22 13:12] LABS: SLIDE REVIEW VERIFIED
[2024-01-22 16:24] LABS: Appearance Urine Clear; Color Urine Yellow; Glucose Urine UA Negative (Negative); Leukocyte Esterase Urine Small (1+) (Negative); Nitrite Urine Negative (Negative); UMIC TRIGGER UACC YES; Urine Blood Large (3+) (Negative); Urine Ketones Negative (Negative); Urine Protein 30 (1+) mg/dL (Neg-Trace)
[2024-01-22 16:40] LABS: Bacteria Urine None Seen (None Seen); Calcium Oxalate Crystals Urine Present; Hyaline Casts Urine 0-2 /LPF (0-2); RBC Urine >20 /HPF (0-2); UACC Culture Trigger YES
[2024-01-22] MEDS: iohexoL 350 MG/ML 100 ML INFUS..BTL IV (16:55)
[2024-01-22] MEDS: 0.9 % Sodium Chloride 1,000 ML 999 ML IV (16:58)
[2024-01-22 17:37] LABS: OBS Int Ctl Valid YES; OBS1 NEGATIVE (NEGATIVE)
[2024-01-22 19:27] VITALS: BP 140/70; PULSE 82; RESP 21; TEMP 36.3
[2024-01-22 20:32] VITALS: BP 159/71; PULSE 71; RESP 16; TEMP 36.6; O2SAT 99
== END 2024-01-22 20:33 | disposition home or self-care (01) ==
PROVIDERS: Nurse Practitioner Family; Physician Assistant; Emergency Provider Emergency Medicine Emergency Medical Services; PCP Internal Medicine
DX: N20.0 Calculus of kidney (principal); R10.2 Pelvic and perineal pain; R11.2 Nausea with vomiting, unspecified; Z79.899 Other long term (current) drug therapy
CPT/HCPCS: 36415; 74177; 80053; 81001; 82272; 83690; 85025; 85610; 85730; 87086; 96360; 96361; 99284; Q9967

== ENCOUNTER 2024-03-25 01:08 | Emergency (ER) | payer OTHER, SELFPAY ==
--- NOTE | ~2024-03-25 | CT_ITS ---
EXAMINATION: CT ABDOMEN AND PELVIS WITH CONTRAST CLINICAL INFORMATION: Lower abdominal discomfort and distention COMPARISON: 01/22/2024 TECHNIQUE: Multidetector volumetric images were obtained from the superior aspect of the liver through the pubic symphysis following administration 85 mL of Omnipaque 350 intravenous contrast. Sagittal and coronal reformatted images were obtained on the technologist's workstation. Oral contrast: No This CT examination was performed using dose optimization techniques as appropriate, variously including the following: *Automated exposure control *Adjustment of mA and/or kV according to patient size (this includes techniques or standardized protocols for targeted exams where dose is matched to indication/reason for exam; i.e. extremities or head) *Use of iterative reconstruction technique DLP: 582 mGy-cm FINDINGS: LUNG BASES: Minimal dependent atelectasis. Coronary artery calcifications are present. LIVER, GALLBLADDER, AND BILIARY TREE: The liver is normal in size, shape, and attenuation. Redemonstrated small cyst in the inferior right hepatic lobe with mild peripheral calcification. No biliary ductal dilatation is present. The gallbladder is mildly distended with cholelithiasis suspected. PANCREAS: Unremarkable. SPLEEN: Unremarkable. ADRENAL GLANDS: Somewhat thickened appearance of the adrenal glands, without discrete nodularity. KIDNEYS AND URETERS: Bilateral nephrograms are symmetric. No hydronephrosis or obstructing calculus identified. Extensive bilateral renal calcifications are again demonstrated. A few bilateral renal cysts are again noted; no follow-up recommended. There is a redemonstrated mixed cystic and solid structure in the upper pole of the right kidney measuring up to approximately 3.5 cm in total diameter on coronal image 64; as previously noted on recent prior exam, this could be neoplastic in nature. BLADDER: Partially distended with several dependent calcifications along the posterior left aspect. GASTROINTESTINAL TRACT: Small bowel is nondilated. Moderate to large amount of stool is present in the ascending, transverse, and descending colon. There is prominent gaseous distention of much of the sigmoid colon which appears overall mildly increased from 01/22/2024. No twisting is seen to specifically indicate volvulus. Fluid is present in the rectum. The appendix is unremarkable. No free fluid or free air is seen. ABDOMINAL WALL: Small fat-containing inguinal hernias. LYMPH NODES: Normal. VASCULAR: There is atherosclerotic calcification along the aorta. PELVIC VISCERA: Coarse calcifications in the prostate. OSSEOUS STRUCTURES: Degenerative changes are noted in the spine. CT/CT abdomen pelvis w IV con IMPRESSION: 1. Prominent gaseous distention of much of the sigmoid colon, overall mildly increased from 01/22/2024. No twisting is seen to specifically indicate volvulus at this time, though the possibility of recent sigmoid volvulus with spontaneous resolution cannot be excluded. Additional considerations could include colonic ileus or pseudoobstruction. Moderate to large volume of stool. 2. Redemonstrated mixed cystic and solid structure in the upper pole of the right kidney, which could be neoplastic in nature. As noted on recent prior examination, follow-up renal protocol CT in approximately 6 months would be helpful for further evaluation. 3. Redemonstrated bilateral renal calculi and multiple stones in the bladder.
[2024-03-25 01:13] VITALS: BP 135/80; BP 140/71; PULSE 64; PULSE 75; RESP 17; TEMP 36.6; O2SAT 99; BMI 25.7
[2024-03-25 01:32] LABS: MANUAL DIFF FLAG NO
[2024-03-25 01:33] LABS: Basophils Percent Auto 0.9 % (0-2); Eosinophils Absolute Auto 0.2 X10*3/uL (0.0-0.4); Eosinophils Percent Auto 5.2 % (0-4); Hematocrit 32.5 % (42.0-52.0); Hemoglobin 11.1 g/dl (14.0-18.0); Imm Gran Abs Auto 0.01 X10*3/uL (0.00-0.03); Imm Gran Pct Auto 0.3 % (0.0-0.4); Lymphocytes Absolute Auto 1.1 X10*3/uL (1.2-4.9); Lymphocytes Percent Auto 33.5 % (20-40); Mean Corpuscular HGB Conc 34.2 g/dl (31.0-36.0); Mean Corpuscular Hemoglobin 34.7 pg (27.0-33.0); Mean Corpuscular Volume 101.6 fL (80.0-98.0); Mean Platelet Volume 9.1 fL (9.4-12.4); Monocytes Absolute Auto 0.4 X10*3/uL (0.1-1.2); Monocytes Percent Auto 11.1 % (2-11); Neutrophils Absolute Auto 1.6 x10*3/uL (2.0-8.3); Platelet Count 191 X10*3/uL (160-400); Red Cell Distribution Width 13.6 % (11.0-16.0); White Blood Count 3.3 X10*3/uL (4.8-10.8)
[2024-03-25 01:50] LABS: Alanine Aminotransferase 18 U/L (0-40); Alkaline Phosphatase 78 U/L (39-117); Anion Gap 14 (12-20); Aspartate Amino Transferase 23 U/L (5-37); Bilirubin Total 0.6 mg/dL (0.0-1.0); Blood Urea Nitrogen 30 mg/dL (9-16); Calcium 9.6 mg/dL (8.4-10.2); Carbon Dioxide 25 mmol/L (22-29); Chloride 107 mmol/L (96-108); Creatinine Clr Calc Pharmacy 57.1; Estimated Glomerular Filt Rate > 60; Glucose Random 119 mg/dL (60-115); Lipase 37 U/L (8-78); Potassium 3.6 mmol/L (3.3-5.1); Sodium 142 mmol/L (135-145); Total Protein 6.5 g/dL (6.5-8.0)
--- NOTE | 2024-03-25 02:48 | ED.GENADULT ---
HPI - General Adult General Chief complaint: Abdominal Pain Stated complaint: Abdominal Pain Time Seen by Provider: 03/25/24 02:48 History of Present Illness HPI narrative: The patient is a 78-year-old male with Parkinson's as well as dementia, also atrial fibrillation on apixaban, who lives at home with his . The patient has had a lot of bowel issues over the last for years. His says he has not had a solid bowel movement in 4 years. He has chronic loose stools. The patient was hospitalized in October of this year for abdominal pain and was found to have biliary dyskinesia. The patient came to the emergency room 2 months ago for apparent right upper quadrant abdominal pain. He had a CT scan that was read as possibly suggestive of sigmoid volvulus but clinically that did not seem likely and the patient was discharged to increase his bowel regimen out of concern for possible significant constipation. According to the patient's the patient has had a more distended abdomen over the last few days and may have been having some lower abdominal discomfort. However she says he has been eating and has been passing stools in his usual manner. [place] the called the patient's policy loan calculator and was advised to come to the emergency room. The patient has a history of dementia and is a poor historian. Related Data Home Medications ?Medication ?Instructions ?Recorded ?Confirmed allopurinol 300 mg tablet 300 mg PO DAILY@1030 11/10/22 01/09/24 finasteride 5 mg tablet 5 mg PO DAILY@179911/10/22 01/09/24 levothyroxine 125 mcg tablet 125 mcg PO DAILY@0611/10/22 01/09/24 tamsulosin 0.4 mg capsule 0.4 mg PO DAILY@199911/10/22 01/09/24 B-complex with vitamin C 1 cap PO DAILY@1800 11/15/22 01/09/24 apixaban 5 mg tablet (Eliquis) 5 mg PO BID 11/15/22 01/09/24 polyethylene glycol 3350 17 17 g PO DAILY@0830 11/15/22 01/09/24 gram/dose oral powder (Miralax) calcium citrate 250 mg PO DAILY@1500 11/23/23 01/09/24 carbidopa 25 mg-levodopa 100 mg 1 tab PO BID@1200,1800 11/23/23 01/09/24 tablet carbidopa 25 mg-levodopa 100 mg 1 tab PO TID@0900,1500,2100 11/23/23 01/09/24 tablet donepezil 10 mg tablet 15 mg PO DAILY 11/23/23 01/09/24 melatonin 10 mg tablet 10 mg PO BEDTIME 11/23/23 01/09/24 multivitamin with minerals 1 tab PO DAILY@1500 11/23/23 01/09/24 potassium chloride 20 mEq/15 mL 20 meq PO BEDTIME 11/23/23 01/09/24 oral liquid quetiapine 25 mg tablet 12.5 mg PO DAILY 11/23/23 01/09/24 rasagiline 1 mg tablet 1 mg PO DAILY@199911/23/23 01/09/24 omeprazole 20 mg capsule,delayed 20 mg PO DAILY 01/02/24 01/09/24 release Previous Rx's ?Medication ?Instructions ?Recorded ursodiol 250 mg tablet 250 mg PO TID 90 days #270 tabs 01/02/24 midodrine 2.5 mg tablet 2.5 mg PO BID #60 tabs 01/08/24 quetiapine 25 mg tablet See Rx Instructions PO .COMPLEX 01/09/24 #180 tabs sertraline 25 mg tablet 25 mg PO DAILY 30 days #30 tabs 02/01/24 Allergies Allergy/AdvReac Type Severity Reaction Status Date / Time cat dander Allergy Mild Unknown Verified 03/25/24 01:17 Review of Systems Review of Systems: Yes all other systems are reviewed and are negative PMFSH Past Medical History Medical History Parkinson's disease with fluctuating manifestations Anxiety Spasmodic torticollis Neck pain ODILIA on CPAP Atrial fibrillation Arthritis Borderline hyperlipidemia Prostate enlargement Prediabetes Surgical History Hx of colonoscopy H/O neck surgery Status post cryoablation H/O lithotripsy Social History Social History Household Members: Spouse Housing: House Alcohol intake: current Alcohol intake frequency: holidays/special occasions only Patient Tobacco Use Status: Never used Tobacco Smoked in Last 30 Days: No Advance Directives: Yes Advance Directives on File: Yes Advance Directives Date on File: 11/29/23 Do you have a plan to hurt others: No Plan service: Yes Physical Exam ED Vital Signs: Vital Signs - 24 hr 03/25/24 01:13 03/25/24 03:53 03/25/24 07:07 Temperature 97.9 F 97.8 F 97.8 F Pulse Rate 75 86 86 Respiratory Rate 17 17 17 Blood Pressure 140/71 H 151/73 H 151/73 H Pulse Oximetry 99 98 98 Oxygen Delivery Method Room Air Room Air Room Air BMI result Body Mass Index 25.7 Const Other: The patient is a chronically ill-appearing 78-year-old male who was awake and alert although he seems demented. He does not seem in obvious acute distress. HENMT Other: Face is symmetrical. Mucous membranes moist. Medications Administered Discontinued Medications Generic Name Dose Route Start Last Admin Trade Name Freq PRN Reason Stop Dose Admin Iohexol 85 ml 03/25/24 03:43 03/25/24 03:43 Iohexol 350 Mg/Ml 100 Ml Infus..Btl IV 03/25/24 03:44 85 ml ONCE ONE Administration Medical Decision Making Medical Decision Making [facility] Narrative: The patient is a 78-year-old male with Parkinson's disease who presents with abdominal distention and possibly lower abdominal discomfort. When I spoke to the patient he denied having any ongoing discomfort although he had some seeming tenderness in the lower abdomen. A CT scan was done which again shows a very large sigmoid colon. No definite signs of volvulus. Clinically the patient does not seem toxic. His labs are reassuring. I discussed the case with the on-call policy loan calculator who felt that this seemed more like a case of chronic pseudo-obstruction related to his Parkinson's. Ultimately the asked to take the patient home. I think this is reasonable. I think this is more of a subacute, chronic problem than an acute problem. The patient has regular policy loan calculator is at [facility]. The patient will be discharged with instructions to continue his bowel regimen and to continue to work with their regular policy loan calculator. Lab Data 03/25/24 01:27 03/25/24 01:27 Labs: Lab Results 03/25/24 03/25/24 Range/Units 01:27 03:47 WBC 3.3 L (4.8-10.8) X10*3/uL RBC 3.20 L (4.60-5.80) X10*6/uL Hgb 11.1 L (14.0-18.0) g/dl Hct 32.5 L (42.0-52.0) % MCV 101.6 H (80.0-98.0) fL MCH 34.7 H (27.0-33.0) pg MCHC 34.2 (31.0-36.0) g/dl RDW 13.6 (11.0-16.0) % Plt Count 191 (160-400) X10*3/uL MPV 9.1 L (9.4-12.4) fL Immature Gran % (Auto) 0.3 (0.0-0.4) % Neut % (Auto) 49.0 (45-73) % Lymph % (Auto) 33.5 (20-40) % Archer % (Auto) 11.1 H (2-11) % Eos % (Auto) 5.2 H (0-4) % Baso % (Auto) 0.9 (0-2) % Lymph # (Auto) 1.1 L (1.2-4.9) X10*3/uL Archer # (Auto) 0.4 (0.1-1.2) X10*3/uL Eos # (Auto) 0.2 (0.0-0.4) X10*3/uL Baso # (Auto) 0.0 (0.0-0.2) X10*3/uL Abs Immat Gran (auto) 0.01 (0.00-0.03) X10*3/uL Absolute Neuts (auto) 1.6 L (2.0-8.3) x10*3/uL Absolute Nucleated RBC 0.000 (0.0-0.012) X10*3/uL Nucleated RBC % (auto) 0.0 (0.0-0.2) /100WBC Sodium 142 (135-145) mmol/L Potassium 3.6 (3.3-5.1) mmol/L Chloride 107 (96-108) mmol/L Carbon Dioxide 25 (22-29) mmol/L Anion Gap 14 (12-20) BUN 30 H (9-16) mg/dL Creatinine 1.03 (0.5-1.4) mg/dL Estim Creat Clear Calc 57.1 Estimated GFR > 60 Random Glucose 119 H (60-115) mg/dL Calcium 9.6 (8.4-10.2) mg/dL Total Bilirubin 0.6 (0.0-1.0) mg/dL AST 23 (5-37) U/L ALT 18 (0-40) U/L Alkaline Phosphatase 78 (39-117) U/L C-Reactive Protein < 0.10 (< or = 0.50) mg/dL Total Protein 6.5 (6.5-8.0) g/dL Albumin 4.0 (3.5-5.0) g/dL Lipase 37 (8-78) U/L Urine Color Dark Yellow Urine Appearance Cloudy Urine pH 5.5 (5.0-9.0) Ur Specific [place] >= 1.030 H (1.005-1.025) Urine Protein Trace (Neg-Trace) mg/dL Urine Glucose (UA) Negative (Negative) mg/dL Urine Ketones Negative (Negative) mg/dL Urine Blood Large (3+) H (Negative) Urine Nitrite Negative (Negative) Ur Leukocyte Esterase Moderate (2+) H (Negative) Urine RBC 11-20 H (0-2) /HPF Urine WBC 6-10 (0-5) /HPF Ur Squamous Epith Cells 0-2 (0-2) /HPF Calcium Oxalate Crystal Present Urine Bacteria 1+ (None Seen) Hyaline Casts 0-2 (0-2) /LPF Discharge Plan Discharge Clinical Impression: Abdominal distension, Parkinson disease, Chronic pseudo-obstruction of colon Patient Disposition: Home, Self-Care Additional Instructions: I spoke with the on-call policy loan calculator here [place]. We believe that he most likely has a chronic pseudo-obstruction of his colon. This does not seem to be a volvulus or an acute pseudo-obstruction. Please continue the MiraLax and Colace. Please contact your regular policy loan calculator to discuss strategies for managing this condition. Return to the emergency room if worse. Prescriptions: No Action midodrine 2.5 mg tablet 2.5 mg PO BID Qty: 60 2RF Rx Instructions: 1 tab qama nd after 4 hrs sertraline 25 mg tablet 25 mg PO DAILY 30 Days Qty: 30 3RF multivitamin with minerals Tablet 1 tab PO DAILY@1500 carbidopa-levodopa 25-100 mg tablet 1 tab PO BID@1200,1800 calcium citrate 250 mg calcium Tablet 250 mg PO DAILY@1500 melatonin 10 mg Tablet 10 mg PO BEDTIME donepezil 10 mg tablet 15 mg PO DAILY carbidopa-levodopa 25-100 mg tablet 1 tab PO TID@0900,1500,2100 rasagiline 1 mg tablet 1 mg PO DAILY@2000 potassium chloride 20 mEq/15 mL Liquid 20 meq PO BEDTIME quetiapine 25 mg Tablet 12.5 mg PO DAILY allopurinol 300 mg tablet 300 mg PO DAILY@1030 finasteride 5 mg tablet 5 mg PO DAILY@1800 levothyroxine 125 mcg tablet 125 mcg PO DAILY@0600 tamsulosin 0.4 mg capsule 0.4 mg PO DAILY@2000 Eliquis 5 mg tablet 5 mg PO BID B-complex with vitamin C Capsule 1 cap PO DAILY@1800 polyethylene glycol 3350 [Miralax] 17 gram/dose powder 17 g PO DAILY@0830 quetiapine 25 mg tablet See Rx Instructions PO .COMPLEX Qty: 180 6RF Rx Instructions: 1/2 tab bid orally bid omeprazole 20 mg capsule,delayed release(DR/EC) 20 mg PO DAILY ursodiol 250 mg tablet 250 mg PO TID 90 Days Qty: 270 1RF Interventions: ED Discharge Assessment Last Done: 03/25/24 07:07 Discharge Date/Time: 03/25/24 07:13 Print Language: Fijian
[2024-03-25 03:15] LABS: C Reactive Protein < 0.10 mg/dL (< or = 0.50)
[2024-03-25] MEDS: iohexoL 350 MG/ML 100 ML INFUS..BTL 85 ML IV (03:43)
[2024-03-25 03:53] VITALS: BP 151/73; PULSE 86; RESP 17; TEMP 36.6; O2SAT 98
[2024-03-25 04:30] LABS: Appearance Urine Cloudy; Color Urine Dark Yellow; Glucose Urine UA Negative (Negative); Leukocyte Esterase Urine Moderate (2+) (Negative); Nitrite Urine Negative (Negative); PH 5.5 (5.0-9.0); Specific Gravity - Urine >= 1.030 (1.005-1.025); UMIC TRIGGER UACC YES; Urine Blood Large (3+) (Negative); Urine Ketones Negative (Negative); Urine Protein Trace mg/dL (Neg-Trace)
[2024-03-25 04:47] LABS: UACC Culture Trigger YES
[2024-03-25 04:48] LABS: Bacteria Urine 1+ (None Seen); Calcium Oxalate Crystals Urine Present; Hyaline Casts Urine 0-2 /LPF (0-2); Squamous Epithelial Cell Urine 0-2 /HPF (0-2)
[2024-03-25 07:07] VITALS: BP 151/73; PULSE 86; RESP 17; TEMP 36.6; O2SAT 98
== END 2024-03-25 07:13 | disposition home or self-care (01) ==
PROVIDERS: Emergency Provider Emergency Medicine
DX: K59.89 Other specified functional intestinal disorders (principal); R14.0 Abdominal distension (gaseous); G20.A1 Parkinson's disease without dyskinesia, without mention of fluctuations; I48.91 Unspecified atrial fibrillation; Z79.899 Other long term (current) drug therapy; F03.90 Unspecified dementia, unspecified severity, without behavioral disturbance, psychotic disturbance, mood disturbance, and anxiety
CPT/HCPCS: 36415; 74177; 80053; 81001; 81003; 83690; 85025; 86140; 87086; 87088; 87186; 99284; Q9967

== ENCOUNTER 2024-04-15 14:41 | Outpatient (AMB) | payer OTHER, SELFPAY ==
--- NOTE | 2024-04-15 14:56 | A.OFFVIS_ITS ---
Vital Signs 04/15/24 15:05 Height 5 ft 9 in Weight 160 lb BMI 23.6 BP 98/62 Blood Pressure Location Rt brachial Position Sitting Respiration 16 Pulse 78 Pulse Source Pulse Oximeter Pulse Oximetry (%) 98 Oxygen Delivery Method Room Air Intake Visit Reasons: Parkinsons disease [place] Psychiatrist Required: No Allergies cat dander Allergy (Mild, Verified 04/15/24 14:56) Unknown HPI Comments Details: 79y/o Right handed male calls for follow up of Parkinsons disease.He was sai eduled for botox to his neck but he feels his swallowing is worse and does not want to continue with botox He is accompanied by his Adele. He is exercising 2 days a week and drinking 70 oz per day . He stopped nuplazid - his did not feel it helped. His mood is stable . Denies hallucinations No falls, He reports nausea History-He noticed shuffling about 6 years ago and it has progressively worsened since then and was diagnosed with parkinsons disease by Dr. Judge .He also has tremors are mostly at rest . He reports mild memory issues. Sleep is ok . He frequently talks in his sleep. No screaming or acting out dreams . He takes occasional daytime naps. He has mild depression and less motivated. He speech is softer or he has occasional drooling . He has difficulty with hand writing, using utensils, needs help with dressing , needs help with shower. He has trouble turning in bed, has trouble lifting his legs. He has trouble getting out of car. He goes to [facility] for 2 classes/week His gait is slow and mildly off balance No falls. No dizziness , no double vision . He has loose stools and mild urgency . [facility] Medical History (Updated 04/15/24 @ 15:21 by Raven Cade MD) Orthostatic hypotension Parkinson's disease with fluctuating manifestations Anxiety Spasmodic torticollis Neck pain ODILIA on CPAP Atrial fibrillation Arthritis Borderline hyperlipidemia Prostate enlargement Prediabetes Surgical History Hx of colonoscopy H/O neck surgery Status post cryoablation H/O lithotripsy Social History Household Members: Spouse Housing: House Alcohol intake: current Alcohol intake frequency: holidays/special occasions only Patient Tobacco Use Status: Never used Tobacco Advance Directives Date on File: 11/29/23 service: Yes Physical Exam Vital Signs: Last Vital Signs Pulse 78 04/15/24 15:05 Resp 16 04/15/24 15:05 BP 98/62 04/15/24 15:05 Pulse Ox 98 04/15/24 15:05 Oxygen Delivery Method Room Air 04/15/24 15:05 BMI result Body Mass Index 23.6 Const Orientation/consciousness: patient oriented x3 Neuro Other: antecollis, right laterocollis, left torticollis no tremors Moderately decreased facial expression , blink Tongue movements are slow Cogwheel rigidity 2+ RUE 1 + LUE FFM and foot taps moderately decreased R>L Gait - slow, stooped , tilted to right , decreased arm swings r>L Hypophonia General: patient oriented x3 Cranial nerves: Yes Facial sensation intact/muscles of mastication intact, Yes Bilaterally intact EOM present, Yes Nystagmus not present, Yes Normal facial strength present, Yes Midline tongue present and Yes Symmetric palate elevation present Motor exam (neuro): 5/5 motor strength present throughout Coordination: [id number] test normal Psych Affect: Depressed mood present Assessment & Plan Assessment & Plan (1) Parkinson's disease with fluctuating manifestations: Code(s): G20.A2 - Parkinson's disease without dyskinesia, with fluctuations Category: Medical (2) Orthostatic hypotension: Code(s): I95.1 - Orthostatic hypotension Category: Medical Plan Increase sinemet 25/100 1 tab 6 times a day Midodrine 10-10-5 Rasagiline 1mg qd Increase fluid intake Coding Level of Care Code Est Pt Level 4 (99516) Complex EM visit Add On G2211 Diagnoses Parkinson's disease with fluctuating manifestations G20.A2 Orthostatic hypotension I95.1
[2024-04-15 15:05] VITALS: BP 98/62; PULSE 78; RESP 16; O2SAT 98; BMI 23.6
== END 2024-04-15 15:54 | disposition home or self-care (01) ==
PROVIDERS: PCP Internal Medicine; Visit Provider Psychiatry & Neurology Neurology
DX: G20.A2 Parkinson's disease without dyskinesia, with fluctuations (principal); I95.1 Orthostatic hypotension
CPT/HCPCS: 99214; G2211

== ENCOUNTER → 2024-04-15 14:41 | Outpatient (BNVA) | payer OTHER, SELFPAY | PROVIDERS: PCP Internal Medicine; Visit Provider Psychiatry & Neurology Neurology ==

== ENCOUNTER → 2024-08-29 10:41 | Outpatient (BNV) | payer OTHER, SELFPAY | PROVIDERS: Emergency Provider Emergency Medicine Emergency Medical Services; PCP Internal Medicine; Visit Provider Radiology Diagnostic Radiology | DX: R45.1 Restlessness and agitation (principal) | CPT/HCPCS: 71045 ==

== ENCOUNTER → 2024-08-29 10:58 | Outpatient (BNV) | payer OTHER, SELFPAY | PROVIDERS: Emergency Provider Emergency Medicine Emergency Medical Services; PCP Internal Medicine; Visit Provider Internal Medicine | DX: R94.31 Abnormal electrocardiogram [ECG] [EKG] (principal) | CPT/HCPCS: 93010 ==

== ENCOUNTER 2024-08-29 11:00 | Emergency (ER) | payer OTHER, SELFPAY ==
[2024-08-29] VITALS (10 sets, daily range): BP systolic 103–140; BP diastolic 60–90; PULSE 63–82; RESP 16–20; TEMP 36.2–36.9; O2SAT 95–100; BMI 20.6
--- NOTE | ~2024-08-29 | CT_ITS ---
EXAMINATION: CT ABDOMEN AND PELVIS WITH CONTRAST CLINICAL INFORMATION: Diffuse abdominal pain. COMPARISON: March 25, 2024 and January 22, 2024 TECHNIQUE: Multidetector volumetric images were obtained from the superior aspect of the liver through the pubic symphysis following administration 85 mL of Omnipaque 350 intravenous contrast. Sagittal and coronal reformatted images were obtained on the technologist's workstation. Oral contrast: No This CT examination was performed using dose optimization techniques as appropriate, variously including the following: *Automated exposure control *Adjustment of mA and/or kV according to patient size (this includes techniques or standardized protocols for targeted exams where dose is matched to indication/reason for exam; i.e. extremities or head) *Use of iterative reconstruction technique DLP: 825 mGy-cm FINDINGS: LUNG BASES: No pleural or pericardial effusion. Cardiac enlargement. Small pericardial effusion. LIVER, GALLBLADDER, AND BILIARY TREE: The liver is normal in size and contour. Stable hepatic cyst with peripheral calcification. No suspicious hepatic lesion or biliary ductal dilatation is present. Marked gallbladder distention. Gallstone. PANCREAS: Atrophic. Diffusely prominent duct up to 3 mm. SPLEEN: Not enlarged. ADRENAL GLANDS: No adrenal mass. KIDNEYS AND URETERS: The kidneys are symmetric in size and enhancement. There is a cystic and solid lesion medial upper pole right kidney measuring 3.4 x 2.8 x 3.5 cm. There is an inferior solid enhancing soft tissue component. Multiple bilateral renal calcifications that are not obstructing. No perinephric fluid collection. No hydronephrosis. BLADDER: Multiple dependent calculi. GASTROINTESTINAL TRACT: Gastric wall thickening despite underdistention. No small bowel obstruction. Marked fecal impaction in the colon. Appendix is within normal limits. There is gaseous distention of the sigmoid colon up to 9 cm improved compared with March 17, 2024. ABDOMINAL WALL: No significant hernia is appreciated. LYMPH NODES: No bulky lymphadenopathy. VASCULAR: Normal caliber abdominal aorta. Calcification at the origins of the renal arteries. PELVIC VISCERA: Enlarged prostate gland. Presacral stranding and edema. OSSEOUS STRUCTURES: There is a new compression fracture of T12. CT/CT abdomen pelvis w IV con IMPRESSION: New T12 compression fracture. Advise correlation with MRI thoracic spine. Gastric wall thickening despite underdistention. Increase in gallbladder distention with cholelithiasis. Stable mixed cystic and solid lesion upper pole right kidney measuring 3.4 x 2.8 x 3.5 cm possibly representing neoplasm. Renal protocol CT or MRI may be considered. Extensive bilateral nephrolithiasis without hydronephrosis. Multiple bladder calculi. Small pericardial effusion. Electronically signed by: Britton Strange MD 08/29/2024 03:37 PM EDT
--- NOTE | ~2024-08-29 | XR_ITS ---
EXAMINATION: XR CHEST CLINICAL INFORMATION: Agitation. COMPARISON: 11/23/2023. TECHNIQUE: AP portable view of the chest was obtained. FINDINGS: Left-sided single-lead pacer device in place with lead extending into the right ventricle apex. Patient's chin obscures the medial apices. Within the confines of technique, the lungs are clear bilaterally. No pneumothorax or effusion. No consolidation. Stable right perihilar scarring. The heart appears mildly enlarged. The aorta is mildly calcified but normal in contour. Hilar contours and mediastinal contours are normal. Degenerative changes noted both shoulder joints and AC joints, as well as the spine with a mild associated dextroconvex scoliosis, possibly positional. No soft tissue abnormalities. XR/XR chest 1V IMPRESSION: 1. Exam limitations as detailed. 2. No active pulmonary disease. 3. Cardiomegaly with pacemaker. Electronically signed by: Colin Newman MD 08/29/2024 03:11 PM EDT
--- NOTE | ~2024-08-29 | CT_ITS ---
EXAMINATION: CT HEAD WITHOUT CONTRAST CLINICAL INFORMATION: Altered mental status COMPARISON: None available. TECHNIQUE: Contiguous axial imaging was performed from the skull base to vertex without intravenous administration of contrast. This CT examination was performed using dose optimization techniques as appropriate, variously including the following: *Automated exposure control *Adjustment of mA and/or kV according to patient size (this includes techniques or standardized protocols for targeted exams where dose is matched to indication/reason for exam; i.e. extremities or head) *Use of iterative reconstruction technique DLP: 799 mGy-cm RESULTS: There is no evidence of acute intracranial hemorrhage, acute large vessel infarct, midline shift or mass effect. The roblero-white differentiation is preserved. There are patchy periventricular and subcortical white matter changes, which are nonspecific, but likely represent chronic microangiopathic change in a patient of this age. The ventricles and sulci are moderately prominent consistent with age related volume loss. There are no extraaxial collections. Osseous structures are intact. Paranasal sinuses and mastoid air cells are well aerated. CT/CT head/brain wo IV con IMPRESSION: 1. No acute intracranial pathology. 2. Chronic volume loss and microangiopathic change. Electronically signed by: Tabatha Lira MD 08/29/2024 03:17 PM EDT
[2024-08-29] MEDS: OLANZapine 10 MG VIAL 5 MG IM (10:38)
--- NOTE | 2024-08-29 10:46 | ED_ITS ---
HPI - General Adult General Chief complaint: Behavioral Concerns Stated complaint: INCREASED AGGRESSION,HX PARKINSON'S Time Seen by Provider: 08/29/24 10:28 Source: patient, EMS, RN notes reviewed, old records reviewed and other Mode of arrival: EMS Limitations: other History of Present Illness ED Provider: Katiana Farris PA-C HPI narrative: 79-year-old male with a past medical history orthostatic hypotension, Parkinson's disease, dementia, anxiety, spasmodic torticollis, ODILIA on CPAP, AFib on Eliquis, arthritis, HLD, presenting to the ED via EMS with increased agitation with aggressive behavior x this morning, kicking and punching which is not his baseline. 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 No reported fever, nausea/vomiting, diarrhea constipation, falls Related Data Home Medications ?Medication ?Instructions ?Recorded ?Confirmed allopurinol 300 mg tablet 300 mg PO DAILY@1030 11/10/22 01/09/24 finasteride 5 mg tablet 5 mg PO DAILY@179911/10/22 01/09/24 levothyroxine 125 mcg tablet 125 mcg PO DAILY@0611/10/22 01/09/24 tamsulosin 0.4 mg capsule 0.4 mg PO DAILY@199911/10/22 01/09/24 B-complex with vitamin C 1 cap PO DAILY@179911/15/22 01/09/24 apixaban 5 mg tablet (Eliquis) 5 mg PO BID 11/15/22 01/09/24 polyethylene glycol 3350 17 17 g PO DAILY@0830 11/15/22 01/09/24 gram/dose oral powder (Miralax) calcium citrate 250 mg PO DAILY@1500 11/23/23 01/09/24 carbidopa 25 mg-levodopa 100 mg 1 tab PO BID@1200,1800 11/23/23 01/09/24 tablet melatonin 10 mg tablet 10 mg PO BEDTIME 11/23/23 01/09/24 multivitamin with minerals 1 tab PO DAILY@149911/23/23 01/09/24 potassium chloride 20 mEq/15 mL 20 meq PO BEDTIME 11/23/23 01/09/24 oral liquid rasagiline 1 mg tablet 1 mg PO DAILY@199911/23/23 01/09/24 omeprazole 20 mg capsule,delayed 20 mg PO DAILY 01/02/24 01/09/24 release midodrine 2.5 mg tablet 10 mg PO BID 04/15/24 Previous Rx's ?Medication ?Instructions ?Recorded ursodiol 250 mg tablet 250 mg PO TID 90 days #270 tabs 01/02/24 nitrofurantoin 100 mg PO Q12H 5 days #10 caps 03/29/24 monohydrate/macrocrystals 100 mg capsule (Macrobid) metoclopramide HCl 5 mg tablet 5 mg PO QID PRN nausea and 04/18/24 vomiting 14 days #28 tabs lisinopril 2.5 mg tablet 2.5 mg PO DAILY PRN HTN 30 days 04/30/24 #30 tabs carbidopa 25 mg-levodopa 100 mg 1 tab PO TID@0900,1500,2100 #270 05/26/24 tablet tabs donepezil 10 mg tablet 15 mg (1.5 x 10 mg) PO DAILY #135 05/26/24 tabs sertraline 25 mg tablet 25 mg PO DAILY 90 days #90 tabs 06/04/24 quetiapine 25 mg tablet 25 mg PO BEDTIME #30 tabs 07/08/24 cefuroxime axetil 250 mg tablet 250 mg PO BID 7 days #14 tabs 08/29/24 Allergies Allergy/AdvReac Type Severity Reaction Status Date / Time cat dander Allergy Mild Unknown Verified 08/29/24 10:42 Review of Systems 2 Review of Systems: Yes all other systems are reviewed and are negative Constitutional: Constitutional: Reports as per [facility] Past Medical History Attestation statement: The following information was validated with the patient. Source: old records reviewed Medical History Orthostatic hypotension Parkinson's disease with fluctuating manifestations Anxiety Spasmodic torticollis Neck pain ODILIA on CPAP Atrial fibrillation Arthritis Borderline hyperlipidemia Prostate enlargement Prediabetes Surgical History Hx of colonoscopy H/O neck surgery Status post cryoablation H/O lithotripsy Social History Social History Household Members: Spouse Housing: House Alcohol intake: current Alcohol intake frequency: holidays/special occasions only Patient Tobacco Use Status: Never used Tobacco Advance Directives: Yes Advance Directives on File: Yes Advance Directives Date on File: 11/29/23 Do you have a plan to hurt others: No Plan service: Yes Physical Exam ED Vital Signs: Vital Signs - 24 hr 08/29/24 10:35 08/29/24 10:39 08/29/24 10:50 Temperature 98.4 F Pulse Rate 82 65 Respiratory Rate 20 20 20 Blood Pressure 127/75 127/75 Pulse Oximetry 95 Oxygen Delivery Method Room Air Room Air 08/29/24 11:05 08/29/24 11:20 08/29/24 11:35 Temperature Pulse Rate 65 67 Respiratory Rate 18 16 16 Blood Pressure 104/60 104/60 Pulse Oximetry 95 96 Oxygen Delivery Method 08/29/24 13:03 08/29/24 14:42 Temperature 97.1 F Pulse Rate 63 68 Respiratory Rate 18 18 Blood Pressure 115/62 103/70 Pulse Oximetry 100 98 Oxygen Delivery Method Room Air Room Air BMI result Body Mass Index 20.6 Const Other: Alert, combative, kicking/punching at staff [facility] Head: Yes normal to inspection and Yes atraumatic Ears: hearing grossly normal bilaterally General nose exam: Normal external nose present Face and sinus: Yes normal facial exam Eyes General: appearance normal, both eyes and all related structures EOM: EOMs intact bilaterally Neck Neck: Yes normal visual inspection and Yes no meningeal signs Resp Effort & Inspection: normal respiratory effort and no respiratory distress Auscultation: clear to auscultation bilaterally Cardio Rate: regular rate Heart sounds: S1 normal heart sound present and S2 normal heart sound present GI Inspection: Yes normal to inspection Palpation (GI): Soft to palpation, nontender and no guarding Skin Rashes: no rashes Neuro General: tone normal and no meningeal signs Extrem General: Yes normal to inspection Course Course Course Narrative: -1248--chronic leukopenia. H&H around patient's baseline. Labs otherwise reassuring -UA infected > ill give IV Rocephin >> prior cultures grew E coli bell sensitive -COVID/flu/RSV negative -patient has been calm and cooperative without episodes of agitation since ED arrival/IM Zyprexa. CT head/brain wo IV con IMPRESSION: 1. No acute intracranial pathology. 2. Chronic volume loss and microangiopathic change. XR chest 1V IMPRESSION: 1. Exam limitations as detailed. 2. No active pulmonary disease. 3. Cardiomegaly with pacemaker. CT abdomen pelvis w IV con IMPRESSION: New T12 compression fracture. Advise correlation with MRI thoracic spine. Gastric wall thickening despite underdistention. Increase in gallbladder distention with cholelithiasis. Stable mixed cystic and solid lesion upper pole right kidney measuring 3.4 x 2.8 x 3.5 cm possibly representing neoplasm. Renal protocol CT or MRI may be considered. Extensive bilateral nephrolithiasis without hydronephrosis. Multiple bladder calculi. Small pericardial effusion. > results discussed with patient & patient's . would like to take patient home. Offered PT/case management. They are aware of old T12 compression fracture, gallstones, and kidney lesion. Follows with urology. Supplied with copy of CT results. Recommended close PCP, urology, and spine follow-up. Medications Administered Discontinued Medications Generic Name Dose Route Start Last Admin Trade Name Freq PRN Reason Stop Dose Admin Ceftriaxone Sodium 1 gm 08/29/24 12:47 08/29/24 13:27 Ceftriaxone Sodium 1 Gm Vial IVPUSH 08/29/24 12:48 1 gm ONCE ONE Administration Iohexol 100 ml 08/29/24 11:44 08/29/24 11:47 Iohexol 350 Mg/Ml 100 Ml Infus..Btl IV 08/29/24 11:45 85 ml ONCE ONE Administration Olanzapine 5 mg 08/29/24 10:31 08/29/24 10:38 Olanzapine 10 Mg Vial IM 08/29/24 10:32 5 mg STAT STA Administration Medical Decision Making Medical Decision Making MDM Narrative: 79-year-old male with a past medical history orthostatic hypotension, Parkinson's disease, dementia, anxiety, spasmodic torticollis, ODILIA on CPAP, AFib on Eliquis, arthritis, HLD, presenting to the ED via EMS with increased agitation with aggressive behavior x this morning, kicking and punching which is not his baseline. On exam vital signs stable, awake and alert, combative, kicking and punching at staff. Concern for metabolic/infectious etiologies vs ICH vs CVA vs intra-abdominal pathology Plan: EKG, labs, UA, CXR, head CT, CT AP, IM Zyprexa Please refer to course for remaining clinical decision making, interpretation of labs/imaging results, and discussions with consultants and/or family members. Differential Diagnosis Differential Diagnoses: The differential diagnosis associated with the presentation includes As above Admission/Observation Consideration of admission/observation: Escalation of care including admission/observation considered Lab Data MDM Lab Attestation statement: I reviewed the patient's lab results. 08/29/24 10:57 08/29/24 10:57 Labs: Lab Results 08/29/24 08/29/24 Range/Units 10:57 12:04 WBC 2.2 L (4.8-10.8) X10*3/uL RBC 3.02 L (4.60-5.80) X10*6/uL Hgb 10.6 L (14.0-18.0) g/dl Hct 31.0 L (42.0-52.0) % MCV 102.6 H (80.0-98.0) fL MCH 35.1 H (27.0-33.0) pg MCHC 34.2 (31.0-36.0) g/dl RDW 13.5 (11.0-16.0) % Plt Count 197 (160-400) X10*3/uL MPV 9.0 L (9.4-12.4) fL Immature Gran % (Auto) 0.0 (0.0-0.4) % Neut % (Auto) 48.7 (45-73) % Lymph % (Auto) 34.4 (20-40) % Coke % (Auto) 9.6 (2-11) % Eos % (Auto) 6.4 H (0-4) % Baso % (Auto) 0.9 (0-2) % Lymph # (Auto) 0.8 L (1.2-4.9) X10*3/uL Coke # (Auto) 0.2 (0.1-1.2) X10*3/uL Eos # (Auto) 0.1 (0.0-0.4) X10*3/uL Baso # (Auto) 0.0 (0.0-0.2) X10*3/uL Abs Immat Gran (auto) 0.00 (0.00-0.03) X10*3/uL Absolute Neuts (auto) 1.1 L (2.0-8.3) x10*3/uL Absolute Nucleated RBC 0.000 (0.0-0.012) X10*3/uL Nucleated RBC % (auto) 0.0 (0.0-0.2) /100WBC Smear Tech's Comments VERIFIED Sodium 142 (135-145) mmol/L Potassium 3.8 (3.3-5.1) mmol/L Chloride 108 (96-108) mmol/L Carbon Dioxide 24 (22-29) mmol/L Anion Gap 14 (12-20) BUN 19 H (9-16) mg/dL Creatinine 0.83 (0.5-1.4) mg/dL Estim Creat Clear Calc 64.5 Estimated GFR > 60 Random Glucose 100 (60-115) mg/dL Calcium 10.0 (8.4-10.2) mg/dL Magnesium 2.0 (1.6-2.6) mg/dL Total Bilirubin 0.7 (0.0-1.0) mg/dL Direct Bilirubin 0.2 (0.0-0.5) mg/dL AST 20 (5-37) U/L ALT < 6 (0-40) U/L Alkaline Phosphatase 79 (39-117) U/L Ammonia 31 (13-55) umol/L Total Protein 6.2 L (6.5-8.0) g/dL Albumin 3.9 (3.5-5.0) g/dL Lipase 21 (8-78) U/L Urine Color Yellow Urine Appearance Cloudy Urine pH 7.0 (5.0-9.0) Ur Specific Wittman 1.015 (1.005-1.025) Urine Protein 30 (1+) H (Neg-Trace) mg/dL Urine Glucose (UA) Negative (Negative) mg/dL Urine Ketones Negative (Negative) mg/dL Urine Blood Large (3+) H (Negative) Urine Nitrite Negative (Negative) Ur Leukocyte Esterase Large (3+) H (Negative) Urine RBC >20 H (0-2) /HPF Urine WBC 21-50 H (0-5) /HPF Ur Squamous Epith Cells 3-5 (0-2) /HPF Calcium Oxalate Crystal Present Urine Bacteria None Seen (None Seen) Hyaline Casts 3-5 (0-2) /LPF Influenza Type A (PCR) NEGATIVE (Negative) Influenza Type B (PCR) NEGATIVE (Negative) RSV RNA Qual (PCR) NEGATIVE (Negative) SARS-CoV-2 RNA (RT-PCR) NEGATIVE (Negative) Independent Interpretation I performed an independent interpretation of an: EKG, Plain X-Ray and CT Scan Radiology Impression Discussion of test interpretation with radiology: I have reviewed the radiologist's reading. Independent Historian Clinical information obtained from an independent historian. History obtained from or confirmed by: EMS and Other External Record Review External record reviewed: Inpatient record, Office record, Outpatient record, Prior outpatient labs, Prior outpatient radiology, Primary care record and Outside ED record Tests considered The following testing was considered but not selected: As above Chronic Conditions Patient?s care impacted by: Other (Parkinson's, dementia) Social Determinants Patient?s care significantly limited by Social Determinants of Health including: Inadequate housing, Problems related to primary support group, Unemployment, Problems related to employment and Other Social Determinant of Health Discharge Plan Discharge Clinical Impression: Acute UTI, Aggression, T12 compression fracture, Kidney lesion Patient Disposition: Home, Self-Care Instructions: Urinary Tract Infection in Men (DC) Additional Instructions: You have a urinary tract infection. Ceftin is an antibiotic please take as prescribed Please have close follow-up with your urologist. CT scan shows a cystic and solid lesion on the right kidney, please follow-up with urology, you recommend a renal protocol CT or MRI for further evaluation. This could be cancerous. You also have a T12 compression fracture which you know about. Please have close follow-up with her doctors If symptoms persist or worsen return to the emergency department Prescriptions: New cefuroxime axetil 250 mg tablet 250 mg PO BID 7 Days Qty: 14 0RF No Action metoclopramide HCl 5 mg tablet 5 mg PO QID PRN (Reason: nausea and vomiting) 14 Days Qty: 28 0RF lisinopril 2.5 mg tablet 2.5 mg PO DAILY PRN (Reason: HTN) 30 Days Qty: 30 1RF Rx Instructions: 2.5 mg orally daily at bedtime for BP above 160/90 PRN; carbidopa-levodopa 25-100 mg tablet 1 tab PO TID@0900,1500,2100 Qty: 270 4RF donepezil 10 mg tablet 15 mg PO DAILY Qty: 135 3RF sertraline 25 mg tablet 25 mg PO DAILY 90 Days Qty: 90 1RF quetiapine 25 mg tablet 25 mg PO BEDTIME Qty: 30 6RF nitrofurantoin monohyd/m-cryst [Macrobid] 100 mg capsule 100 mg PO Q12H 5 Days Qty: 10 0RF Rx Instructions: must administer with a meal/food multivitamin with minerals Tablet 1 tab PO DAILY@1500 carbidopa-levodopa 25-100 mg tablet 1 tab PO BID@1200,1800 calcium citrate 250 mg calcium Tablet 250 mg PO DAILY@1500 melatonin 10 mg Tablet 10 mg PO BEDTIME rasagiline 1 mg tablet 1 mg PO DAILY@2000 potassium chloride 20 mEq/15 mL Liquid 20 meq PO BEDTIME allopurinol 300 mg tablet 300 mg PO DAILY@1030 finasteride 5 mg tablet 5 mg PO DAILY@1800 levothyroxine 125 mcg tablet 125 mcg PO DAILY@0600 tamsulosin 0.4 mg capsule 0.4 mg PO DAILY@2000 Eliquis 5 mg tablet 5 mg PO BID B-complex with vitamin C Capsule 1 cap PO DAILY@1800 polyethylene glycol 3350 [Miralax] 17 gram/dose powder 17 g PO DAILY@0830 midodrine 2.5 mg tablet 10 mg PO BID Rx Instructions: 10 mg in am, 10 mg more 2 hours later, 5 mg 2 hours after that omeprazole 20 mg capsule,delayed release(DR/EC) 20 mg PO DAILY ursodiol 250 mg tablet 250 mg PO TID 90 Days Qty: 270 1RF Referrals: [facility] [Provider Group] [facility] [Provider Group] Alex Mitchell MD [Primary Care Provider] - Print Language: Azerbaijani
--- NOTE | 2024-08-29 10:58 | ECG_ITS ---
Test Reason : AMS Blood Pressure : / mmHG Vent. Rate : 067 BPM Atrial Rate : 000 BPM P-R Int : 000 ms QRS Dur : 082 ms QT Int : 400 ms P-R-T Axes : 000 -16 -08 degrees QTc Int : 422 ms Atrial fibrillation with occasional ventricular-paced complexes Abnormal ECG When compared with ECG of 23-NOV-2023 17:32, Vent. rate has decreased BY 6 BPM Referred By: Katiana Farris Electronically Signed By:JUANPABLO MURYR
[2024-08-29 11:08] LABS: Basophils Percent Auto 0.9 % (0-2); Eosinophils Absolute Auto 0.1 X10*3/uL (0.0-0.4); Eosinophils Percent Auto 6.4 % (0-4); Hemoglobin 10.6 g/dl (14.0-18.0); Lymphocytes Absolute Auto 0.8 X10*3/uL (1.2-4.9); Lymphocytes Percent Auto 34.4 % (20-40); MANUAL DIFF FLAG SCAN; Mean Corpuscular HGB Conc 34.2 g/dl (31.0-36.0); Mean Corpuscular Hemoglobin 35.1 pg (27.0-33.0); Mean Corpuscular Volume 102.6 fL (80.0-98.0); Monocytes Absolute Auto 0.2 X10*3/uL (0.1-1.2); Monocytes Percent Auto 9.6 % (2-11); Neutrophils Absolute Auto 1.1 x10*3/uL (2.0-8.3); Neutrophils Percent Auto 48.7 % (45-73); Platelet Count 197 X10*3/uL (160-400); Red Blood Count 3.02 X10*6/uL (4.60-5.80); Red Cell Distribution Width 13.5 % (11.0-16.0); SCAN SMEAR FLAG 1
[2024-08-29 11:10] LABS: White Blood Count 2.2 X10*3/uL (4.8-10.8)
[2024-08-29 11:11] LABS: Ammonia 31 umol/L (13-55)
--- NOTE | 2024-08-29 11:19 | PC.NURSE ---
arrived via EMS for agitation, per home nurse patient has history of parkinsons and dementia however is not combative at baseline. upon arrival, patient grabbing/punching/kicking at staff. states his mental status appears to be approx at his baseline, yet the behavior is not. provider at bedside - 5mg IM zyprexa ordered, administered 1035. IV established s/p medication administration and labs obtained and sent. appears calm and cooperative at this moment w/ family at bedside.
[2024-08-29 11:20] LABS: Alanine Aminotransferase < 6 U/L (0-40); Albumin Level 3.9 g/dL (3.5-5.0); Alkaline Phosphatase 79 U/L (39-117); Anion Gap 14 (12-20); Aspartate Amino Transferase 20 U/L (5-37); Bilirubin Direct 0.2 mg/dL (0.0-0.5); Bilirubin Total 0.7 mg/dL (0.0-1.0); Blood Urea Nitrogen 19 mg/dL (9-16); Carbon Dioxide 24 mmol/L (22-29); Chloride 108 mmol/L (96-108); Creatinine Clr Calc Pharmacy 64.5; Estimated Glomerular Filt Rate > 60; Glucose Random 100 mg/dL (60-115); Lipase 21 U/L (8-78); Potassium 3.8 mmol/L (3.3-5.1); Sodium 142 mmol/L (135-145); Total Protein 6.2 g/dL (6.5-8.0)
[2024-08-29 11:32] LABS: SLIDE REVIEW VERIFIED
[2024-08-29 11:44] LABS: Influenza A PCR NEGATIVE (Negative); Influenza B PCR NEGATIVE (Negative); Resp Syncy Virus RNA Qual PCR NEGATIVE (Negative); SARS COV2 PCR INHOUSE NEGATIVE (Negative)
[2024-08-29] MEDS: iohexoL 350 MG/ML 100 ML INFUS..BTL IV (11:47)
[2024-08-29 12:11] LABS: Appearance Urine Cloudy; Color Urine Yellow; Glucose Urine UA Negative (Negative); Leukocyte Esterase Urine Large (3+) (Negative); Nitrite Urine Negative (Negative); Specific Gravity - Urine 1.015 (1.005-1.025); UMIC TRIGGER UACC YES; Urine Blood Large (3+) (Negative); Urine Ketones Negative (Negative); Urine Protein 30 (1+) mg/dL (Neg-Trace)
[2024-08-29 12:27] LABS: Bacteria Urine None Seen (None Seen); Calcium Oxalate Crystals Urine Present; RBC Urine >20 /HPF (0-2); UACC Culture Trigger YES; WBC Urine 21-50 /HPF (0-5)
[2024-08-29] MEDS: cefTRIAXone sodium 1 GM VIAL IVPUSH (13:27)
--- NOTE | 2024-08-29 13:39 | PC.NURSE ---
continues to rest quietly in room w/ even and unlabored respirations. medicated per the DEC.
--- NOTE | 2024-08-29 16:39 | PC.NURSE ---
patient changed over and assisted into wheelchair awaiting ride home. able to ambulate to wheel chair with minimal assistance
== END 2024-08-29 16:41 | disposition home or self-care (01) ==
PROVIDERS: Physician Assistant; Emergency Provider Emergency Medicine Emergency Medical Services; PCP Internal Medicine
DX: G20.A1 Parkinson's disease without dyskinesia, without mention of fluctuations (principal); F02.811 Dementia in other diseases classified elsewhere, unspecified severity, with agitation; R41.82 Altered mental status, unspecified; N39.0 Urinary tract infection, site not specified; I48.91 Unspecified atrial fibrillation; M48.54XA Collapsed vertebra, not elsewhere classified, thoracic region, initial encounter for fracture; N28.9 Disorder of kidney and ureter, unspecified; Z79.899 Other long term (current) drug therapy; Z03.818 Encounter for observation for suspected exposure to other biological agents ruled out; Z79.01 Long term (current) use of anticoagulants
CPT/HCPCS: 0241U; 36415; 70450; 71045; 74177; 80048; 80076; 81001; 82140; 83690; 83735; 85025; 87086; 93005; 96372; 96374; 99284; J0696; J2359; Q9967

== ENCOUNTER 2024-09-13 02:58 | Emergency (ER) | payer MEDICARE, SELFPAY ==
--- NOTE | 2024-09-13 | ECG_ITS ---
Test Reason : AMS Blood Pressure : / mmHG Vent. Rate : 073 BPM Atrial Rate : 000 BPM P-R Int : 000 ms QRS Dur : 084 ms QT Int : 392 ms P-R-T Axes : 000 000 007 degrees QTc Int : 431 ms Atrial fibrillation Abnormal ECG When compared with ECG of 29-AUG-2024 11:00, Atrial fibrillation has replaced Electronic ventricular pacemaker Referred By: Generic ED Physician Electronically Signed By:Hipolito Shannon
[2024-09-13 03:11] VITALS: BP 111/69; BP 118/88; PULSE 71; PULSE 84; RESP 22; TEMP 36.5; O2SAT 100; O2SAT 98; BMI 21.5
[2024-09-13 03:33] LABS: Hematocrit 29.6 % (42.0-52.0); Hemoglobin 10.2 g/dl (14.0-18.0); Mean Corpuscular HGB Conc 34.5 g/dl (31.0-36.0); Mean Corpuscular Hemoglobin 35.9 pg (27.0-33.0); Mean Corpuscular Volume 104.2 fL (80.0-98.0); Mean Platelet Volume 8.9 fL (9.4-12.4); Platelet Count 191 X10*3/uL (160-400); Red Blood Count 2.84 X10*6/uL (4.60-5.80); Red Cell Distribution Width 13.2 % (11.0-16.0)
[2024-09-13 03:34] LABS: White Blood Count 2.5 X10*3/uL (4.8-10.8)
[2024-09-13 03:48] LABS: Anion Gap 15 (12-20); Blood Urea Nitrogen 25 mg/dL (9-16); Calcium 9.7 mg/dL (8.4-10.2); Carbon Dioxide 24 mmol/L (22-29); Chloride 106 mmol/L (96-108); Creatinine Clr Calc Pharmacy 61.4; Estimated Glomerular Filt Rate > 60; Ethanol < 10 mg/dL; Glucose Random 121 mg/dL (60-115); Potassium 3.9 mmol/L (3.3-5.1); Sodium 141 mmol/L (135-145)
--- NOTE | 2024-09-13 05:44 | ED_ITS ---
HPI - Altered Mental Status General Chief Complaint: Altered Mental Status Stated Complaint: AMS, UTI?, Confusion Agitation,Hx dementia, A&Ox2 Time Seen by Provider: 09/13/24 05:33 Source: family and EMS Mode of arrival: EMS Limitations: other (Dementia) History of Present Illness ED Provider: Dr. Naomi Haro HPI narrative: Patient comes to the emergency room via ambulance accompanied by his . Patient has history of dementia and Parkinson's and can not give any reliable history. According to the patient's , for the last day, patient has had increased aggression, breaking stuff and throwing stuff around the house. Patient also combative with her. According to the patient's , when he acts like this, he usually has a urinary tract infection. Patient awake, alert, no talking at this time. According to the patient, at baseline the patient is alert, has dementia and confused. However, he is not aggressive or combative at baseline. Patient states that he had a UTI approximately a month ago, given cefuroxime. At this time, the patient's states that the patient has not had any fever or chills, has not reported any hematuria. Related Data Home Medications ?Medication ?Instructions ?Recorded ?Confirmed allopurinol 300 mg tablet 300 mg PO DAILY@1030 11/10/22 01/09/24 finasteride 5 mg tablet 5 mg PO DAILY@179911/10/22 01/09/24 levothyroxine 125 mcg tablet 125 mcg PO DAILY@0600 11/10/22 01/09/24 tamsulosin 0.4 mg capsule 0.4 mg PO DAILY@199911/10/22 01/09/24 B-complex with vitamin C 1 cap PO DAILY@1800 11/15/22 01/09/24 apixaban 5 mg tablet (Eliquis) 5 mg PO BID 11/15/22 01/09/24 polyethylene glycol 3350 17 17 g PO DAILY@0830 11/15/22 01/09/24 gram/dose oral powder (Miralax) calcium citrate 250 mg PO DAILY@1500 11/23/23 01/09/24 carbidopa 25 mg-levodopa 100 mg 1 tab PO BID@1200,1800 11/23/23 01/09/24 tablet melatonin 10 mg tablet 10 mg PO BEDTIME 11/23/23 01/09/24 multivitamin with minerals 1 tab PO DAILY@1500 11/23/23 01/09/24 potassium chloride 20 mEq/15 mL 20 meq PO BEDTIME 11/23/23 01/09/24 oral liquid rasagiline 1 mg tablet 1 mg PO DAILY@199911/23/23 01/09/24 omeprazole 20 mg capsule,delayed 20 mg PO DAILY 01/02/24 01/09/24 release midodrine 2.5 mg tablet 10 mg PO BID 04/15/24 Previous Rx's ?Medication ?Instructions ?Recorded ursodiol 250 mg tablet 250 mg PO TID 90 days #270 tabs 01/02/24 nitrofurantoin 100 mg PO Q12H 5 days #10 caps 03/29/24 monohydrate/macrocrystals 100 mg capsule (Macrobid) metoclopramide HCl 5 mg tablet 5 mg PO QID PRN nausea and 04/18/24 vomiting 14 days #28 tabs lisinopril 2.5 mg tablet 2.5 mg PO DAILY PRN HTN 30 days 04/30/24 #30 tabs carbidopa 25 mg-levodopa 100 mg 1 tab PO TID@0900,1500,2100 #270 05/26/24 tablet tabs donepezil 10 mg tablet 15 mg (1.5 x 10 mg) PO DAILY #135 05/26/24 tabs sertraline 25 mg tablet 25 mg PO DAILY 90 days #90 tabs 06/04/24 quetiapine 25 mg tablet 25 mg PO BEDTIME #30 tabs 07/08/24 cefuroxime axetil 250 mg tablet 250 mg PO BID 7 days #14 tabs 08/29/24 lorazepam 0.5 mg tablet 0.25 mg (1/2 x 0.5 mg) PO BID PRN 09/01/24 anxiety 15 days #15 tabs nitrofurantoin 100 mg PO Q12H 7 days #14 caps 09/13/24 monohydrate/macrocrystals 100 mg capsule (Macrobid) Allergies Allergy/AdvReac Type Severity Reaction Status Date / Time cat dander Allergy Mild Unknown Verified 09/13/24 03:14 Review of Systems 2 Review of Systems: Yes Unobtainable due to mental status PMFSH Past Medical History Medical History Orthostatic hypotension Parkinson's disease with fluctuating manifestations Anxiety Spasmodic torticollis Neck pain ODILIA on CPAP Atrial fibrillation Arthritis Borderline hyperlipidemia Prostate enlargement Prediabetes Surgical History Hx of colonoscopy H/O neck surgery Status post cryoablation H/O lithotripsy Social History Social History Household Members: Spouse Housing: House Alcohol intake: current Alcohol intake frequency: holidays/special occasions only Patient Tobacco Use Status: Never used Tobacco Advance Directives: Yes Advance Directives on File: Yes Advance Directives Date on File: 11/29/23 service: Yes Physical Exam ED Vital Signs: Vital Signs - 24 hr 09/13/24 03:11 Temperature 97.7 F Pulse Rate 71 Respiratory Rate 22 H Blood Pressure 111/69 Pulse Oximetry 100 Oxygen Delivery Method Room Air BMI result Body Mass Index 21.5 Const Other: Appearance: Alert. Somnolent but easily arousable. Does not seem to be in any distress. Eyes: Pupils equal, round and reactive to light. ENT: Pharynx normal. Neck: Normal inspection. Neck supple. No lymph nodes noted. No crepitus CVS: Normal heart rate and rhythm. Pulses normal. Normal S1 and S2 Respiratory: No respiratory distress. Breath sounds normal. No Wheezing. No rales Abdomen: Soft and nontender. No rigidity. No distention. Skin: Skin warm and dry. Normal skin color. Normal skin turgor. Extremities: No lower extremity edema. No Lacerations. No Rash Neuro: Unable to participate in cranial nerve assessment. Psych: calm Medications Administered Discontinued Medications Generic Name Dose Route Start Last Admin Trade Name Freq PRN Reason Stop Dose Admin Sodium Chloride 1,000 mls @ 999 mls/hr 09/13/24 06:30 09/13/24 06:48 Ns IV 09/13/24 07:30 999 mls/hr .Q1H1M COLLINS Administration Lorazepam 1 mg 09/13/24 07:22 09/13/24 07:43 Lorazepam 2 Mg/Ml Vial IM 09/13/24 07:23 1 mg STAT STA Administration Nitrofurantoin Macrocrystals 100 mg 09/13/24 06:46 09/13/24 07:11 Nitrofurantoin Monohyd/M-Cryst 100 Mg Capsule PO 09/13/24 06:47 100 mg ONCE ONE Administration Medical Decision Making Medical Decision Making [facility] Narrative: My interpretation of labs: Hematology is at baseline, white blood cell count 2.5 which is chronic for the patient. Chemistry within normal limits. Urinalysis pending. -patient's states that when patient gets a UTI, what seems to work best for him is Macrobid/nitrofurantoin. Patient's requesting that if the patient has a UTI, to get Macrobid. Last time patient had cefuroxime but did not work as well as Macrobid usually does. -urinalysis is positive for UTI. However, reviewing patient's microbiology, on August 29, patient had a similar looking urine analysis, negative for bacterial growth. However, in February of 2024, the urine was also similar to the past 2 urines any grew E coli. Given patient's symptoms and change in behavior, we will go ahead and treat as a UTI. Patient was given the 1st dose of Macrobid. I reviewed patient's sensitivity to antibiotics for UTIs, patient is sensitive to Macrobid. According to the patient's , whenever he gets a UTI, seems to work best for him. It is reasonable to treat with Macrobid. -patient's concerned that he has not been drinking, patient came in with an IV, receiving a small bolus of fluid. Then patient can be discharged -patient's seems a bit weak. Patient's is adamant about taking him home. Admission for weakness and UTI offered, PT case management was offered for more assistance at home, patient's states that they already have visiting nurses. -as patient was getting discharged, patient has started becoming agitated. Patient's states that he usually does well with Ativan. Patient refusing to take p.o.. The patient's request, IM given so that she can take him home. We offered admission/observation in the hospital versus PT case management. Patient's states that she would like to take him home. Differential Diagnosis Differential Diagnoses: The differential diagnosis associated with the presentation includes (UTI, dementia, Parkinson's) Admission/Observation Consideration of admission/observation: Escalation of care including admission/observation considered Lab Data [facility] Lab Attestation statement: I reviewed the patient's lab results. 09/13/24 03:27 09/13/24 03:27 Labs: Lab Results 09/13/24 09/13/24 Range/Units 03:27 05:48 WBC 2.5 L (4.8-10.8) X10*3/uL RBC 2.84 L (4.60-5.80) X10*6/uL Hgb 10.2 L (14.0-18.0) g/dl Hct 29.6 L (42.0-52.0) % MCV 104.2 H (80.0-98.0) fL MCH 35.9 H (27.0-33.0) pg MCHC 34.5 (31.0-36.0) g/dl RDW 13.2 (11.0-16.0) % Plt Count 191 (160-400) X10*3/uL MPV 8.9 L (9.4-12.4) fL Absolute Nucleated RBC 0.000 (0.0-0.012) X10*3/uL Nucleated RBC % (auto) 0.0 (0.0-0.2) /100WBC Sodium 141 (135-145) mmol/L Potassium 3.9 (3.3-5.1) mmol/L Chloride 106 (96-108) mmol/L Carbon Dioxide 24 (22-29) mmol/L Anion Gap 15 (12-20) BUN 25 H (9-16) mg/dL Creatinine 0.91 (0.5-1.4) mg/dL Estim Creat Clear Calc 61.4 Estimated GFR > 60 Random Glucose 121 H (60-115) mg/dL Calcium 9.7 (8.4-10.2) mg/dL Magnesium 2.0 (1.6-2.6) mg/dL Urine Color Yellow Urine Appearance Cloudy Urine pH 5.5 (5.0-9.0) Ur Specific [place]idder 1.020 (1.005-1.025) Urine Protein 30 (1+) H (Neg-Trace) mg/dL Urine Glucose (UA) Negative (Negative) mg/dL Urine Ketones Trace (Negative) mg/dL Urine Blood Large (3+) H (Negative) Urine Nitrite Negative (Negative) Ur Leukocyte Esterase Moderate (2+) H (Negative) Urine RBC 11-20 H (0-2) /HPF Urine WBC 21-50 H (0-5) /HPF Ur Squamous Epith Cells 0-2 (0-2) /HPF Calcium Oxalate Crystal Present Urine Bacteria None Seen (None Seen) Hyaline Casts 0-2 (0-2) /LPF Urine Opiates Screen Not Detected (Not Detect) Ur Buprenorphine Scrn Not Detected (Not Detect) ng/mL Ur Oxycodone Screen Not Detected (Not Detect) ng/mL Urine Methadone Screen Not Detected (Not Detect) ng/mL Urine Fentanyl Screen Not Detected (Not Detect) Ur Barbiturates Screen Not Detected (Not Detect) Ur Phencyclidine Scrn Not Detected (Not Detect) Ur Amphetamines Screen Not Detected (Not Detect) U Benzodiazepines Scrn Not Detected (Not Detect) Urine Cocaine Screen Not Detected (Not Detect) U Marijuana (THC) Screen Not Detected (Not Detect) Ethyl Alcohol < 10 mg/dL Independent Historian Clinical information obtained from an independent historian. History obtained from or confirmed by: Spouse Discharge Plan Discharge Clinical Impression: Acute UTI Patient Disposition: Home, Self-Care Instructions: Urinary Tract Infection in Men (ED) Additional Instructions: Please follow-up with your primary care physician tomorrow. If you have any worsening or new symptoms, please return to the emergency room or call 911 Prescriptions: New nitrofurantoin monohyd/m-cryst [Macrobid] 100 mg capsule 100 mg PO Q12H 7 Days Qty: 14 0RF Rx Instructions: must administer with a meal/food No Action metoclopramide HCl 5 mg tablet 5 mg PO QID PRN (Reason: nausea and vomiting) 14 Days Qty: 28 0RF lisinopril 2.5 mg tablet 2.5 mg PO DAILY PRN (Reason: HTN) 30 Days Qty: 30 1RF Rx Instructions: 2.5 mg orally daily at bedtime for BP above 160/90 PRN; carbidopa-levodopa 25-100 mg tablet 1 tab PO TID@0900,1500,2100 Qty: 270 4RF donepezil 10 mg tablet 15 mg PO DAILY Qty: 135 3RF sertraline 25 mg tablet 25 mg PO DAILY 90 Days Qty: 90 1RF quetiapine 25 mg tablet 25 mg PO BEDTIME Qty: 30 6RF lorazepam 0.5 mg tablet 0.25 mg PO BID PRN (Reason: anxiety) 15 Days Qty: 15 1RF nitrofurantoin monohyd/m-cryst [Macrobid] 100 mg capsule 100 mg PO Q12H 5 Days Qty: 10 0RF Rx Instructions: must administer with a meal/food multivitamin with minerals Tablet 1 tab PO DAILY@1500 carbidopa-levodopa 25-100 mg tablet 1 tab PO BID@1200,1800 calcium citrate 250 mg calcium Tablet 250 mg PO DAILY@1500 melatonin 10 mg Tablet 10 mg PO BEDTIME rasagiline 1 mg tablet 1 mg PO DAILY@2000 potassium chloride 20 mEq/15 mL Liquid 20 meq PO BEDTIME cefuroxime axetil 250 mg tablet 250 mg PO BID 7 Days Qty: 14 0RF allopurinol 300 mg tablet 300 mg PO DAILY@1030 finasteride 5 mg tablet 5 mg PO DAILY@1800 levothyroxine 125 mcg tablet 125 mcg PO DAILY@0600 tamsulosin 0.4 mg capsule 0.4 mg PO DAILY@2000 Eliquis 5 mg tablet 5 mg PO BID B-complex with vitamin C Capsule 1 cap PO DAILY@1800 polyethylene glycol 3350 [Miralax] 17 gram/dose powder 17 g PO DAILY@0830 midodrine 2.5 mg tablet 10 mg PO BID Rx Instructions: 10 mg in am, 10 mg more 2 hours later, 5 mg 2 hours after that omeprazole 20 mg capsule,delayed release(DR/EC) 20 mg PO DAILY ursodiol 250 mg tablet 250 mg PO TID 90 Days Qty: 270 1RF Print Language: Spanish
[2024-09-13 05:55] LABS: Appearance Urine Cloudy; Color Urine Yellow; Glucose Urine UA Negative (Negative); Leukocyte Esterase Urine Moderate (2+) (Negative); Nitrite Urine Negative (Negative); PH 5.5 (5.0-9.0); UMIC TRIGGER UACC YES; Urine Blood Large (3+) (Negative); Urine Ketones Trace mg/dL (Negative); Urine Protein 30 (1+) mg/dL (Neg-Trace)
[2024-09-13 06:07] LABS: Bacteria Urine None Seen (None Seen); Calcium Oxalate Crystals Urine Present; Hyaline Casts Urine 0-2 /LPF (0-2); Squamous Epithelial Cell Urine 0-2 /HPF (0-2); UACC Culture Trigger YES; WBC Urine 21-50 /HPF (0-5)
[2024-09-13 06:17] LABS: Amphetamine Screen Urine Not Detected (Not Detect); Barbiturates, Urine Not Detected (Not Detect); Benzodiazepines Screen Urine Not Detected (Not Detect); Buprenorphine Scr Not Detected (Not Detect); Cannabinoid Screen Urine Not Detected (Not Detect); Cocaine Screen Urine Not Detected (Not Detect); Fentanyl, urine Not Detected (Not Detect); Methadone Screen, Urine Not Detected (Not Detect); Opiate Screen Urine Not Detected (Not Detect); Oxycodone Screen Urine Not Detected (Not Detect); Phencyclidine Screen Urine Not Detected (Not Detect)
[2024-09-13] MEDS: 0.9 % Sodium Chloride 1,000 ML 999 ML IV (06:48)
[2024-09-13] MEDS: Nitrofurantoin Monohyd/M-Cryst 100 MG CAPSULE PO (07:11)
[2024-09-13] MEDS: LORazepam 2 MG/ML VIAL 1 MG IM (07:43)
[2024-09-13 08:00] VITALS: BP 134/76; PULSE 80; RESP 18; O2SAT 95
--- NOTE | 2024-09-13 08:32 | PC.NURSE ---
at 0715 pt laying in bed with at bedside, pt became agitated when attempting to give his med in pudding and attempts to get him dressed. is adamant that she will be bringing him home, the wanted him to get IM ativan and to then take the pt home, IM ativan given,and I discussed with the that we would keep the pt here and let him calm prior to discharge, and voiced concern for her ability to care for him and herself at home, adamant about going home, Dr Haro to bedside to discuss care plan and again is adamant about pt going home with her, there was a wheelchair in the room and at approx 0810 the left with the pt. this RN did not see them leave she already had the d/c instructions from attempt to discharge at 0715.
--- NOTE | 2024-09-13 08:58 | PC.NURSE ---
call placed to and she reports that they are home and safe. everything is going fine , she thanked us for our help
[2024-09-13 08:59] VITALS: BP 134/76; PULSE 80; RESP 18; TEMP -17.7; TEMP 0; O2SAT 95
== END 2024-09-13 09:03 | disposition home or self-care (01) ==
PROVIDERS: Emergency Provider Emergency Medicine
DX: N39.0 Urinary tract infection, site not specified (principal); G20.A2 Parkinson's disease without dyskinesia, with fluctuations; I48.91 Unspecified atrial fibrillation; Z79.899 Other long term (current) drug therapy; Z79.01 Long term (current) use of anticoagulants
CPT/HCPCS: 36415; 80048; 80307; 81001; 83735; 85027; 87086; 93005; 96360; 96361; 96372; 99284; J2060

== ENCOUNTER → 2024-09-13 03:36 | Outpatient (BNV) | payer MEDICARE, SELFPAY | PROVIDERS: Emergency Provider Emergency Medicine; Visit Provider Internal Medicine Cardiovascular Disease | DX: I48.91 Unspecified atrial fibrillation (principal) | CPT/HCPCS: 93010 ==

== ENCOUNTER → 2025-05-07 15:31 | Outpatient (BNVA) | payer MEDICARE, OTHER, SELFPAY | PROVIDERS: PCP Internal Medicine; Visit Provider Psychiatry & Neurology Neurology | DX: G20.A2 Parkinson's disease without dyskinesia, with fluctuations (principal); I95.1 Orthostatic hypotension | CPT/HCPCS: 99212 ==

== ENCOUNTER 2025-10-14 16:08 | Outpatient (AMB) | payer MEDICARE, SELFPAY ==
--- NOTE | 2025-10-14 15:43 | A.OFFVIS_ITS ---
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 Required: No Accompanied by: Spouse Allergies cat dander Allergy (Mild, Verified 05/07/25 15:36) Unknown Medication List - Last Reconciled 10/14/25 by AC Dewitt allopurinol 300 mg PO DAILY@1030 apixaban (Eliquis) 5 mg PO BID calcium citrate 250 mg PO DAILY@1500 carbidopa-levodopa 25-100 mg 1 tab PO BID@1200,1800 carbidopa-levodopa 25-100 mg 1 tab PO TID cefuroxime axetil 250 mg PO BID 7 days donepezil 20 mg (2 x 10 mg) PO DAILY finasteride 5 mg PO DAILY@1800 fludrocortisone 0.1 mg PO DAILY levothyroxine 100 mcg PO DAILY@0600 lisinopril 2.5 mg PO DAILY PRN 30 days lorazepam 1 1/2 tabs qid orally PRN; 30 days melatonin 10 mg PO BEDTIME memantine (Namenda) 10 mg PO QPM metoclopramide HCl 5 mg PO QID PRN 14 days midodrine 10 mg PO TID nitrofurantoin monohyd/m-cryst 100 mg (Macrobid) 100 mg PO Q12H 5 days nitrofurantoin monohyd/m-cryst 100 mg (Macrobid) 100 mg PO Q12H 7 days polyethylene glycol 3350 (Miralax) 17 grams PO DAILY@0830 potassium chloride 20 mEq PO BEDTIME rasagiline 1 mg PO DAILY sertraline 12.5 mg PO DAILY tamsulosin 0.4 mg PO DAILY@2000 trazodone 25 mg PO BEDTIME PRN ursodiol 250 mg PO TID HPI Comments Details: 80 yr-old Right handed male presents for follow-up of Parkinson disease via telephone call. Patient and his are unable to utilize [employer] technology today. Patient is accompanied by his Adele, who provides the majority of the history. PD regimen: CD-LD IR 25-100mg- 2 tabs at 11:30, 2 tabs at 3:30-4:30pm, and 1 tab at 7:30pm. His provides most of his history. She states his speech is non-sensicle or garbled during the day, but his speech is clear in the am and the later day. She states his voice strength varies, but whether weaker or stronger- his speech does not make sense. She is never exactly sure if he is answering her or just rambling. He can only not state that he has pain if he is very taxed or severe, such as coming back from the ER last night (went as a cut would not stop bleeding). He has tried to write, but it comes out in scribbles . He tries to read or plays games. He continues to need max assist with ADLs. He has more help- someone helps Mon-Sun and on the weekend. He can walk independently with a walker, even up and down stairs, even when his speech is not understandable. He is more prone unsteady gait, his feet will become tangled. When this happens, they will provide contact guard or bring a chair. She is not sure if he is still having episodes of orthostatic lightheadedness. He is taking midodrine and fludrocortisone- usually takes when he wakes up, may be later in the morning- and wonders what times he should be taking these. Sometimes when he 1st wakes up his blood pressure is over 140, so they do not give him these medications until after he has HTN, when his blood pressure has decreased some. And then they repeat the dose every 2 hours- but not later than 16:00. He typically goes to bed around 22:00. In a chair, he sometimes he will be staring, drooling, having runny nose, and will list/fall to the left side and fall over- if sitting in a kitchen chair. They deny dyskineisias. He has started quetiapine 12.5mg qam for combativeness, which has been helpful. He continues on memantine 10 mg has a day donepezil. He will reach out to things or stare at the bedroom door- and once said that door was eating my brain . 05/07/2025, last HPI by Dr Raven Cade: He has been having more behavior issues- he is on lorazepam as needed. she is concerned about his cognitive decline, donepezil helped initially but josé snot help anymore , he was started on memantine .she is concerned about difficulty with speech . she thinks his worsening cognition might be related to his intercurrent illness . He has many helpers for his ADLs. He walks with a walker. He has falls- last fall was yesterday - he leans backwards. 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 His hallucinations have worsened since last year. History from initial HPI by DR Raven Cade on 11/15/2022: 77y/o Right handed male comes for further management of Parkinsons disease. He is accompanied by his Adele. He noticed shuffling about 6 years ago and it has progressively worsened since then and was diagnosed with parkinsons disease by Dr. Judge .He also has tremors are mostly at rest . He reports mild memory issues. Sleep is ok . He frequently talks in his sleep. No screaming or acting out dreams . He takes occasional daytime naps. He has mild depression and less motivated. He speech is softer or he has occasional drooling . He has difficulty with hand writing, using utensils, needs help with dressing , needs help with shower. He has trouble turning in bed, has trouble lifting his legs. He has trouble getting out of car. He goes to [facility] for 2 classes/week His gait is slow and mildly off balance No falls. No dizziness , no double vision . He has loose stools and mild urgency He has hallucinations more in the evenings. [facility] Medical History Orthostatic hypotension Parkinson's disease with fluctuating manifestations Anxiety Spasmodic torticollis Neck pain ODILIA on CPAP Atrial fibrillation Arthritis Borderline hyperlipidemia Prostate enlargement Prediabetes Surgical History Hx of colonoscopy H/O neck surgery Status post cryoablation H/O lithotripsy Social History Household Members: Spouse Housing: House Alcohol intake: current Alcohol intake frequency: holidays/special occasions only Patient Tobacco Use Status: Never used Tobacco Advance Directives Date on File: 11/29/23 service: Yes Physical Exam Const General: no acute distress Telehealth Telehealth Telehealth Platform: Telephone Location of provider rendering services: practice address Location of patient: address on file Patient Identification confirmed using: Name, : Yes Telehealth method: voice only Patient verbally consented to treatment: Yes Patient verbally consented to billing insurance company: Yes Patient informed of any privacy concerns related to visit: Yes Minutes spent on Phone/Video with Pt.: 30 Assessment & Plan Assessment & Plan (1) Parkinson's disease with fluctuating manifestations: Code(s): G20.A2 - Parkinson's disease without dyskinesia, with fluctuations Category: Medical Qualifiers: Dyskinesia presence: without dyskinesia Qualified Code(s): G20.A2 - Parkinson's disease without dyskinesia, with fluctuations (2) Orthostatic hypotension: Code(s): I95.1 - Orthostatic hypotension Category: Medical Plan Continue quetiapine 12.5 mg q.a.m. Continue sertraline 12.5 mg daily Sinemet 25/100 2-2-1, up to 6 tabs per day. * Unfortunately, he is having greater than 3 hours of off time per day. * However, he may benefit from Vyalev, as this could be infused at lower doses, which would reduce the risk for exacerbating orthostatic hypotension, and is also not affected by oral protein intake. * They will review, and let us know Midodrine 10-10-10 Rasagiline 1mg qd Donepezil 20 mg daily Memantine 10 mg Q evening Continue supportive care, with home health aide services. Medications: Changed From sertraline 25 mg PO DAILY 90 days 90 tabs 0RF To sertraline 12.5 mg PO DAILY Coding Level of Care Code Tele Est Pt Level 4 (25519) Add On Problem Visit Only Diagnoses Parkinson's disease without dyskinesia, with fluctuating manifestations G20.A2 Dyskinesia presence: without dyskinesia Orthostatic hypotension I95.1
--- OUTSIDE RECORDS SUMMARY | 2025-10-14 20:52 | XMS_ITS | Encounter Summary ---
Author Organization [facility] Address [address] [facility] [address] [place] [id number] Phone Care Team Providers Care Sheet Metal Duct Installer Apprentice Name Role Phone Alex Mitchell MD Primary Care Provider + Avelino Aldana Primary Care Provider [phone] Ghada Sousa NP Primary Care Provid er Reason for Referral * Physical Therapy (Routine) - Closed Specialty Diagnoses / Procedures Referred By Contray t Referred To Contact Physical Therapy Diagnoses Encounter for rehabilitation Don Hubbard MD Phone: tel: fax: [facility] [address] [place] [address] Phone: tel: Referral ID Status Reason Start Date Expiration Date Visits Re quested Visits Authorized [id number] Closed 12/27/2022 10/28/2023 25 25 Encounter Details Date Type Department Care Team (Latest Contact Info) Description 12/27/2022 Transcribe Orders [facility] [address] [place] [id number] System, Provider Not In, [facility] [address] [address] Encounter for rehabilitation (Primary Dx) Social History Tobacco Use Types Packs/Day Years Used Date Smoking Tobacco: Never Smokeless Tobacco: Never Alcohol Use Standard Drinks/Week Comments No 0 (1 standard drink = 0.6 oz pur e alcohol) Sex and Gender Information Value Date Recorded Sex Assigned at Male 10/08/2023 3:28 PM EST Legal Sex Male 11:01 AM EDT Gender Identity Male 10/08/2023 3:28 PM EST Sexual Orientation Not on file documented as of this encounter Plan of Treatment Upcoming Encounters Date Type Department Care Team (Late st Contact Info) Description 12/22/2025 3:30 PM EST Telemedicine [facility] [address] [facility] [facility], [address] [place] [address] Grant Nix MD, PhD [address] [facility] [address] [place] [address] [email or web address] [email or web address] Referrals Name Type Priority Associated Diagnoses Orde r Schedule Ambulatory referral to [facility] Physical Therapy Outpatient Referral Routine Encounter for rehabilitation Ordered: 12/27/2022 documented as of this encounter Visit Diagnoses Diagnosis Encounter for rehabilitation- Primary documented in this encounter Care Teams Sheet Metal Duct Installer Apprentice Relationship Specialty Start Date End Date Alex Mitchell MD [address] [place] [id number] PCP - General Internal Medicine 03/23/21 04/10/24 Avelino Aldana PA [address] [place] [id number] PCP - General Physician Airport Manager 04/11/24 06/24/25 Ghada Sousa NP [address] [place] [id number] PCP - General Nurse Practitioner 06/25/25 documented as of this encounter Additional Source Comments The information contained in this document represents components of the legal health record. It is not the complete legal health record.[facility]
--- OUTSIDE RECORDS SUMMARY | 2025-10-14 20:52 | XMS_ITS | Encounter Summary ---
Author Organization [facility] Address [address] [facility] [address] [place] [address] Phone Care Team Providers Care Feather Shaper Name Role Phone Unknown, Unknown Primary Care Provider Alex Conley MD Primary Care Provider + Avelino Aldana Primary Care Provider [phone]- [phone] Ghada Sousa NP Primary Care Provid er Reason for Referral * Physical Therapy (Routine) - Closed Specialty Diagnoses / Procedures Referred By Joanna adair Referred To Contact Physical Therapy Diagnoses Encounter for rehabilitation Stephanie May CNP Phone: tel: fax: [email or web address] [facility] [address] [place] [address] Phone: tel: Referral ID Status Reason Start Date Expiration Date Visits Re quested Visits Authorized [id number] Closed 08/03/2020 10/28/2020 25 25 Encounter Details Date Type Department Care Team (Latest Contact Info) Description 08/03/2020 Transcribe Orders [facility] [address] [place] [address] Stephanie May CNP [address] [place] [address] [email or web address] Encounter for rehabilitation (Primary Dx) Social History [...] Info) Description 12/22/2025 3:30 PM EST Telemedicine [facility] [address] [place] [address], [address] [place] [address], [address] [place] [address] Grant Nix MD, PhD [address] [place], [place] [address]ZS [address] [place] [address] [email or web address] Scheduled Referrals Name Type Priority Associated Diagnoses Orde r Schedule Ambulatory referral to [facility] Physical Therapy Outpatient Referral Routine Encounter for rehabilitation Ordered: 08/03/2020 documented as of this encounter Visit Diagnoses Diagnosis Encounter for rehabilitation- Primary documented in this encounter Care Teams Feather Shaper Relationship Specialty Start Date End Date Unknown, Unknown, MD PCP - General 03/05/18 03/22/21 Alex Mitchell MD [address] [place] [address] PCP - General Internal Medicine 03/23/21 04/10/24 Avelino Aldana PA [address] [place] [address] PCP - General Physician Silver Recovery Operator 04/11/24 06/24/25 Ghada Sousa NP [address] [place] [address] PCP - General Nurse Practitioner 06/25/25 documented as of this encounter Additional Source Comments The information contained in this document represents components of the legal health record. It is not the complete legal health record.[facility]
--- OUTSIDE RECORDS SUMMARY | 2025-10-14 20:52 | XMS_ITS | Clinical Summary ---
Author Organization [facility] Facility Address [address] [address] Care Team Providers Care Pen Or Pencil Assembly Machine Operator Name Role Phone Alex Mitchell MD Primary Care Provider [phone] Allergies Active Allergy Reactions Criticality Noted Date Comments Dust Mite Extract Other (see comments) 03/13/20 18 Medications rasagiline (AZILECT) 1 MG tablet Take 1 tablet by mouth 1 (one) time each day Active metoprolol tartrate 25 MG tablet 1 Active melatonin tablet Take 4 mg by mouth 1 (one) time each day Active levothyroxine (SYNTHROID, LEVOTHROID) 125 MCG tablet 1 Active finasteride (PROSCAR) 5 MG tablet Take 1 tablet by mouth 1 (one) time each day Active enoxaparin (LOVENOX) 100 MG/ML solution 2 (two) times a day Active donepezil (ARICEPT) 10 MG tablet Take 1 tablet by mouth 1 (one) time each day Active carbidopa-levod opa CR (SINEMET CR) 25-100 MG per CR tablet Take 1 tablet by mouth 3 (three) times a day Active amantadine (SYMMETREL) 100 MG tablet Take 1 tablet by mouth 2 (two) times a day Active allopurinol (ZYLOPRIM) 300 MG tablet 1 Active betamethasone, augmented, (DIPROLENE) 0.05 % cream betamethasone, augmented 0.05 % topical cream Active apixaban (ELIQUIS) 5 MG tablet Take 5 mg by mouth 2 (two) times a day Active tamsulosin (Flomax) 0.4 MG 24 hr capsule Take 0.4 mg by mouth 1 (one) time each day Active Cyanocobalamin (VITAMIN B12 PO) Take by mouth Active Active Problems Problem Noted Date Diagnosed Date Chronic kidney disease, 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 09/06/2021 Renal stone 09/06/2021 Simple renal cyst 09/06/2021 Onychomycosis 07/28/2020 Pain in toe 07/28/2020 Peripheral vascular disease 07/28/2020 Resolved Problems Problem Noted Date Diagnosed Date Resolved Date Stage 3a chronic kidney disease 09/07/2021 09/27/2022 Essential hypertension 09/06/202109/27 Family History Relation Status Comments Father Unknown Mother Unknown Social History Tobacco Use Types Packs/Day Years Used Date Smoking Tobacco: Never Smokeless Tobacco: Never Alcohol Use Standard Drinks/Week Comments No 0 (1 standard drink = 0.6 oz pur e alcohol) Sex and Gender Information Value Date Recorded Sex Assigned at Not on file Legal Sex Male 5:13 PM EST Gender Identity Not on file Sexual Orientation Not on file Last Filed Vital Signs Vital Sign Reading Time Taken Comments Blood Pressure 127/70 09/27/2022 1:41 PM EST Pulse 66 09/27/2022 1:41 PM EST Temperature - - Respiratory Rate - - Oxygen Saturation 96% 09/27/2022 1:41 PM EST Inhaled Oxygen Concentration - - Weight 78 kg (172 lb) 09/27/2022 1:41 PM EST Height 177.8 cm (5' 10 ) 09/07/2021 2:18 PM EST Body Mass Index 24.68 09/07/2021 2:18 PM EST Plan of Treatment Health Maintenance Due Date Last Done Comments Pneumococcal Vaccine: 50+ Ye ars (2 of 2 - PPSV23, PCV20, or PCV21) 02/15/2015 12/21/2014 Influenza Vaccine (#1) 2025 Pneumococcal Vaccine: Peds ( 0 to 5 Years) and At-Risk Patients (6 to 49 Years) Discontinued 12/21/2014 Hepatitis B Vaccine Aged Out No longe r eligible based on patient's age to complete this topic [place] [address] [facility] Care Teams Pen Or Pencil Assembly Machine Operator Relationship Specialty Start Date End Date Alex Mitchell MD [address] [place] [address] PCP - General Internal Medicine 09/27/22
--- OUTSIDE RECORDS SUMMARY | 2025-10-14 20:52 | XMS_ITS | Encounter Summary ---
Author Organization [facility] Address [address] [place] [address] Phone Care Team Providers Care Can Piler Name Role Phone Alex Mitchell MD Primary Care Provider + Avelino Aldana Primary Care Provider [phone]- [phone] Ghada Sousa NP Primary Care Provid er Encounter Details Date Type Department Care Team (Late st Contact Info) Description 10/08/2023 Procedure Pass [facility], Ct Scan - [address] [address] Social History Tobacco Use Types Packs/Day Years Used Date Smoking Tobacco: Never Smokeless Tobacco: Never Alcohol Use Standard Drinks/Week Comments No 0 (1 standard drink = 0.6 oz pur e alcohol) Education Answer Date Recorded Are you interested in more education? Not on odessa e 02/22/2023 Are you concerned about learning? Not on file 02/22/2023 No 02/22/2023 No 02/22/2023 Digital Access Answer Date Recorded No 03/21/2023 No 03/21/2023 No 03/21/2023 Reliable internet access at home? Not on file 03/21/2023 Device with a working camera? Not on file Intimate Partner Violence Answer Date R ecorded Are you denied basic needs s uch as food, clothing, or medical care? No 10/08/2023 In the past 12 months have y ou been in a relationship with a person who hurts, threatens, or tries to control you? No 10/08/2023 Are you denied basic needs s uch as food, clothing, or medical care? No 10/08/2023 In the past 12 months have y ou been in a relationship with a person who hurts, threatens, or tries to control you? No 10/08/2023 Sex and Gender Information Value Date Recorded Sex Assigned at Male 10/08/2023 3:28 PM EST Legal Sex Male 11:01 AM EDT Gender Identity Male 10/08/2023 3:28 PM EST Sexual Orientation Not on file documented as of this encounter Functional Status * Calculated C-SSRS Risk Score (Lifetime/Recent) Answer Date of Assessment Author No Risk Indicated 10/08/2023 3:28 PM EST Vivek Gore RN * [place] Suicide Severity Rating Scale (Screener/Recent Self-Report) Question Answer Date of Assessment Author 1. Wish to be (Past 1 Month) No 10/08/2023 3:28 PM EST Vivek Gore RN 2. Non-Specific Active Suicidal Thoughts (Past 1 Month) No 10/08/2023 3:28 PM EST Vivek Gore RN 6. Suicidal Behavior (Lifetime) No 10/08/2023 3:28 PM EST Vivek Gore RN documented as of this encounter Plan of Treatment Upcoming Encounters Date Type Department Care Team (Late st Contact Info) Description 12/22/2025 3:30 PM EST Telemedicine [facility] [address] [place] [address], [address] [place] [address] Grant Nix MD, PhD [address] [place], [place] [address] [address] [place] [address] [email or web address] documented as of this encounter Visit Diagnoses Not on filedocumented in this encounter Care Teams Can Piler Relationship Specialty Start Date End Date Alex Mitchell MD [address] [place] [address] PCP - General Internal Medicine 03/23/21 04/10/24 Avelino Aldana PA [address] [place] [address] PCP - General Physician Manager Merchandise 04/11/24 06/24/25 Ghada Sousa NP [address] [place] [address] PCP - General Nurse Practitioner 06/25/25 documented as of this encounter Additional Source Comments The information contained in this document represents components of the legal health record. It is not the complete legal health record.[facility]
--- OUTSIDE RECORDS SUMMARY | 2025-10-14 20:52 | XMS_ITS | Encounter Summary ---
Author Organization [facility] Address [address] [place] [address] Phone Care Team Providers Care Tow Operator Name Role Phone Alex Mitchell MD Primary Care Provider + Avelino Aldana Primary Care Provider [phone]- [phone] Ghada Sousa NP Primary Care Provid er Encounter Details Date Type Department Care Team (Late st Contact Info) Description 10/08/2023 Procedure Pass [facility], Ct Scan - [address] [address] Social History Tobacco Use Types Packs/Day Years [...] 3:28 PM EST Vivek Gore RN * [place] Suicide Severity Rating Scale (Screener/Recent Self-Report) Question [...] Info) Description 12/22/2025 3:30 PM EST Telemedicine [facility] Disorder [facility] [address] [place] [address], [address] [place] [address] Grant Nix MD, PhD [address] [place] [address]S [address] [place] [address] [email or web address] documented as of this encounter Visit Diagnoses Not on filedocumented in this encounter Care Teams Tow Operator Relationship Specialty Start Date End Date Alex Mitchell MD [address] [place] [address] PCP - General Internal Medicine 03/23/21 04/10/24 Avelino Aldana PA [address] [place] [address] PCP - General Physician Workday Manager 04/11/24 06/24/25 Ghada Sousa NP [address] [place] [address] PCP - General Nurse Practitioner 06/25/25 documented as of this encounter Additional Source Comments The information contained in this document represents components of the legal health record. It is not the complete legal health record.[facility]
--- OUTSIDE RECORDS SUMMARY | 2025-10-14 20:52 | XMS_ITS | Clinical Summary ---
Author Organization [address] [facility] Address [address] [place] [address] Phone Care Team Providers Care Caddy/Caddie Supervisor Name Role Phone Alex Mitchell MD Primary Care Provider Active Problems Problem Noted Date Diagnosed Date Longstanding persistent atrial fibrillation 07/30 Mitral regurgitation and aortic stenosis 025 Orthostatic hypotension 08/23/2025 Encounters Date Type Department Care Team Description 09/18/2025 Telephone [facility] [address] [place] [address] Shun Barone MD 09/10/[address] [place] [address] Shun Barone MD 09/05/2025 3:15 AM EST Ancillary Procedure [facility] [address] [facility] [address] [place] [address] 08/21/[address] [place] [address] Shun Barone MD 07/30/2025 Lab Requisition [facility] - Main Lab [address] [facility] [place] [phone] Giovani Jackman PA Urinary tract infection, site not specified from Last 3 Months Surgical History Surgery Date Site/Laterality Comments COLONOSCOPY PROCEDURE: HISTORICAL COLONOSCOPY Medical History Medical History Date Comments Gallstone DX:Gallstone Dementia without behavioral disturbance (CMS/HCC V24, CMS/HCC V28) DX:Dementia without behavio ral disturbance (HCC) Pacemaker DX:Pacemaker Biliary dyskinesia DX:Biliary dy skinesia Constipation DX:Constipation Overflow diarrhea DX:Overflow di arrhea Fatty liver DX:Fatty liver Social History Tobacco Use Types Packs/Day Years Used Date Smoking Tobacco: Never Smokeless Tobacco: Never Alcohol Use Standard Drinks/Week Comments Not Currently 0 (1 standard drink = 0.6 oz pur e alcohol) Sex and Gender Information Value Date Recorded Sex Assigned at Not on file Legal Sex Male 12:01 AM EST Gender Identity Not on file Sexual Orientation Not on file Last Filed Vital Signs Vital Sign Reading Time Taken Comments Blood Pressure 104/58 08/19/2024 3:42 PM EDT Sit ting L Arm Pulse 67 08/19/2024 3:42 PM EDT Temperature - - Respiratory Rate - - Oxygen Saturation - - Inhaled Oxygen Concentration - - Weight 67.6 kg (149 lb) 08/19/2024 3:42 PM EDT Height 175.3 cm (5' 9 ) 08/19/2024 3:42 PM EDT Body Mass Index 22 08/19/2024 3:42 PM EDT Plan of Treatment Upcoming Encounters Date Type Department Care Team (Late st Contact Info) Description 11/24/2025 3:00 PM EST Ancillary Procedure [facility] [address] [place] [phone] 01/21/2026 3:10 PM EDT Office Visit [facility] [address] [place] [address] [address] [place] [phone] Alpesh Robledo NP [address] [place] [address] [address] [place] [phone] Health Maintenance Due Date Last Done Comments Zoster Vaccines (1 of 2) 12/01/2019 019, 05/19/2019, 07/28/2011 RSV Immunization Adult Patients (1 - 1-dose 75+ series) 2020 Cholesterol Screening (Lipid Panel) 10/07/2022 Falls Risk Assessment 10/07/2022 Medicare Annual Wellness Visit 10/07/2022 Social Influencers of Health Screening 10/07/2022 Hypertension/CHF/CAD Annual BMP Blood Test 10/08/2022 Depression Screening 10/29/2024 COVID-19 Vaccine ( season) 2025 09/22/2024, 09/12/2023, 02/04/2022, Additional history exists DTaP,Tdap,and Td Vaccines (4 - Td or Tdap) 10/12/2031 10/12/2021, 07/28/2011, 07/28/2011 Pneumococcal Vaccine: 50+ Years Completed 02/20/2023, 12/21/2014, 02/28/2012 Influenza Vaccine Completed 08/03/2025, , 08/11/2022, Additional history exists HIB Vaccines Aged Out No longer eligi ble based on patient's age to complete this topic HPV Vaccines Aged Out No longer eligi ble based on patient's age to complete this topic Hepatitis A Vaccines Aged Out No long er eligible based on patient's age to complete this topic Hepatitis B Vaccines Aged Out No long er eligible based on patient's age to complete this topic IPV Vaccines Aged Out No longer eligi ble based on patient's age to complete this topic MMR Vaccines Aged Out No longer eligi ble based on patient's age to complete this topic Meningococcal ACWY Vaccine Aged Out N o longer eligible based on patient's age to complete this topic Meningococcal B Vaccine Aged Out No l onger eligible based on patient's age to complete this topic RSV Immunization Patients Under 20 months Aged Out No longer eligible based on patient's age to complete this topic Varicella Vaccines Aged Out No longer eligible based on patient's age to complete this topic Medical Devices Implanted Type Area Digital Marketing Executive Device Identifier Shelf Expiration Date Model / Serial / Lot [facility] 1272 Assurity Mri(Tm) [id number] Implanted: (Quantity not on file) Cardiac Pacemaker [facility] 1272 ASSURITY MRI(TM) / [id number] / Procedures Procedure Name Priority Date/Time Associated Diagnosis Comments CARDIAC DEVICE CHECK- REMOTE- MURJ Routine 09/05/2025 3:10 AM EST CULTURE URINE Routine 07/30/2025 12:00 AM EDT Urinary tract infection, site not specified from Last 3 Months Results * Cardiac device check - Remote- MURJ (09/05/2025 3:10 AM EST) Date Time Interrogation Session [id number] CV DEVICE CHECK Type Interrogation Session Remote Scheduled CV DEVICE CHECK Implantable Pulse Generator [employer] CV DEVICE CHECK Implantable Pulse Generator Type IPG CV DEVICE CHECK Implantable Pulse Generator Model 1272 Assurity MRI(TM) CV DEVICE CHECK Implantable Pulse Generator Serial Number [id number] CV DEVICE CHECK Implantable Pulse Generator Implant Date [id number] CV DEVICE CHECK Battery Remaining Percentage 46.00 CV DEVICE CHECK Battery Remaining Longevity 60.0 CV DEVICE CHECK Battery Voltage 2.980 CV D EVICE CHECK Battery CDL B DRIVER Trigger 2.600 CV DEVICE CHECK Battery Status Middle of Service CV DEVICE CHECK Jeffery Statistic RV Percent Paced 20.00 CV DEVICE CHECK Lead Channel Sensing Intrinsic Amplitude 5.700 CV DEVICE CHECK Lead Channel Setting Sensing Sensitivity 1.50 CV DEVICE CHECK Lead Channel Impedance Value 480 CV DEVICE CHECK Lead Channel Pacing Threshold Amplitude 0.625 CV DEVICE CHECK Lead Channel Pacing Threshold Pulse Width 0.5 CV DEVICE CHECK Lead Channel RV Pacing Threshold Date 2025-09-01 CV DEVICE CHECK Lead Channel Setting Pacing Amplitude 0.875 CV DEVICE CHECK Lead Channel Setting Pacing Pulse Width 0.5 CV DEVICE CHECK Jeffery Setting Mode (NBG Code) VVI CV DEVICE CHECK Jeffery Setting Lower Rate Limit 60 CV DEVICE CHECK Jeffery Setting Maximum Sensor Rate 130 CV DEVICE CHECK Date of Service 2025-09-11 CV DEVICE CHECK Anatomical Region Laterality Modality Device Interroga tion 09/01/2025 2:00 AM EST Impressions 09/04/2025 11:34 AM EST Normal Remote: No Events * Normal Device Function * Alerts or events: None * Battery: Battery is at 46%, 5.00 yrs * Sensing, impedance and thresholds reviewed * Programmed parameters reviewed * Presenting rhythm reviewed * Heart Rate Histograms reviewed * No significant changes noted Narrative Procedure Note Shun Cook MD - 09/05/2025 IMPRESSION: Normal Remote: No Events * Normal Device Function * Alerts or events: None * Battery: Battery is at 46%, 5.00 yrs * Sensing, impedance and thresholds reviewed * Programmed parameters reviewed * Presenting rhythm reviewed * Heart Rate Histograms reviewed * No significant changes noted Shun Cook MD CV IMPLANTABLE CARDIAC DEVICE PROCEDURES Final Result * Culture urine (07/30/2025 12:00 AM EDT) Culture, Urine <10,000 CFU/mL gram negative bacilli, insignificant count, no further workup 07/31/2025 12:23 PM EDT [facility] Urine Urine specimen obtained by clean catch procedure / Unknown 07/30/2025 07/30/2025 2:36 PM EDT [facility] MICROBIOLOGY - GENERAL ORD ERABLES Final Result [facility] [address] [place] [address], [place] [phone] from Last 3 Months Insurance [employer] ADVANTAGE [facility] Care Teams Caddy/Caddie Supervisor Relationship Specialty Start Date End Date Alex Mitchell MD [address] [place] [address] PCP - General Internal Medicine 09/26/21
--- OUTSIDE RECORDS SUMMARY | 2025-10-14 20:52 | XMS_ITS | Encounter Summary ---
Author Organization [facility] Address [address] [place] [address] Phone Care Team Providers Care Ambulance Dispatcher Name Role Phone Unknown, Unknown Primary Care Provider Alex Conley MD Primary Care Provider + Avelino Aldana Primary Care Provider +1- [phone] Ghada Sousa NP Primary Care Provid er Encounter Details Date Type Department Care Team (Late st Contact Info) Description 03/18/2018 Procedure Pass [facility] [address] [place] [address] Social History Tobacco Use Types Packs/Day Years [...] Info) Description 12/22/2025 3:30 PM EST Telemedicine [facility] [address], [address] [place] [address] Grant Nix MD, PhD [facility] [place] [address] [email or web address] documented as of this encounter Visit Diagnoses Not on filedocumented in this encounter Care Teams Ambulance Dispatcher Relationship Specialty Start Date End Date Unknown, Unknown, MD PCP - General 03/05/18 03/22/21 Alex Mitchell MD [address] [place] [address] PCP - General Internal Medicine 03/23/21 04/10/24 Avelino Aldana PA [address] [place] [address] PCP - General Physician Superintendent Geophysical Laboratory 04/11/24 06/24/25 Ghada Sousa NP [address] [place] [address] PCP - General Nurse Practitioner 06/25/25 documented as of this encounter Additional Source Comments The information contained in this document represents components of the legal health record. It is not the complete legal health record.[facility]
--- OUTSIDE RECORDS SUMMARY | 2025-10-14 20:52 | XMS_ITS | Encounter Summary ---
Author Organization [facility] Address [address] [place] [address] Care Team Providers Care Costing Analyst Name Role Phone Alex Mitchell MD Primary Care Provider [phone] Encounter Details Date Type Department Care Team (Late st Contact Info) Description 05/29/2025 Lab Requisition [facility] - Main Lab [address] [facility] [place] [phone] Giovani Jackman, KARLIE [address] [place] [phone] Urinary tract infection, site not specified Social History Tobacco Use Types Packs/Day Years Used Date Smoking Tobacco: Never Smokeless Tobacco: Never Alcohol Use Standard Drinks/Week Comments Not Currently 0 (1 standard drink = 0.6 oz pur e alcohol) Sex and Gender Information Value Date Recorded Sex Assigned at Not on file Legal Sex Male 12:01 AM EST Gender Identity Not on file Sexual Orientation Not on file documented as of this encounter Plan of Treatment Upcoming Encounters Date Type Department Care Team (Late st Contact Info) Description 11/24/2025 3:00 PM EST Ancillary Procedure [facility] Cardiology [facility] [address] [facility] [address] [place] [phone] 01/21/2026 3:10 PM EDT Office Visit [facility] Cardiology [facility] [place] [address] [place] [phone] Alpesh Robledo NP [address] [place] [address] [address] [place] [phone] documented as of this encounter Procedures Procedure Name Priority Date/Time Associated Diagnosis Comments URINALYSIS WITH REFLEX MICROSCOPIC Routine 05/29/2025 3:40 PM EDT Urinary tract infection, site not specified URINALYSIS WITH REFLEX MICROSCOPIC Routine 05/29/2025 3:40 PM EDT Urinary tract infection, site not specified CULTURE URINE Routine 05/29/2025 3:40 PM EDT Urinary tract infection, site not specified documented in this encounter Results * (ABNORMAL) Urinalysis with reflex microscopic (05/29/2025 3:40 PM EDT) Specific [place] Urine 1.019 1.003 - 1.030 LAB URINALYSIS - AUTOMATED METHOD 05/29/2025 6:57 PM [facility] pH, Urine 6.5 5.0 - 8.0 pH LAB URINALYSIS - AUTOMATED METHOD 05/29/2025 6:57 PM [facility] Leukocytes, Urine Moderate(A) Negative LAB URINALYSIS - AUTOMATED METHOD 05/29/2025 6:57 PM [facility] Nitrite, Urine Negative Negative LAB URINALYSIS - AUTOMATED METHOD 05/29/2025 6:57 PM [facility] Protein, Urine Trace <=Trace mg/dL LAB URINALYSIS - AUTOMATED METHOD 05/29/2025 6:57 PM [facility] Glucose, Urine Negative Negative mg/dL LAB URINALYSIS - AUTOMATED METHOD 05/29/2025 6:57 PM [facility] Ketones, Urine Negative Negative mg/dL LAB URINALYSIS - AUTOMATED METHOD 05/29/2025 6:57 PM [facility] Urobilinogen , Urine 0.2 0.2 - 1.0 mg/dL LAB URINALYSIS - AUTOMATED METHOD 05/29/2025 6:57 PM [facility] Bilirubin, Urine Negative Negative LAB URINALYSIS - AUTOMATED METHOD 05/29/2025 6:57 PM EDT [facility] Blood, Urine Moderate(A) Negative LAB URINALYSIS - AUTOMATED METHOD 05/29/2025 6:57 PM EDT [facility] RBC, Urine 81.7(H) 0 - 4 /HPF LAB URINALYSIS - AUTOMATED METHOD 05/29/2025 6:57 PM EDT [facility] WBC, Urine 42.8(H) 0 - 4 /HPF LAB URINALYSIS - AUTOMATED METHOD 05/29/2025 6:57 PM EDT [facility] Squamous Epithelial, Urine 40 0 - 60 /LPF LAB URINALYSIS - AUTOMATED METHOD 05/29/2025 6:57 PM EDT [facility] Non-Squamous Epithelial, Urine ..Rare Transitional epithelial cells. /LPF LAB URINALYSIS - AUTOMATED METHOD [facility]25 6:[facility] Crystals, Urine ..Light Calcium Oxalate crystals. /LPF LAB URINALYSIS - AUTOMATED METHOD 05/29/2025 6:57 PM EDT [facility] Bacteria, Urine Few(A) Negative /HPF LAB URINALYSIS - AUTOMATED METHOD 05/29/2025 6:57 [facility] Hyaline Casts, Urine 1.2 0 - 3 /LPF LAB URINALYSIS - AUTOMATED METHOD 05/29/2025 6:57 PM EDT [facility] Yeast, Urine Present(A) None /HPF LAB URINALYSIS - AUTOMATED METHOD 05/29/2025 6:57 PM EDT [facility] Urine Urine specimen obtained by clean catch procedure / Unknown Non-blood Collection / Unknown 05/29/2025 3:40 PM EDT 05/29/2025 5:33 PM EDT us Giovani ZIEGLER LAB URINE ORDERABLES Final Res ult [facility] [address] [place] [address], [place] [phone] * (ABNORMAL) Culture urine (05/29/2025 3:40 PM EDT) Culture, Urine 50,000-100,000 CFU/mL Escherichia coli(A) MARGARITA 05/31/2025 8:45 AM EDT [facility] Urine Urine specimen obtained by clean catch procedure / Unknown Non-blood Collection / Unknown 05/29/2025 3:40 PM EDT 05/29/2025 5:33 PM EDT Narrative Organism Antibiotic Method Susceptibility Escherichia coli Amoxicillin/Clavulanate MARGARITA 4 ug/ml: Susceptible Escherichia coli Ampicillin/Sulbactam MARGARITA 4 ug/ml: Susceptible Escherichia coli Piperacillin/Tazobactam MARGARITA <=4 ug/ml: Susceptible Escherichia coli Cefazolin (Urine) MARGARITA <=1 ug/ml: Susceptible Escherichia coli Cefoxitin MARGARITA <=4 ug/ml: Susceptible Escherichia coli Ceftazidime MARGARITA <=0.5 ug/ml: Susceptible Escherichia coli Ceftriaxone MARGARITA <=0.25 ug/ml: Susceptible Escherichia coli Cefepime MARGARITA <=0.12 ug/ml: Susceptible Escherichia coli Meropenem MARGARITA <=0.25 ug/ml: Susceptible Escherichia coli Amikacin MARGARITA 2 ug/ml: Susceptible Escherichia coli Gentamicin MARGARITA <=1 ug/ml: Susceptible Escherichia coli Ciprofloxacin MARGARITA <=0.06 ug/ml: Susceptible Escherichia coli Levofloxacin MARGARITA <=0.12 ug/ml: Susceptible Escherichia coli Nitrofurantoin MARGARITA <=16 ug/ml: Susceptible Escherichia coli Trimethoprim/Sulfamethoxazole MARGARITA <=20 ug/ml: Susceptible us Giovani Jackman PA LAB MICROBIOLOGY - GENERAL ORD ERABLES Final Result [facility] [address] [place] [address], [place] [phone] documented in this encounter Visit Diagnoses Diagnosis Urinary tract infection, site not specified documented in this encounter Care Teams Costing Analyst Relationship Specialty Start Date End Date Alex Mitchell MD [address] [place] [address] PCP - General Internal Medicine 09/26/21 documented as of this encounter
--- OUTSIDE RECORDS SUMMARY | 2025-10-14 20:52 | XMS_ITS | Clinical Summary ---
Author Organization [facility] Address [address] [facility] [address] [place] [phone] Phone Care Team Providers Care Human Resources Temp Name Role Phone Ghada Sousa NP Primary Care Provid er Allergies Active Allergy Reactions Criticality Noted Date Comments Cat Dander Other (See Comments) 03/13/2018 Itchy eyes House Dust Sneezing 03/13/2018 Medications allopurinol (ZYLOPRIM) 300 MG tablet Take 300 mg by mouth daily. Active carbidopa-levodo pa (SINEMET) 10-100 mg per tablet Take 2 tablets by mouth 3 (three) times a day. Active donepezil (ARICEPT) 5 MG tablet Take 10 mg by mouth nightly at bedtime. Taking two 10 mg tablets in the morning. Active finasteride (PROSCAR) 5 mg tablet Take 5 mg by mouth daily. Active levothyroxine (SYNTHROID, LEVOTHROID) 100 MCG tablet Take 125 mcg by mouth every morning. Active rasagiline (AZILECT) 0.5 mg tablet Take 1 mg by mouth daily. Active tamsulosin (FLOMAX) 0.4 mg Cp24 Take 0.4 mg by mouth daily. Active vitamin B complex (B COMPLEX 1 ORAL) Take 1 tablet by mouth daily. Active apixaban (ELIQUIS) 5 mg tablet Take 1 tablet by mouth 2 (two) times a day. 09/21/20 23 Active fludrocortisone (FLORINEF) 0.1 mg tablet Take 0.1 mg by mouth daily. 0.2 daily Active midodrine (PROAMATINE) 10 MG tablet Take 10 mg by mouth 3 (three) times a day. Active Medication-Free TextIndications: Potassium powder 15 ml/20 mg once daily Indications: Potassium powder 15 ml/20 mg once daily Active sertraline (ZOLOFT) 25 MG tablet Take 25 mg by mouth daily. Active ursodioL (ACTIGALL) 250 mg tablet Take 250 mg by mouth. Active Medication-Free TextIndications: Kraus Joint relief Indications: Kraus Joint relief Active melatonin 5 mg Tab Take 20 mg by mouth nightly at bedtime. Active polyethylene glycol (MIRALAX) 17 gram/dose powder Take 17 g by mouth 3 (three) times a day. Active docusate sodium (COLACE) 100 MG capsuleIndicatio ns:6 capsules daily Take 100 mg by mouth 3 (three) times a day. Taking 100 mg (taking 200 mg TID) Indications: 6 capsules daily Active Medication-Free TextIndications: Align Probiotic Indications: Align Probiotic Active Medication-Free TextIndications: Ensure 1/2-1 bottle daily Indications: Ensure 1/2-1 bottle daily Active bisacodyl (DULCOLAX) 10 mg suppositoryIndic ations:Slow transit constipation Place 1 suppository (10 mg total) rectally daily. 90 suppository 3 08/13/20 24 Active prucalopride (MOTEGRITY) 2 mg tabletIndication s:Slow transit constipation Take 1 tablet (2 mg total) by mouth daily. 30 tablet 3 08/13/20 24 Active linaCLOtide (LINZESS) 145 mcg CapIndications:S low transit constipation Take 1 capsule (145 mcg total) by mouth daily before breakfast. 90 capsule 09/11/20 24 Active memantine (NAMENDA) 5 MG tablet Take 1 tablet (5 mg total) by mouth 2 (two) times a day. 60 tablet 5 07/21/20 25 026 Active Active Problems No known active problems Encounters Date Type Department Care Team Description 07/21/2025 2:00 PM EDT Telemedicine [facility] [address] [place] [address], [address] [place] [address], [address] [place] [address] Grant Nix MD, PhD Alzheimer's disease (Primary Dx) from Last 3 Months Social History Tobacco Use Types Packs/Day Years [...] PM EST Sexual Orientation Not on file Last Filed Vital Signs Vital Sign Reading Time Taken Comments Blood Pressure 120/75 08/13/2024 12:23 PM EDT Pulse 66 08/13/2024 12:23 PM EDT Temperature 36.6 C (97.9 F) 08/13/2024 12:23 PM EDT Respiratory Rate 16 10/08/2023 6:12 PM EST Oxygen Saturation 100% 08/13/2024 12:23 PM EDT Inhaled Oxygen Concentration - - Weight 64.6 kg (142 lb 8 oz) 08/13/2024 12:23 PM EDT Height 180.3 cm (5' 11 ) 10/08/2023 3:27 PM EST Body Mass Index 19.87 10/08/2023 3:27 PM EST Plan of Treatment Upcoming Encounters Date Type Department Care Team (Late st Contact Info) Description 12/22/2025 3:30 PM EST Telemedicine [facility] [address] [facility], [address] [place] [address], [address] [place] [address] Grant Nix MD, PhD [address] [facility] [address] [place] [address] [email or web address] Health Maintenance Due Date Last Done Comments LIPID PANEL 1945 TSH LEVEL 1945 DEPRESSION SCREENING 1957 PNEUMOCOCCAL VACCINES (50+ years) (2 of 2 - PCV20 or PCV21) 12/21/2015 12/21/2014 ZOSTER VACCINES (2 of 3) 12/01/2019 019, 05/19/2019, 07/28/2011 RSV VACCINE (1 - 1-dose 75+ series) 2020 CREATININE LEVEL 10/08/2024 10/08/2023 INFLUENZA VACCINE (#1) 2025 4, 09/15/2021, 08/13/2020, Additional history exists COVID-19 VACCINE (2024- season) 2025 08/15/2022, 02/04/2022, 08/08/2021, Additional history exists Adult Td,Tdap Booster 10/12/2031 10/12/2021, 011 SMOKING STATUS SCREENING (Once After 26 Yrs) Completed 03/18/2018 HEPATITIS A VACCINES Aged Out No long er eligible based on patient's age to complete this topic HIB VACCINES Aged Out No longer eligi ble based on patient's age to complete this topic MENINGOCOCCAL VACCINES (ACWY) Aged Out No longer eligible based on patient's age to complete this topic MENINGOCOCCAL VACCINES (B) Aged Out N o longer eligible based on patient's age to complete this topic Medical Devices Implanted Type Area Manufacturing Sales Representative Device Identifier Shelf Expiration Date Model / Serial / Lot Lead Pacing Tendril Mri 58cm - [id number] Implanted:Qty: 1 on 03/18/2018 by Андрей Davila MD at [facility] Lead [employer] 04/05/2018 [id number] / / Pacemaker Single Chamber Rothman Pacemaker Assurity Mri - [id number] Implanted:Qty: 1 on 03/18/2018 by Андрей Davila MD at [facility] Pacemaker [employer] 06/28/2019 [id number] / / Procedures Procedure Name Priority Date/Time Associated Diagnosis Comments BASIC METABOLIC PANEL (BMP) STAT 10/08/2023 3:35 PM EST from Last 3 Months or Most Recently Relevant to Health Maintenance Results * (ABNORMAL) Basic metabolic panel (10/08/2023 3:35 PM EST) SODIUM 141 133 - 146 mmol/L [facility] CHLORIDE 104 96 - 108 mmol/L [facility] POTASSIUM 3.3 3.3 - 5.1 mmol/L [facility] CO2 28 21 - 35 mmol/L [facility] BUN 17 6 - 19 mg/dL [facility] CREATININE 1.00 0.5 - 1.5 mg/dL [facility] GLUCOSE 150(H) 70 - 99 mg/dL [facility] CALCIUM 9.0 8.4 - 10.3 mg/dL [facility] EGFR 77 >59 mL/min/1.7 3m2 [facility] Comment:Estimated glomerular filtration rate calculated using the CKD-EPI refit equation. ANION GAP 12 10 - 20 mmol/L [facility] Blood 10/08/2023 3:35 PM EST 10/08/2023 3:45 PM EST Adam Davila MD LAB BLOOD BKR ORDERABLES Final R esult [facility] [address] [place] [address] from Last 3 Months or Most Recently Relevant to Health Maintenance Insurance [employer] [place] [employer] H[employer] REPLACEMENT [facility] [employer] [place] [employer] REPLACEMENT [facility] Member Subscriber Plan / Payer (Ef fective 2020-Present) Name:Avelino Roach Relation to Subscriber:Self Name:Avelino Roach Payer ID:Not on file Type:Medicare Address: [address] [employer] [place] [employer] H[employer] REPLACEMENT [employer] Member Subscriber Plan / Payer (Ef fective 2020-Present) Name:Avelino Roach Relation to Subscriber:Self Name:Avelino Roach Payer ID:Not on file Type:Medicare Address: [address] [employer] [place] [employer] REPLACEMENT Member Subscriber Plan / Payer (Ef fective 2020-Present) Name:SoleAvelino castro Relation to Subscriber:Self Name:Avelino Roach Payer ID:Not on file Type:Medicare Address: [address] [employer] [place] H[employer] REPLACEMENT Member Subscriber Plan / Payer (Ef fective 2020-Present) Name:Solematthew Avelino Relation to Subscriber:Self Name:SoleAvelino castro Payer ID:Not on file Type:Medicare Address: [address] Advance Directives For more information, please contact: [phone] (9AM - 5PM [place], Sunday-Sunday) * Full Code (Confirmed) (Latest Code Status on File) Date Activated Date Inactivated Comments 03/18/2018 11:30 AM 03/18/2018 3:03 PM Question Answer Comments Code Status Confirmed With: Patient Care Teams Human Resources Temp Relationship Specialty Start Date End Date Ghada Sousa NP [address] [place] [address] PCP - General Nurse Practitioner 06/25/25 Additional Source Comments The information contained in this document represents components of the legal health record. It is not the complete legal health record.[facility]
--- OUTSIDE RECORDS SUMMARY | 2025-10-14 20:52 | XMS_ITS | Encounter Summary ---
Author Organization [facility] Address [address] [place] [address] Care Team Providers Care Body Mechanic Name Role Phone Alex Mitchell MD Primary Care Provider Encounter Details Date Type Department Care Team (Late st Contact Info) Description 07/30/[address] [facility] - Main Lab [address] [facility] [place] [phone] Giovani Jackman, KARLIE [address] [place] [phone] Urinary tract infection, site not specified Social [...] Description 11/24/2025 3:00 PM EST Ancillary Procedure [facility] [address] [facility] [address] [place] [phone] 01/21/2026 3:10 PM EDT Office Visit [facility] Cardiology [facility] [place] [address] [place] [phone] Alpesh Robledo NP [address] [place] [address] [address] [place] [phone] documented as of this encounter Procedures Procedure Name Priority Date/Time Associated Diagnosis Comments CULTURE URINE Routine 07/30/2025 12:00 AM EDT Urinary tract infection, site not specified documented in this encounter Results * Culture urine (07/30/2025 12:00 AM EDT) Culture, Urine <10,000 CFU/mL gram negative bacilli, insignificant count, no further workup 07/31/2025 12:23 PM EDT [facility] Urine Urine specimen obtained by clean catch procedure / Unknown 07/30/2025 07/30/2025 2:36 PM EDT us Giovani ZIEGLER LAB MICROBIOLOGY - GENERAL ORD ERABLES Final Result [facility] [address] [place] [address], documented in this encounter Visit Diagnoses Diagnosis Urinary tract infection, site not specified documented in this encounter Care Teams Body Mechanic Relationship Specialty Start Date End Date Alex Mitchell MD [address] [place] [address] PCP - General Internal Medicine 09/26/21 documented as of this encounter
--- OUTSIDE RECORDS SUMMARY | 2025-10-14 20:52 | XMS_ITS | Encounter Summary ---
Author Organization [facility] Address [address] [place] [address] Care Team Providers Care Telephone Interceptor Operator Name Role Phone Alex Mitchell MD Primary Care Provider [phone] Encounter Details Date Type Department Care Team (Late st Contact Info) Description 05/20/2025 Lab Requisition [facility] - Main Lab [address] [facility] [place] [address] Giovani Jackman, KARLIE [address] [place] [address] Calculus of kidney Social History Tobacco Use Types Packs/Day Years [...] Description 11/24/2025 3:00 PM EST Ancillary Procedure [facility] Cardiology [facility] [address] [facility] [address] [place] [phone] 01/21/2026 3:10 PM EDT Office Visit [facility] Cardiology [facility] Medical [place] [address] [place] [address] Alpesh Robledo NP [facility] [address] [place] [phone] documented as of this encounter Procedures Procedure Name Priority Date/Time Associated Diagnosis Comments STONE ANALYSIS Routine 05/19/2025 4:45 PM EDT Calculus of kidney documented in this encounter Results * Stone analysis (05/19/2025 4:45 PM EDT) Component(s) See below 05/25/2025 8:19 PM EDT [facility] Comment: 33% Calcium oxalate dihydrate (Weddellite) 33% Amorphous carbonated calcium phosphate 33% Carbonate apatite (Dahllite) Stone Weight 0.1115 g 05/25/2025 8:19 PM EDT [facility] Comment: This test was developed and its performance characteristics determined by [facility] in a manner consistent with CLIA requirements. This test has not been cleared or approved by the U.S. Food and Drug Administration. Test performed at [facility], [address] , [place] [address] Isabelle Oakley MD, PhD - Coupling Machine Operator Calculus 05/19/2025 4:45 PM EDT 05/20/2025 12:10 PM EDT us Giovani R Augustina PA LAB BODY FLUIDS AND STOOLS ORD ERABLES Final Result [facility] [address] [place] [address] documented in this encounter Visit Diagnoses Diagnosis Calculus of kidney documented in this encounter Care Teams Telephone Interceptor Operator Relationship Specialty Start Date End Date Alex Mitchell MD [address] [place] [address] PCP - General Internal Medicine 09/26/21 documented as of this encounter
== END 2025-10-15 11:33 | disposition home or self-care (01) ==
LOC: HO.HSMS 16:08
PROVIDERS: PCP Internal Medicine; Visit Provider Nurse Practitioner Family
DX: G20.A2 Parkinson's disease without dyskinesia, with fluctuations (principal); I95.1 Orthostatic hypotension
CPT/HCPCS: 99214; G2211